=== PATIENT | male | born 1975 | race Caucasian/White ===

== ENCOUNTER 2016-09-03 19:33 | Emergency (ER) | payer OTHER ==
[~2016-09-03 19:33] MED LIST: ALBUTEROL HFA60 DOSE IN; BACTRIM DS1 TAB PO; COMBIVENT RESPIMAT IN; METHADONE HCL10 MG PO; PREDNISONE20 MG PO
--- NOTE | 2016-09-03 21:04 | DIAGNOSTIC IMAGING REPORT ---
PROCEDURE: XR CHEST 2 VIEW INDICATION: FEVER TECHNIQUE: PA and lateral view. COMPARISON: Chest x-ray 06/07/2016 FINDINGS: Hyperinflation. Lungs are clear. Cardiovascular structures are normal. Gastric lap band device in the upper abdomen. Bony thorax is unremarkable. IMPRESSION: 1. Negative chest.
--- NOTE | 2016-09-03 21:19 | ED ORDER SUMMARY ---
..... Patient: PAWEL XAVIER OrderSheet [facility] VisitID: [id number] [address] [place] [address] 41y, M Registration Date/Time: 09/03/2016 ORDER SHEET Weight: 85.2 kg (stated) Allergies: Amoxicillin GENERAL ORDERS: EKG - ER Stat (19:51 09/03/2016 DBeyer R.N. per protocol) (Cancelled: Other19:53 46elks ER Sas Bi Developer) Chest 2V Urgent (19:52 09/03/2016 HBivens A.R.N.P.) (Ack 19:57 Khari) (21:11 Arvin) MEDICATION ORDERS: Albuterol Neb Tx 1 unit dose (NOW) (19:44 09/03/2016 DBeyer R.N. per protocol) (19:53 46elks ER Sas Bi Developer) Albuterol Neb w Atrovent 1 unit dose (NOW) (19:53 09/03/2016 HBivens A.R.N.P.) (Ack 19:59 CHategekimana) Albuterol Neb Tx 2 unit doses (NOW) (19:53 09/03/2016 HBivens A.R.N.P.) (Ack 19:59 CHategekimana) Solu-MEDROL IM 125 mg (NOW) (19:53 09/03/2016 HBivens A.R.N.P.) (Ack 19:59 CHategekimana) (20:08 DBeyer R.N.) IV FLUIDS: ORDER SHEET NOTES: [Electronically signed by Brianna Beard A.R.N.P. (22:04 09/03/2016)] [Electronically signed by Marlo Meyers R.N. (00:43 09/04/2016)] [Electronically locked/signed by Marlo Meyers R.N. (00:43 09/04/2016)]
--- NOTE | 2016-09-03 21:19 | ED NURSING NOTES ---
Clinical Report - Nurses [facility] [address] [place] [address] 09/03/2016 19:34 Patient: PAWEL XAVIER TRIAGE Triage time 19:41 Sep 03 2016. Acuity: LEVEL 2. Chief Complaint: SHORTNESS OF BREATH, DIFFICULTY BREATHING and "ASTHMA ATTACK". --19:43 Marlo Meyers R.N. 19:41 09/03/16. BP: 151/105. HR: 130. RR: 22. O2 saturation: 90%. Temp: 100.2 F. Pain level now 0/10. --19:43 Marlo Meyers R.N. 19:44 09/03/16. O2 saturation: 85%. --19:44 Marlo Meyers R.N. Weight: 85.2 kg stated. Height/Length: 75 inches Per Patient. BMI: 23.5. --19:43 Marlo Meyers R.N. Medications Albuterol Sulfate Inhalation (currently out). --20:10 Marlo Meyers R.N. Allergies Amoxicillin. --20:10 Marlo Meyers R.N. History Arrived by private vehicle. ( Pt reports SOB for multiple days worse today). 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 SOCIAL HX: Never smoker. No alcohol use or drug use. --19:43 Marlo Meyers R.N. SOCIAL HX: History of drug use: methamphetamines. (hx of abuse 20:11 Sep 03 2016). --20:11 Marlo Meyers R.N. PROBLEMS: Lifestyle / Substance Problems. Abscess. Lung Disease. Substance Abuse. Cellulitis. Infections. Hives. Allergic Reaction. --20:10 Marlo Meyers R.N. ADDITIONAL SURGERIES: Adenoidectomy. Appendectomy. Bariatric Surgery. Fracture Repair. Lithotripsy. Pyloric Stenosis Surgery. Tonsillectomy. --20:10 Marlo Meyers R.N. Interventions ID band on patient. To treatment room. --19:43 Marlo Meyers R.N. PHYSICAL ASSESSMENT GENERAL / NEURO / PSYCH: Alert. Oriented X 4. Appears anxious. RESPIRATORY: Moderate respiratory distress. The patient can speak in full sentences. Expiratory and inspiratory bilateral wheezes diffusely. --19:46 Marlo Meyers R.N. GI / : Abdomen soft. Bowel sounds within normal limits. SKIN: Skin is warm and dry. --19:46 Marlo Meyers R.N. NURSING PROGRESS NOTES director of ancillary services and pulse oximeter placed on patient. Reassurance given. Call light placed in reach. Side rails up x 1. Bed placed in lowest position. ( Pt gowned on broiler manager , neb treatment in progress DESIGNER WRITER is at bedside). --19:52 Marlo Meyers R.N. 19:53 09/03/2016 Albuterol Neb TX Nebulizer 1 unit dose given. Given by the respiratory therapist. Allergies verified and confirmed 5 rights. --19:53 Serge Stanton, ER Patient Support Assistant 20:07 09/03/2016 Site #1 started via IV in the right forearm with an 20g angiocath, with aseptic technique; one attempt. Blood drawn: rainbow set. Labeled in the presence of the patient. Saline lock flushed with saline. --20:07 Marlo Meyers R.N. 20:08 09/03/2016 SOLU-MEDROL (MethylPREDNISolone Sodium Succ) IVP 125 mg given over 2 minute(s) via site #1. Allergies verified and confirmed 5 rights. IV patency established. IV site checked: no pain, redness, or swelling. IV flushed thoroughly pre- and post-medication administration. IVP given by RN (DOSE given IV per provider verb al order). --20:08 Marlo Meyers R.N. ( Pt 85% RA 02 placed on 2L NC increased to 95 02 sat). --20:46 Marlo Meyers R.N. 20:45 09/03/16. BP: 134/85. HR: 123. O2 saturation: 85%. --20:46 Marlo Meyers R.N. DISPOSITION / DISCHARGE 21:31 09/03/2016 Site #1 removed upon discharge. Bandage applied. --21:31 Marlo Meyers R.N. No learning barriers present. Discharge instructions provided and reviewed with the patient. Reviewed warnings. Reviewed medication(s). Treatments reviewed. Reviewed referrals. Patient verbalized understanding. Written instructions provided in Indonesian. The patient was discharged by the nurse practitioner. He was discharged home and accompanied by books binder. He left the Emergency Department ambulatory and via private vehicle. Plant Tour Guide driving. ( Pt ambulated on discharge verbalized feeling safe to go home and understanding of discharge instructions follow up care and medication admin. Pt no longer had distress while breathing). --21:32 Marlo Meyers R.N. 21:30 09/03/16. BP: 133/80. HR: 118. RR: 20. O2 saturation: 95%. Temp: 99.5 F. Pain level now 0/10. --21:32 Marlo Meyers R.N. Departure time: 2130. --21:32 Marlo Meyers R.N. Locked/Released at 09/04/2016 0:43 by Marlo Meyers R.N.
--- NOTE | 2016-09-03 21:19 | ED NURSING NOTES ---
Clinical Report - Nurses [place] [address] [place] [address] 09/03/2016 19:34 Patient: PAWEL XAVIER TRIAGE Triage time 19:41 Sep 03 2016. Acuity: LEVEL 2. Chief Complaint: SHORTNESS OF BREATH, DIFFICULTY BREATHING and "ASTHMA ATTACK". --19:43 Marlo Meyers R.N. 19:41 09/03/16. BP: 151/105. HR: 130. RR: 22. O2 saturation: 90%. Temp: 100.2 F. Pain level now 0/10. --19:43 Marlo Meyers R.N. 19:44 09/03/16. O2 saturation: 85%. --19:44 Marlo Meyers R.N. Weight: 85.2 kg stated. Height/Length: 75 inches Per Patient. BMI: 23.5. --19:43 Marlo Meyers R.N. Medications Albuterol Sulfate Inhalation (currently out). --20:10 Marlo Meyers R.N. Allergies Amoxicillin. --20:10 Marlo Meyers R.N. History Arrived by private vehicle. ( Pt reports SOB for multiple days worse today). 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 SOCIAL HX: Never smoker. No alcohol use or drug use. --19:43 Marlo Meyers R.N. SOCIAL HX: History of drug use: methamphetamines. (hx of abuse 20:11 Sep 03 2016). --20:11 Marlo Meyers R.N. PROBLEMS: Lifestyle / Substance Problems. Abscess. Lung Disease. Substance Abuse. Cellulitis. Infections. Hives. Allergic Reaction. --20:10 Marlo Meyers R.N. ADDITIONAL SURGERIES: Adenoidectomy. Appendectomy. Bariatric Surgery. Fracture Repair. Lithotripsy. Pyloric Stenosis Surgery. Tonsillectomy. --20:10 Marlo Meyers R.N. Interventions ID band on patient. To treatment room. --19:43 Marlo Meyers R.N. PHYSICAL ASSESSMENT GENERAL / NEURO / PSYCH: Alert. Oriented X 4. Appears anxious. RESPIRATORY: Moderate respiratory distress. The patient can speak in full sentences. Expiratory and inspiratory bilateral wheezes diffusely. --19:46 Marlo Meyers R.N. GI / : Abdomen soft. Bowel sounds within normal limits. SKIN: Skin is warm and dry. --19:46 Marlo Meyers R.N. NURSING PROGRESS NOTES personnel monitor and pulse oximeter placed on patient. Reassurance given. Call light placed in reach. Side rails up x 1. Bed placed in lowest position. ( Pt gowned on personnel monitor , neb treatment in progress PARAPROFESSIONAL EDUCATION ASSISTANT is at bedside). --19:52 Marlo Meyers R.N. 19:53 09/03/2016 Albuterol Neb [place] Nebulizer 1 unit dose given. Given by the respiratory therapist. Allergies verified and confirmed 5 rights. --19:53 Serge Stanton, ER Manager Recruiting 20:07 09/03/2016 Site #1 started via IV in the right forearm with an 20g angiocath, with aseptic technique; one attempt. Blood drawn: rainbow set. Labeled in the presence of the patient. Saline lock flushed with saline. --20:07 Marlo Meyers R.N. 20:08 09/03/2016 SOLU-MEDROL (MethylPREDNISolone Sodium Succ) IVP 125 mg given over 2 minute(s) via site #1. Allergies verified and confirmed 5 rights. IV patency established. IV site checked: no pain, redness, or swelling. IV flushed thoroughly pre- and post-medication administration. IVP given by RN (DOSE given IV per provider verb al order). --20:08 Marlo Meyers R.N. ( Pt 85% RA 02 placed on 2L NC increased to 95 02 sat). --20:46 Marlo Meyers R.N. 20:45 09/03/16. BP: 134/85. HR: 123. O2 saturation: 85%. --20:46 Marlo Meyers R.N. DISPOSITION / DISCHARGE 21:31 09/03/2016 Site #1 removed upon discharge. Bandage applied. --21:31 Marlo Meyers R.N. No learning barriers present. Discharge instructions provided and reviewed with the patient. Reviewed warnings. Reviewed medication(s). Treatments reviewed. Reviewed referrals. Patient verbalized understanding. Written instructions provided in Swedish. The patient was discharged by the nurse practitioner. He was discharged home and accompanied by apprenticeship training representative. He left the Emergency Department ambulatory and via private vehicle. Stencil Machine Operator driving. ( Pt ambulated on discharge verbalized feeling safe to go home and understanding of discharge instructions follow up care and medication admin. Pt no longer had distress while breathing). --21:32 Marlo Meyers R.N. 21:30 09/03/16. BP: 133/80. HR: 118. RR: 20. O2 saturation: 95%. Temp: 99.5 F. Pain level now 0/10. --21:32 Marlo Meyers R.N. Departure time: 2130. --21:32 Marlo Meyers R.N. Locked/Released at 09/04/2016 0:43 by Marlo Meyers R.N.
--- NOTE | 2016-09-03 21:19 | ED ORDER SUMMARY ---
..... Patient: PAWEL XAVIER OrderSheet [facility] VisitID: [id number] [address] [place] [address] 41y, M Registration Date/Time: 09/03/2016 ORDER SHEET Weight: 85.2 kg (stated) Allergies: Amoxicillin GENERAL ORDERS: EKG - ER Stat (19:51 09/03/2016 DBeyer R.N. per protocol) (Cancelled: Other19:53 Accumetrics ER Heel Dipper) Chest 2V Urgent (19:52 09/03/2016 HBivens A.R.N.P.) (Ack 19:57 Khari) (21:11 Arvin) MEDICATION ORDERS: Albuterol Neb Tx 1 unit dose (NOW) (19:44 09/03/2016 DBeyer R.N. per protocol) (19:53 Accumetrics ER Heel Dipper) Albuterol Neb w Atrovent 1 unit dose (NOW) (19:53 09/03/2016 HBivens A.R.N.P.) (Ack 19:59 CHategekimana) Albuterol Neb Tx 2 unit doses (NOW) (19:53 09/03/2016 HBivens A.R.N.P.) (Ack 19:59 CHategekimana) Solu-MEDROL IM 125 mg (NOW) (19:53 09/03/2016 HBivens A.R.N.P.) (Ack 19:59 CHategekimana) (20:08 DBeyer R.N.) IV FLUIDS: ORDER SHEET NOTES: [Electronically signed by Brianna Beard A.R.N.P. (22:04 09/03/2016)] [Electronically signed by Marlo Meyers R.N. (00:43 09/04/2016)] [Electronically locked/signed by Marlo Meyers R.N. (00:43 09/04/2016)]
--- NOTE | 2016-09-03 21:19 | ED CLINICAL REPORT ---
Clinical Report - Physicians/Mid Levels [facility] [address] [place] [address] 09/03/2016 19:34 Patient: PAWEL XAVIER Time Seen: 19:51; initial patient contact, initial documentation, patient care assumed. Arrived- By private vehicle. Historian- patient. HISTORY OF PRESENT ILLNESS Chief Complaint: DYSPNEA, WHEEZING and HISTORY OF ASTHMA. This started about 1 weeks ago and is still present. The dyspnea is described as moderate. He has had dyspnea at rest. The patient has had a cough and orthopnea. No chest pain or discomfort. See nurses notes for current asthma threapy. Asthma triggers: unknown. Takes asthma medications (inhaled albuterol, albuterol by nebulizer), missing tubing to do neb tx at home. Similar symptoms previously: Chronically, milder. Recent medical care: Not recently seen/assessed. REVIEW OF SYSTEMS The patient has had a nasal discharge. No sinus drainage or fever. All systems otherwise negative, except as recorded above. SOCIAL HISTORY Never smoker. No alcohol use or drug use. No recent travel. Is a local resident. FAMILY HISTORY Negative. ADDITIONAL NOTES The nursing notes have been reviewed with agreement regarding the chief complaint, HPI, ROS, PMH and patient medications and allergies. PHYSICAL EXAM Vital Signs: 09/03/2016 19:41 BP: 151/105. HR: 130. RR: 22. O2 saturation: 90%. Temp: 100.2 F. Have been reviewed as abnormal and appear to be correct. Blood pressure normal. Tachycardic. Respiratory rate normal. Febrile. Oxygen saturation normal. Appearance: Alert. No acute distress. Eyes: Pupils equal, round and reactive to light. Eyes normal inspection. Neck: Normal inspection. Neck supple. CVS: Heart rate / rhythm abnormal. Tachycardia (ventricular rate = 136). Heart sounds normal. Pulses normal. Respiratory: No respiratory distress. Breath sounds abnormal. Expiratory and inspiratory moderate bilateral wheezes diffusely. Back: Normal inspection. Skin: Skin warm and dry. Normal skin color. No rash. Normal skin turgor. Extremities: Extremities exhibit normal ROM. No lower extremity edema. Neuro: Oriented X 3. No motor deficit. No sensory deficit. LABS, X-RAYS, AND EKG Chest X-ray: Normal Chest X-Ray. (IMPRESSION: 1. Negative chest. Electronically Final signed by:Russell Archer MD 09/03/2016 9:04:30 PM). The X-rays were interpreted by the radiologist and contemporaneously by me. PROGRESS AND PROCEDURES Course of Care: 2109. Resp even and unlabored, B breath sounds with very mild wheezing heard thru-out, pt stating he felt much better and and ready to go home, po97%, pt asking for abx. Patient counseled in person regarding the patient's stable condition, test results and diagnosis. 21:18. Differential Diagnosis: Other possible considerations: asthma, uri, flu, pneumonia, bronchitis. Above considerations are based on history and physical exam. Differential diagnosis was discussed with patient. Disposition: Discharged home in good and improved condition (21:18). Condition: good and stable. CLINICAL IMPRESSION Acute bronchitis associated with asthma and bronchospasm. No chronic obstructive pulmonary disease. Acute fever INSTRUCTIONS Alternate Tylenol (Acetaminophen) and Motrin (Ibuprofen) for fever, temperature greater than 101 degrees orally. Take according to label instructions. Avoid tobacco smoke. Warnings: GENERAL WARNINGS: Return or contact your physician immediately if your condition worsens or changes unexpectedly, if not improving as expected, or if other problems arise. Specifically return if problem worsens. Prescription Medications: Albuterol HFA oral inhaler: inhale 1 to 2 puffs every four to six hours as needed for difficulty breathing. Dispense one (1) unit. No refills. Prednisone 20 mg: take 3 orally every day for 5 days. Dispense fifteen (15). No refills. Zithromax 250 mg tablets: take 2 orally today, followed by 1 daily for the next 4 days. No refills. Substitution is permissible. Follow-up: Follow up with your doctor in about three days even if well. Call for an appointment. Summary of care provided to patient. Understanding of the discharge instructions verbalized by patient. (Electronically signed by Brianna Beard A.R.N.P. 09/03/2016 22:04)
--- NOTE | 2016-09-04 00:44 | ED DISCHARGE INSTRUCTIONS ---
Patient: PAWLE XAVIER General Instructions [facility] VisitID: [id number] [place] [address] 41y, M Registration Date/Time: 09/03/2016 Acute bronchitis associated with asthma and bronchospasm. No chronic obstructive pulmonary disease. Acute fever INSTRUCTIONS Alternate Tylenol (Acetaminophen) and Motrin (Ibuprofen) for fever, temperature greater than 101 degrees orally. Take according to label instructions. Avoid tobacco smoke. Warnings: GENERAL WARNINGS: Return or contact your physician immediately if your condition worsens or changes unexpectedly, if not improving as expected, or if other problems arise. Specifically return if problem worsens. Prescription Medications: Albuterol HFA oral inhaler: inhale 1 to 2 puffs every four to six hours as needed for difficulty breathing. Dispense one (1) unit. No refills. Prednisone 20 mg: take 3 orally every day for 5 days. Dispense fifteen (15). No refills. Zithromax 250 mg tablets: take 2 orally today, followed by 1 daily for the next 4 days. No refills. Substitution is permissible. Follow-up: Follow up with your doctor in about three days even if well. Call for an appointment. Summary of care provided to patient. Understanding of the discharge instructions verbalized by patient. ADDITIONAL INFORMATION Bronchitis (Adult: Abx Tx) BRONCHITIS is an infection of the air passages (bronchial tubes). It often occurs during the common cold. Symptoms include cough with mucus (phlegm) and low-grade fever. Bronchitis usually lasts 7-14 days. Mild cases can be treated with simple home remedies. More severe infection is treated with an antibiotic. Home Care: If symptoms are severe, rest at home for the first 2-3 days. When you resume activity, don't let yourself get too tired. Do not smoke. Avoid being exposed to the smoke of others. You may use acetaminophen (Tylenol) or ibuprofen (Motrin, Advil) to control fever or pain, unless another medicine was prescribed for this. [NOTE: If you have chronic liver or kidney disease or ever had a stomach ulcer or GI bleeding, talk with your doctor before using these medicines.] Your appetite may be poor, so a light diet is fine. Avoid dehydration by drinking 6-8 glasses of fluids per day (water, soft, drinks, juices, tea, soup, etc.). Extra fluids will help loosen secretions in the lungs. [id number]-yshgswa cough medicines that containdextromethorphan(such as Robitussin DM) and decongestants (Actifed or Sudafed) may help relieve cough and congestion. [NOTE: Do not use decongestants if you have high blood pressure.] Finish all antibiotic medicine, even if you are feeling better after only a few days. Follow Up with your doctor or as directed if you dont start to feel better after three days. [NOTE: If you are age 65 or older, or if you have chronic asthma or COPD, we recommend a PNEUMOCOCCAL VACCINATION every five years and a yearly INFLUENZAVACCINATION (FLU-SHOT) every . Ask your doctor about this. If you had an X-ray, a radiologist will review it. You will be notified of any new findings that may affect your care.] Get Prompt Medical Attention if any of the following occur: Fever over 100.4F (38.0C) for more than three days Trouble breathing, wheezing or pain with breathing Coughing up blood or increased amounts of colored sputum Weakness, drowsiness, headache, facial pain, ear pain or a stiff neck Bronchitis With Wheezing (Viral Or Bacterial: Adult) Bronchitis is an infection of the air passages. It often occurs during the common cold and is usually caused by a virus. Symptoms include cough with mucus (phlegm) and low-grade fever. If there is a lot of inflammation, air flow is restricted. The air passages may also go into spasm, especially if you are an asthmatic. This causes wheezing and difficulty breathing even in persons who do not have asthma. Bronchitis usually lasts 7-14 days. The wheezing should improve with treatment during the first week. An inhaler is often prescribed to relax the air passages and stop wheezing. Antibiotics will be prescribed if your doctor thinks there is also a secondary bacterial infection. Home Care: If symptoms are severe, rest at home for the first 2-3 days. When resuming activity, don't let yourself become overly tired. Do not smoke and avoid exposure to the smoke of others. You may use acetaminophen (Tylenol) or ibuprofen (Motrin, Advil) to control fever, unless another medicine was prescribed. [NOTE: If you have chronic liver or kidney disease or ever had a stomach ulcer or GI bleeding, talk with your doctor before using these medicines.] (Aspirin should never be used in anyone under 18 years of age who is ill with a fever. It may cause severe liver damage.) Your appetite may be poor so a light diet is fine. Avoid dehydration by drinking 6-8 glasses of fluids per day (water, soft, drinks, juices, tea, soup, etc.). Extra fluids will help loosen secretions in the lungs. Ydse-icx-jmdhklt cough medicines that containdextromethorphan(such as Robitussin DM) and decongestants (Actifed or Sudafed) may help relieve cough and congestion. [NOTE: Do not use decongestants if you have high blood pressure.] If you were given an inhaler, use it exactly as directed. If you need to use it more often than prescribed, your condition may be worsening. Contact your doctor or this facility. If prescribed, finish all antibiotic medicine, even if you are feeling better after only a few days. Follow Up With Your Doctor Or As Directed If You Are Not Starting To Feel Better After Three Days. [NOTE: If you are age 65 or older, or if you have chronic asthma or COPD, we recommend a pneumococcal vaccination every five years and a yearly influenza vaccination (flu shot) every . Ask your doctor about this. If you had an x-ray or EKG (electrocardiogram), it will be reviewed by a specialist. You will be notified of any new findings that may affect your care.] Get Prompt Medical Attention If Any Of The Following Occur: Increased wheezing, shortness of breath or pain with breathing Fever of 100.4F (38C) oral or higher, not better with fever medication Coughing up blood or increasing amounts of colored sputum Weakness, drowsiness, headache, facial pain, ear pain or a stiff neck Lower leg swelling, tenderness, redness or pain Febrile Illness, Uncertain Cause (Adult) You have a fever, but the cause is not certain. A fever is a natural reaction of the body to an illness such as infections due to a virus or bacteria. In most cases, the temperature itself is not harmful. It actually helps the body fight infections. A fever does not need to be treated unless you feel very uncomfortable. Sometimes a fever can be an early sign of a more serious infection. Therefore, you should watch for the signs listed below. Home Care: If signs and symptoms are severe, rest at home for the first 2-3 days. When you resume activity, don't let yourself get too tired. Stay away from cigarette smoke (yours and other peoples). You may use acetaminophen (Tylenol) or ibuprofen (Motrin, Advil) to control fever or pain, unless another medicine was prescribed. NOTE: If you have chronic liver or kidney disease or ever had a stomach ulcer or GI bleeding, talk with your doctor before using these medicines. (Aspirin should never be used in anyone under 18 years of age who is ill with a fever. It may cause severe liver damage.) Your appetite may be poor, so a light diet is fine. Avoid dehydration by drinking 6-8 glasses of fluid per day (water, sport drinks such as Gatorade, sodas without caffeine, juices, tea, soup). Extra fluid will help loosen secretions in the nose and lungs. Awig-txi-gouoymz products will not shorten the duration of the illness but may be helpful for the following symptoms: cough (Robitussin DM); sore throat (Chloraseptic lozenges or spray); nasal and sinus congestion (Actifed or Sudafed). NOTE: Do not use decongestants if you have high blood pressure. Follow Up with your doctor or as advised if you do not start to improve over the next week. Get Prompt Medical Attention if any of the following occur: Cough with lots of colored sputum (mucus) or blood in your sputum Chest pain, shortness of breath, wheezing or difficulty breathing Severe headache, face, neck, throat or ear pain Feeling drowsy or confused Abdominal pain, repeated vomiting or diarrhea Joint pain or a new rash Burning when urinating Fever of 100.4F (38C) oral or higher, not better with fever medication Feeling weak or dizzy Convulsion Taking Your Child's Temperature If your child feels hot, then check the temperature. Under 3 months : Start with a AXILLARY temperature. If it is above 99.0 F (37.2 C), take a RECTAL temperature. 3 months to 4 years : Measure a RECTAL temperature, or an EAR temperature. Over 4 years : Measure an ORAL temperature. Rectal Temperature is the most accurate. Ear temperature is not as accurate as a rectal or oral temperature, but is more convenient and can be used in the 3 month to 4 year old. Other methods such as plastic strips , forehead devices , and pacifier thermometers are even less accurate and they are not recommended. If you do not know how to use a thermometer, ask your nurse or pharmacist. Oral Method: Normal: 98.6 F (37.0 C). Range of normal: Up to 99.0 F (37.2 C). Recommended Age: Use this method for children older than 4 or 5 years of age, only if cooperative. 1) Wait at least 20 minutes after drinking or eating before taking an oral temperature. 2) Place the tip of a the thermometer under the child's tongue. 3) Have child close lips gently, without biting on the thermometer. 4) Keep under the tongue until the thermometer beeps. 5) Remove thermometer and read the temperature in the display. 6) Clean the thermometer with alcohol, or soap and water after each use. Axillary Method (UNDER THE ARM): Normal: 97.6 F (36.6 C) Range of Normal: Up to 98.6 F (37.0 C) Recommended Age: Use this method for children under 4 years of age or any uncooperative child. 1) Make sure armpit is dry and the child does not have clothing between arm and chest. 2) Place the tip of the thermometer high up in the armpit. 4) Hold the child's arm snug against their body with the thermometer in place until it beeps. 5) Remove thermometer and read the temperature in the display. 6) Clean the thermometer with alcohol, or soap and water after each use. Rectal Method: Normal: 99.6 F (37.6 C). Range of Normal: Up to 100.4 F (38.0 C). Recommended age: Use this method for children under 4 years of age or any uncooperative child. 1) Lubricate the tip of a rectal thermometer with a lubricant such as Vaseline jelly or K-Y jelly. 2) Lay your child face down across your lap, or on his/her side with knees bent toward the chest. Spread buttocks so that the anus can be easily seen. 3) Hold the thermometer between your thumb and index finger with the edge of your hand resting on the buttocks. Slowly and gently insert thermometer into the anus about one inch. The tip should slide in easily. Do not force it since they may cause injury. 4) Do not let go of the thermometer! Hold it carefully in place until it beeps. 5) Remove thermometer and read the temperature in the display. 6) Clean the thermometer with alcohol, or soap and water after each use. When To Seek Help Call your doctor or return here if you have an younger than 3 months with a temperature of 100.4 F (38.0 C) or an older child with a fever higher than 104.0 F (40.0 C). Fever Control (Child) A fever is a natural reaction of the body to an illness. Your kyler temperature itself usually isnt harmful. A fever actually helps the body fight infections. A fever usually doesnt need to be treated unless your child is uncomfortable and looks and acts sick. Or if your child has a chronic health condition or has had febrile seizures in the past. Home care If your child feels hot, check his or her temperature: [place] to 5 months of age, check rectal or forehead (temporal) temperature 6 months to 3 years, check rectal, forehead, or ear temperature 4 years and older, check rectal, forehead, ear, or oral temperature Note: Rectal temperature is the most reliable temperature for infants up to 2 months old. You shouldnt use other items like plastic strips or pacifier thermometers. These are less accurate. If you dont know how to use a thermometer, ask your kyler nurse or pharmacist. Keep your child dressed in lightweight clothing. This is to help your child lose the excess body heat. The fever will go up if you dress your child in extra layers or wrap your child in blankets. Fever causes the body to lose water. For infants under 1 year old, keep giving regular formula or breast feedings. Between feedings, give oral rehydration solution. You can get this at the grocery or drugstore without a prescription. For children1 year or older, give plenty of fluids. Good fluids include water, juice, gelatin water, non-caffeinated soft drinks, daniel nayana, lemonade, fruit drinks, and frozen fruit pops. Fever medications Watch how your child is acting and feeling. You dont need to give fever medication if your child is active and alert, and is eating and drinking. You may need to give fever medicine if your child has a chronic health condition or has had febrile seizures in the past. Talk with your kyler health care provider about when to treat your kyler fever. You may give acetaminophen or ibuprofen if your child: Becomes less and less active Looks and acts sick Isnt sleeping, drinking, or eating as usual Has a temperature of 100.4F (38C) or higher Use the dose recommended by your kyler health care provider or the dose listed on the medicine bottle label for your kyler age and weight. If your child cant take or keep down oral medicine, ask your pharmacist for acetaminophen suppositories. You can get these without a prescription. Based on your kyler medical condition, ask your kyler health care provider if you should wake your child to give fever medicine. Sleep is important to help your child get better. Follow these tips when giving fever medicine: Dont give ibuprofen to children younger than 6 months old. Read the label before giving fever medicine. This is to make sure that you are giving the right dose. The dose should be right for your kyler age and weight. If your child is taking other medicine, check the list of ingredients. Look for acetaminophen or ibuprofen. If so, tell your kyler health care provider before giving your child the medicine. This is to prevent a possible overdose. If your child isyounger than 2 years,talk with your kyler health care provider to find out the right medicine to use and how much to give. Dont give aspirin in a child under 18 years old who is ill with a fever. Aspirin may cause severe liver damage. Dont give ibuprofen if your child is vomiting constantly and is dehydrated. Once the fever is under control, keep giving either the acetaminophen or ibuprofen. Give whichever medicine works best. If either medicine alone doesnt keep the fever down, contact your kyler health care provider. Follow-up care Follow up with your kyler health care provider if your child isnt getting better. When to seek medical care Get prompt medical attention if any of these occur: Your child is 3 months old or younger and has a fever of 100.4F (38C) or higher. Get medical care right away because fever in young infants can be a sign of a dangerous infection. Your child has repeated fevers above 104F (40C) at any age. Pain that gets worse. A may show pain with crying that cant be soothed. Stiff or painful neck, headache, or repeated diarrhea or vomiting. Your child is unusually fussy, drowsy, or confused, or has a seizure. Rash or purple spots on the skin. Signs of dehydration, including no wet diapers for 8 hours, no tears when crying, sunken eyes, or dry mouth. Call your kyler health care provider if: Your child is 3 to 6 months old and has a fever of 102F (38.8C). Your child is 6 months to 2 years old and his or her fever doesnt get better in 24 hours. Your child is 2 years old or older and his or her fever doesnt get better after 3 days. Albuterol Sulfate Pressurized inhalation, suspension What is this medicine? ALBUTEROL (al BYOO ter ole) is a bronchodilator. It helps open up the airways in your lungs to make it easier to breathe. This medicine is used to treat and to prevent bronchospasm. How should I use this medicine? This medicine is for inhalation through the mouth. Follow the directions on your prescription label. Take your medicine at regular intervals. Do not use more often than directed. Make sure that you are using your inhaler correctly. Ask you doctor or health care provider if you have any questions. Talk to your jack strip assembler regarding the use of this medicine in children. Special care may be needed. What side effects may I notice from receiving this medicine? Side effects that you should report to your doctor or health children's zoo caretaker as soon as possible: allergic reactions like skin rash, itching or hives, swelling of the face, lips, or tongue breathing problems chest pain feeling faint or lightheaded, falls high blood pressure irregular heartbeat fever muscle cramps or weakness pain, tingling, numbness in the hands or feet vomiting Side effects that usually do not require medical attention (report to your doctor or health children's zoo caretaker if they continue or are bothersome): cough difficulty sleeping headache nervousness or trembling stomach upset stuffy or runny nose throat irritation unusual taste What may interact with this medicine? anti-infectives like chloroquine and pentamidine caffeine cisapride diuretics medicines for colds medicines for depression or for emotional or psychotic conditions medicines for weight loss including some herbal products methadone some antibiotics like clarithromycin, erythromycin, levofloxacin, and linezolid some heart medicines steroid hormones like dexamethasone, cortisone, hydrocortisone theophylline thyroid hormones What if I miss a dose? If you miss a dose, use it as soon as you can. If it is almost time for your next dose, use only that dose. Do not use double or extra doses. Where should I keep my medicine? Keep out of the reach of children. Store at room temperature between 15 and 30 degrees C (59 and 86 degrees F). The contents are under pressure and may burst when exposed to heat or flame. Do not freeze. This medicine does not work as well if it is too cold. Throw away any unused medicine after the expiration date. Inhalers need to be thrown away after the labeled number of puffs have been used or by the expiration date; whichever comes first. Ventolin HFA should be thrown away 12 months after removing from foil pouch. Check the instructions that come with your medicine. What should I tell my health care provider before I take this medicine? They need to know if you have any of the following conditions: diabetes heart disease or irregular heartbeat high blood pressure pheochromocytoma seizures thyroid disease an unusual or allergic reaction to albuterol, levalbuterol, sulfites, other medicines, foods, dyes, or preservatives or trying to get breast-feeding What should I watch for while using this medicine? Tell your doctor or health children's zoo caretaker if your symptoms do not improve. Do not use extra albuterol. If your asthma or bronchitis gets worse while you are using this medicine, call your doctor right away. If your mouth gets dry try chewing sugarless gum or sucking hard candy. Drink water as directed. Prednisone Oral tablet What is this medicine? PREDNISONE (PRED ni sone) is a corticosteroid. It is commonly used to treat inflammation of the skin, joints, lungs, and other organs. Common conditions treated include asthma, allergies, and arthritis. It is also used for other conditions, such as blood disorders and diseases of the adrenal glands. How should I use this medicine? Take this medicine by mouth with a glass of water. Follow the directions on the prescription label. Take this medicine with food. If you are taking this medicine once a day, take it in the morning. Do not take more medicine than you are told to take. Do not suddenly stop taking your medicine because you may develop a severe reaction. Your doctor will tell you how much medicine to take. If your doctor wants you to stop the medicine, the dose may be slowly lowered over time to avoid any side effects. Talk to your jack strip assembler regarding the use of this medicine in children. Special care may be needed. What side effects may I notice from receiving this medicine? Side effects that you should report to your doctor or health children's zoo caretaker as soon as possible: allergic reactions like skin rash, itching or hives, swelling of the face, lips, or tongue changes in emotions or moods changes in vision depressed mood eye pain fever or chills, cough, sore throat, pain or difficulty passing urine increased thirst swelling of ankles, feet Side effects that usually do not require medical attention (report to your doctor or health children's zoo caretaker if they continue or are bothersome): confusion, excitement, restlessness headache nausea, vomiting skin problems, acne, thin and shiny skin trouble sleeping weight gain What may interact with this medicine? Do not take this medicine with any of the following medications: metyrapone mifepristone This medicine may also interact with the following medications: aminoglutethimide amphotericin B aspirin and aspirin-like medicines barbiturates certain medicines for diabetes, like glipizide or glyburide cholestyramine cholinesterase inhibitors cyclosporine digoxin diuretics ephedrine female hormones, like estrogens and control pills isoniazid ketoconazole NSAIDS, medicines for pain and inflammation, like ibuprofen or naproxen phenytoin rifampin toxoids vaccines warfarin What if I miss a dose? If you miss a dose, take it as soon as you can. If it is almost time for your next dose, talk to your doctor or health children's zoo caretaker. You may need to miss a dose or take an extra dose. Do not take double or extra doses without advice. Where should I keep my medicine? Keep out of the reach of children. Store at room temperature between 15 and 30 degrees C (59 and 86 degrees F). Protect from light. Keep container tightly closed. Throw away any unused medicine after the expiration date. What should I tell my health care provider before I take this medicine? They need to know if you have any of these conditions: [place]'s syndrome diabetes glaucoma heart disease high blood pressure infection (especially a virus infection such as chickenpox, cold sores, or herpes) kidney disease liver disease mental illness myasthenia gravis osteoporosis seizures stomach or intestine problems thyroid disease an unusual or allergic reaction to lactose, prednisone, other medicines, foods, dyes, or preservatives or trying to get breast-feeding What should I watch for while using this medicine? Visit your doctor or health children's zoo caretaker for regular checks on your progress. If you are taking this medicine over a prolonged period, carry an identification card with your name and address, the type and dose of your medicine, and your doctor's name and address. This medicine may increase your risk of getting an infection. Tell your doctor or health children's zoo caretaker if you are around anyone with measles or chickenpox, or if you develop sores or blisters that do not heal properly. If you are going to have surgery, tell your doctor or health children's zoo caretaker that you have taken this medicine within the last twelve months. Ask your doctor or health children's zoo caretaker about your diet. You may need to lower the amount of salt you eat. This medicine may affect blood sugar levels. If you have diabetes, check with your doctor or health children's zoo caretaker before you change your diet or the dose of your diabetic medicine. Azithromycin Oral tablet What is this medicine? AZITHROMYCIN (az ith alan THAD sin) is a macrolide antibiotic. It is used to treat or prevent certain kinds of bacterial infections. It will not work for colds, flu, or other viral infections. How should I use this medicine? Take this medicine by mouth with a full glass of water. Follow the directions on the prescription label. The tablets can be taken with food or on an empty stomach. If the medicine upsets your stomach, take it with food. Take your medicine at regular intervals. Do not take your medicine more often than directed. Take all of your medicine as directed even if you think your are better. Do not skip doses or stop your medicine early. Talk to your jack strip assembler regarding the use of this medicine in children. Special care may be needed. What side effects may I notice from receiving this medicine? Side effects that you should report to your doctor or health children's zoo caretaker as soon as possible: allergic reactions like skin rash, itching or hives, swelling of the face, lips, or tongue confusion, nightmares or hallucinations dark urine difficulty breathing hearing loss irregular heartbeat or chest pain pain or difficulty passing urine redness, blistering, peeling or loosening of the skin, including inside the mouth white patches or sores in the mouth yellowing of the eyes or skin Side effects that usually do not require medical attention (report to your doctor or health children's zoo caretaker if they continue or are bothersome): diarrhea dizziness, drowsiness headache stomach upset or vomiting tooth discoloration vaginal irritation What may interact with this medicine? Do not take this medicine with any of the following medications: lincomycin This medicine may also interact with the following medications: amiodarone antacids cyclosporine digoxin magnesium nelfinavir phenytoin warfarin What if I miss a dose? If you miss a dose, take it as soon as you can. If it is almost time for your next dose, take only that dose. Do not take double or extra doses. Where should I keep my medicine? Keep out of the reach of children. Store at room temperature between 15 and 30 degrees C (59 and 86 degrees F). Throw away any unused medicine after the expiration date. What should I tell my health care provider before I take this medicine? They need to know if you have any of these conditions: kidney disease liver disease irregular heartbeat or heart disease an unusual or allergic reaction to azithromycin, erythromycin, other macrolide antibiotics, foods, dyes, or preservatives or trying to get breast-feeding What should I watch for while using this medicine? Tell your doctor or health children's zoo caretaker if your symptoms do not improve. Do not treat diarrhea with over the counter products. Contact your doctor if you have diarrhea that lasts more than 2 days or if it is severe and watery. This medicine can make you more sensitive to the sun. Keep out of the sun. If you cannot avoid being in the sun, wear protective clothing and use sunscreen. Do not use sun lamps or tanning beds/booths. You have been given the following additional information: Bronchitis, Antiobiotic Treatment (Adult) Bronchitis With Wheezing (Adult) Febrile Illness, Uncertain Cause (Adult) Thermometer Use Fever Control (Child) Albuterol Sulfate Pressurized inhalation, suspension Prednisone Oral tablet Azithromycin Oral tablet (Electronically signed by Brianna Beard A.R.N.P. 09/03/2016 22:04)
--- NOTE | 2016-09-04 00:44 | ED MED RECONCILIATION SUMMARY ---
Patient: PAWEL XAVIER Medication Reconciliation Report [facility] VisitID: [id number] [address] [place] [address] 41y, M Registration Date/Time: 09/03/2016 Weight: 85.2 kg Height/Length: 75 in. BMI: 23.5 ALLERGIES: Amoxicillin The patient's Home Medications are listed below: THE FOLLOWING MEDICATIONS NEED TO BE RECONCILED: Albuterol Sulfate Inhalation, currently out The source(s) of the original Home Medication information: Not obtained. The following Medications were given to the patient in the Emergency Department: Albuterol [Neb Tx] Neb TX 1 unit dose, administered: 09/03/2016 7:53:00 PM SOLU-MEDROL [IVP] IVP 125 mg, administered: 09/03/2016 8:08:00 PM The following Medications were prescribed to the patient: Albuterol HFA oral inhaler: inhale 1 to 2 puffs every four to six hours as needed for difficulty breathing. Dispense one (1) unit. No refills. -- Brianna Beard, Adam.R.N.P. Prednisone 20 mg: take 3 orally every day for 5 days. Dispense fifteen (15). No refills. -- Brianna Beard A.R.N.P. Zithromax 250 mg tablets: take 2 orally today, followed by 1 daily for the next 4 days. No refills. Substitution is permissible. -- Brianna Beard A.R.N.P.
--- NOTE | 2016-09-04 00:44 | ED MED RECONCILIATION SUMMARY ---
Patient: PAWEL XAVIER Medication Reconciliation Report [facility] VisitID: [id number] [address] [place] [address] 41y, M Registration Date/Time: 09/03/2016 Weight: 85.2 kg Height/Length: 75 in. BMI: 23.5 ALLERGIES: Amoxicillin The patient's Home Medications are listed below: THE FOLLOWING MEDICATIONS NEED TO BE RECONCILED: Albuterol Sulfate Inhalation, currently out The source(s) of the original Home Medication information: Not obtained. The following Medications were given to the patient in the Emergency Department: Albuterol [Neb Tx] Neb TX 1 unit dose, administered: 09/03/2016 7:53:00 PM SOLU-MEDROL [IVP] IVP 125 mg, administered: 09/03/2016 8:08:00 PM The following Medications were prescribed to the patient: Albuterol HFA oral inhaler: inhale 1 to 2 puffs every four to six hours as needed for difficulty breathing. Dispense one (1) unit. No refills. -- Brianna Beard, Adam.R.N.P. Prednisone 20 mg: take 3 orally every day for 5 days. Dispense fifteen (15). No refills. -- Brianna Beard A.R.N.P. Zithromax 250 mg tablets: take 2 orally today, followed by 1 daily for the next 4 days. No refills. Substitution is permissible. -- Brianna Beard A.R.N.P.
--- NOTE | 2016-09-04 00:44 | ED MAR SUMMARY ---
..... Medication Administration Record [facility] [address] [place] [address] Patient: PAWEL XAVIER Visit ID: [id number] 41y, M Weight: 85.2 kg Height/Length: 75 in BMI: 23.5 ALLERGIES: Amoxicillin Given 19:53 09/03/2016 Serge Stanton, ER Dumping Machine Operator Medication Administered: ALBUTEROL [NEB TX], Dose: 1 unit dose Nebulizer Neb TX. Medication Ordered: Albuterol Neb Tx 1 unit dose (NOW). Given 20:08 09/03/2016 Marlo Meyers, RElisabethNElisabeth Medication Administered: SOLU-MEDROL [IVP] (METHYLPREDNISOLONE SODIUM SUCC), Dose: 125 mg IVP over 2 minute(s), Site: #1 right forearm. Medication Ordered: Solu-MEDROL IM 125 mg (NOW).
--- NOTE | 2016-09-04 00:44 | ED MAR SUMMARY ---
..... Medication Administration Record [facility] [address] [place] [address] Patient: PAWEL XAVIER Visit ID: [id number] 41y, M Weight: 85.2 kg Height/Length: 75 in BMI: 23.5 ALLERGIES: Amoxicillin Given 19:53 09/03/2016 Serge Stanton, ER Client Services Assistant Medication Administered: ALBUTEROL [NEB TX], Dose: 1 unit dose Nebulizer Neb TX. Medication Ordered: Albuterol Neb Tx 1 unit dose (NOW). Given 20:08 09/03/2016 Marlo Meyers, RElisabethNElisabeth Medication Administered: SOLU-MEDROL [IVP] (METHYLPREDNISOLONE SODIUM SUCC), Dose: 125 mg IVP over 2 minute(s), Site: #1 right forearm. Medication Ordered: Solu-MEDROL IM 125 mg (NOW).
== END 2016-09-03 21:31 | disposition home or self-care (01) ==
LOC: ED SRH 19:33
DX: J45.909 Unspecified asthma, uncomplicated (principal); R50.9 Fever, unspecified; Z79.51 Long term (current) use of inhaled steroids

== ENCOUNTER 2016-09-25 22:45 | Emergency (ER) | payer OTHER ==
--- NOTE | 2016-09-26 00:08 | ED CLINICAL REPORT ---
Clinical Report - Physicians/Mid Levels [facility] [address] [place] [address] 09/25/2016 22:45 Patient: PAWEL XAVIER Time Seen: 23:32. Arrived- By private vehicle. Historian- patient. HISTORY OF PRESENT ILLNESS Chief Complaint: DYSPNEA. (Pt has had several weeks of bronchospasm with treatment with albuterol and prednisone. Worse x 7 d. Now out of albuterol and prednisone.). Is still present. It has been waxing/waning. The dyspnea is described as moderate and is worsened by exertion. The patient has had a cough, wheezing and dyspnea on exertion. No sputum production, fever, sweating episodes or chills. No chest pain or discomfort, calf pain or foot swelling. Recent medical care: The patient was seen recently by a health care provider. ( 3 wks ago for similar.). REVIEW OF SYSTEMS No eye irritation, sore throat, nausea, vomiting or abdominal pain. No diarrhea or excessive urination. PAST HISTORY PCP: [facility] Illness: Asthma PROBLEMS: . Ureterolithiasis. Crush Injury, Lower Extremity. Hypertension. Tetanus Status. Narcotic Withdrawal. Nephrolithiasis. Bronchitis ADDITIONAL SURGERIES: Adenoidectomy. Appendectomy. Bariatric Surgery. Fracture Repair. Lithotripsy. Pyloric Stenosis Surgery. Tonsillectomy. SOCIAL HISTORY Never smoker. ADDITIONAL NOTES The nursing notes have been reviewed. PHYSICAL EXAM Vital Signs: 09/26/2016 00:14 BP: 156/114. HR: 114. RR: 20. O2 saturation: 98%. Temp: 99 F. Pain level now: 0/10. 09/25/2016 23:31 BP: 151/109. HR: 128. RR: 20. O2 saturation: 97%. 09/25/2016 22:52 BP: 161/108. HR: 125. RR: 20. O2 saturation: 96%. Temp: 99.5 F. Pain level now: 0/10. Appearance: Alert. Patient in mild distress. Eyes: Pupils equal, round and reactive to light. ENT: Pharynx normal. Neck: No jugular venous distention. CVS: Tachycardia. Heart sounds normal. Respiratory: No respiratory distress. Mildly decreased air movement diffusely over both lungs. Moderate bilateral wheezes present. No accessory muscle use. Abdomen: Soft and nontender. Skin: Skin warm. Normal skin color. No rash. Extremities: Extremities exhibit normal ROM. No lower extremity edema. LABS, X-RAYS, AND EKG EKG: Tachycardia. Normal EKG. Not ordered by me. PROGRESS AND PROCEDURES Course of Care: Pt feels much better after a single duoneb and prednisone 60 mg. Disposition: Discharged. Condition: stable. CLINICAL IMPRESSION Asthma with an acute exacerbation. INSTRUCTIONS (SEE YOUR PCP YOU MAY NEED INHALED STEROID). Prescription Medications: Albuterol HFA oral inhaler: inhale 4 puffs via spacer every 4 hours as needed for wheezing. Dispense one (1) unit. One refill. Albuterol 0.083% Inhalation Solution: inhale 1 unit dose (3 mL) via nebulizer every 4 hours as needed for wheezing. Dispense fifty (50) units. No refill. QVAR HFA oral inhaler 40 mcg: inhale 1 puff twice daily. Dispense one (1) unit. No refills. Substitution is permissible Prednisone 10 mg tablets: take 4 orally every day for 5 days, then 2 every day for 3 days, then 1 every day for 2 days. Dispense twenty-eight (28). No refills. PHARM MAY SUBSTITUE FOR QVAR ANOTHER DRUG IN SAME CLASS. Understanding of the discharge instructions verbalized by patient. Follow-up with: [facility], , , [address], , [place], [address] Follow up in five days even if well. Call for an appointment. (Electronically signed by Eric Gunderson MD 09/27/2016 10:54)
--- NOTE | 2016-09-26 00:08 | ED ORDER SUMMARY ---
..... Patient: PAWEL XAVIER OrderSheet [facility] VisitID: [id number] [place] [address] 41y, M Registration Date/Time: 09/25/2016 ORDER SHEET Weight: 81.6 kg (stated) Allergies: Amoxicillin GENERAL ORDERS: EKG - ER Stat (23:04 09/25/2016 HSoule verbal order read back to Ange LOPEZ) (Ack 23:05 SRedmond) (23:11 SRedmond) MEDICATION ORDERS: DuoNeb Neb Tx 1 unit dose (NOW) (23:04 09/25/2016 HSoule verbal order read back to Ange LOPEZ) (23:08 HSoule) Prednisone PO 60 mg (NOW) (00:03 09/26/2016 Ange LOPEZ) (Ack 0:05 HSoule) (0:12 HSoule) IV FLUIDS: ORDER SHEET NOTES: [Electronically signed by Anu Galloway (00:44 09/26/2016)] [Electronically signed by Eric Gunderson MD (10:54 09/27/2016)] [Electronically locked/signed by Anu Galloway (00:44 09/26/2016)]
--- NOTE | 2016-09-26 00:08 | ED CLINICAL REPORT ---
Clinical Report - Physicians/Mid Levels [facility] [address] [place] [address] 09/25/2016 22:45 Patient: PAWEL XAVIER Time Seen: 23:32. Arrived- By private vehicle. Historian- patient. HISTORY OF PRESENT ILLNESS Chief Complaint: DYSPNEA. (Pt has had several weeks of bronchospasm with treatment with albuterol and prednisone. Worse x 7 d. Now out of albuterol and prednisone.). Is still present. It has been waxing/waning. The dyspnea is described as moderate and is worsened by exertion. The patient has had a cough, wheezing and dyspnea on exertion. No sputum production, fever, sweating episodes or chills. No chest pain or discomfort, calf pain or foot swelling. Recent medical care: The patient was seen recently by a health care provider. ( 3 wks ago for similar.). REVIEW OF SYSTEMS No eye irritation, sore throat, nausea, vomiting or abdominal pain. No diarrhea or excessive urination. PAST HISTORY PCP: [facility] Illness: Asthma PROBLEMS: . Ureterolithiasis. Crush Injury, Lower Extremity. Hypertension. Tetanus Status. Narcotic Withdrawal. Nephrolithiasis. Bronchitis ADDITIONAL SURGERIES: Adenoidectomy. Appendectomy. Bariatric Surgery. Fracture Repair. Lithotripsy. Pyloric Stenosis Surgery. Tonsillectomy. SOCIAL HISTORY Never smoker. ADDITIONAL NOTES The nursing notes have been reviewed. PHYSICAL EXAM Vital Signs: 09/26/2016 00:14 BP: 156/114. HR: 114. RR: 20. O2 saturation: 98%. Temp: 99 F. Pain level now: 0/10. 09/25/2016 23:31 BP: 151/109. HR: 128. RR: 20. O2 saturation: 97%. 09/25/2016 22:52 BP: 161/108. HR: 125. RR: 20. O2 saturation: 96%. Temp: 99.5 F. Pain level now: 0/10. Appearance: Alert. Patient in mild distress. Eyes: Pupils equal, round and reactive to light. ENT: Pharynx normal. Neck: No jugular venous distention. CVS: Tachycardia. Heart sounds normal. Respiratory: No respiratory distress. Mildly decreased air movement diffusely over both lungs. Moderate bilateral wheezes present. No accessory muscle use. Abdomen: Soft and nontender. Skin: Skin warm. Normal skin color. No rash. Extremities: Extremities exhibit normal ROM. No lower extremity edema. LABS, X-RAYS, AND EKG EKG: Tachycardia. Normal EKG. Not ordered by me. PROGRESS AND PROCEDURES Course of Care: Pt feels much better after a single duoneb and prednisone 60 mg. Disposition: Discharged. Condition: stable. CLINICAL IMPRESSION Asthma with an acute exacerbation. INSTRUCTIONS (SEE YOUR PCP YOU MAY NEED INHALED STEROID). Prescription Medications: Albuterol HFA oral inhaler: inhale 4 puffs via spacer every 4 hours as needed for wheezing. Dispense one (1) unit. One refill. Albuterol 0.083% Inhalation Solution: inhale 1 unit dose (3 mL) via nebulizer every 4 hours as needed for wheezing. Dispense fifty (50) units. No refill. QVAR HFA oral inhaler 40 mcg: inhale 1 puff twice daily. Dispense one (1) unit. No refills. Substitution is permissible Prednisone 10 mg tablets: take 4 orally every day for 5 days, then 2 every day for 3 days, then 1 every day for 2 days. Dispense twenty-eight (28). No refills. PHARM MAY SUBSTITUE FOR QVAR ANOTHER DRUG IN SAME CLASS. Understanding of the discharge instructions verbalized by patient. Follow-up with: [facility], , , [address], , [place], [address] Follow up in five days even if well. Call for an appointment. (Electronically signed by Eric Gunderson MD 09/27/2016 10:54)
--- NOTE | 2016-09-26 00:08 | ED ORDER SUMMARY ---
..... Patient: PAWEL XAVIER OrderSheet [facility] VisitID: [id number] [place] [address] 41y, M Registration Date/Time: 09/25/2016 ORDER SHEET Weight: 81.6 kg (stated) Allergies: Amoxicillin GENERAL ORDERS: EKG - ER Stat (23:04 09/25/2016 HSoule verbal order read back to Ange LOPEZ) (Ack 23:05 SRedmond) (23:11 SRedmond) MEDICATION ORDERS: DuoNeb Neb Tx 1 unit dose (NOW) (23:04 09/25/2016 HSoule verbal order read back to Ange LOPEZ) (23:08 HSoule) Prednisone PO 60 mg (NOW) (00:03 09/26/2016 Ange LOPEZ) (Ack 0:05 HSoule) (0:12 HSoule) IV FLUIDS: ORDER SHEET NOTES: [Electronically signed by Anu Galloway (00:44 09/26/2016)] [Electronically signed by Eric Gunderson MD (10:54 09/27/2016)] [Electronically locked/signed by Anu Galloway (00:44 09/26/2016)]
--- NOTE | 2016-09-26 00:08 | ED NURSING NOTES ---
Clinical Report - [facility] [address] [place] [address] 09/25/2016 22:45 Patient: PAWEL XAVIER TRIAGE Triage time 22:52 Sep 25 2016. Acuity: LEVEL 3. Chief Complaint: "ASTHMA ATTACK". SEPSIS SCREEN: Sepsis Screen: negative. Negative (no infection suspected/documented). Heart rate greater than 90. LAUREN COMA SCORE: Lauren Coma Scale: 15- eyes open spontaneously (4); best verbal response- oriented x 4 (5); best motor response- obeys commands (6). --22:56 Anu Galloway 22:52 09/25/16. BP: 161/108. HR: 125. RR: 20. O2 saturation: 96% on room air. Temp: 99.5 F (oral). Pain level now: 0/10. --22:56 Anu Galloway. Weight: 81.6 kg stated. Height/Length: 74 inches Per Patient. BMI: 23.1. --22:54 Anu Galloway. Medications Albuterol Sulfate Inhalation. --22:55 Anu Galloway. Allergies Amoxicillin. --22:55 Anu Galloway. Medication/allergy information source: the patient. --22:56 Anu Galloway. History Arrived by private vehicle. Historian: patient. Accompanied by friend. Primary physician (none). Onset. (2 weeks, worse tonight). ( Patient reports that he has a history of asthma. He states he was here recently and was given steroids. He lost his steroids. He has been using the albuterol inhaler without much improvement.). PAST MEDICAL HX: Immunizations: up-to-date. SOCIAL HX: Never smoker. No alcohol use or drug use. No infectious disease exposure. ABUSE ASSESSMENT: No report of abuse. SELF HARM ASSESSMENT: A self harm assessment was performed. The patient answered "no" to the question "Have you recently felt down, depressed, or hopeless?", "Have you noticed less interest or pleasure in doing things?", "Do you have thoughts of harming or killing yourself?", "Are you here because you tried to hurt yourself?", "Have you ever tried to hurt yourself before today?", "Have you recently had thoughts about harming or killing others?" and "Do you have any dangerous items in your possession?". FALL RISK ASSESSMENT: Fall risk assessment completed. No fall risk identified. NUTRITIONAL RISK ASSESSMENT: The nutritional risk assessment revealed no deficiencies. FUNCTIONAL ASSESSMENT: Functional assessment: no impairments noted. LEARNING NEEDS ASSESSMENT: The learning needs assessment revealed no barriers. SKIN INTEGRITY ASSESSMENT: Skin integrity risk assessment completed. No skin integrity risk identified. --22:56 Anu Galloway. PROBLEMS: Fever. Lifestyle / Substance Problems. Abscess. Lung Disease. Ureterolithiasis. Substance Abuse. Cellulitis. Infections. Last Tetanus. Paronychia. Hives. Allergic Reaction. Asthma. Contusion. Crush Injury, Lower Extremity. Hypertension. Immunizations. Bronchitis. Laceration. Tetanus Status. Narcotic Withdrawal. Nephrolithiasis. --22:55 Anu Galloway Bronchitis [RuleOut]. --22:55 Anu Galloway. ADDITIONAL SURGERIES: Adenoidectomy. Appendectomy. Bariatric Surgery. Fracture Repair. Lithotripsy. Pyloric Stenosis Surgery. Tonsillectomy. --22:55 Anu Galloway. Interventions ID band on patient. To treatment room. --22:56 Anu Galloway. PHYSICAL ASSESSMENT Ambulatory to room. Patient gowned. GENERAL / NEURO / PSYCH: Alert. Oriented X 4. Appears in no acute distress. HEENT: Mucous membranes are pink. RESPIRATORY: No respiratory distress. Mild respiratory distress. The patient can speak in full sentences. No accessory muscle use or wheezes. CVS: Cardiac rhythm: sinus tachycardia; (119). SKIN: Skin is warm and dry. --22:56 Anu Galloway. NURSING PROGRESS NOTES Oxygen administered by nasal cannula at 2 liters. cafeteria monitor, pulse oximeter and NIBP monitor placed on patient; monitor alarms on. Patient gowned. Head of bed elevated. Reassurance given to the patient. Two patient identifiers checked. Call light placed in reach. Side rails up x 1. Bed placed in lowest position. Brakes of bed on. Patient ready for evaluation- chart flagged. --22:57 Anu Galloway 23:08 09/25/2016 Duoneb (Ipratropium-Albuterol) Neb TX Nebulizer 1 unit dose given. Given by the respiratory therapist. Allergies verified and confirmed 5 rights. --23:08 Anu Galloway EKG time: (23:16). EKG was performed by a tech and shown to the ED physician. --23:19 Pau Nash 23:31 09/25/16. BP: 151/109. HR: 128. RR: 20. O2 saturation: 97% on room air. --23:31 Anu Galloway Telemetry strip posted to chart. --23:44 McQuoid, Dana, ER Tech1 Reassessment after medication administered. Overall patient status is improved. --23:51 Anu Galloway 00:07 09/26/2016 Prednisone PO Tablets 60 mg given. Allergies verified and confirmed 5 rights. --00:12 Aun Galloway. DISPOSITION / DISCHARGE 00:16 09/26/16. Condition at departure: stable. The goals identified in the patient's plan of care were met. No learning barriers present. Discharge instructions provided and reviewed with the patient. Reviewed medication(s) side effects, precautions, dosing and course information. Prescription(s) given to the patient. Reviewed nebulizer use instructions. Patient verbalized understanding. Written instructions provided in Greenlandic. The patient was discharged by the physician. He was discharged home and accompanied by student counsellor. He left the Emergency Department ambulatory and via private vehicle. Accounting Software Specialist driving. ( Provider aware of vitals, patient clear for discharge). FALL RISK ASSESSMENT: Fall risk assessment completed. No fall risk identified. --00:16 Anu Galloway 00:14 09/26/16. BP: 156/114. HR: 114. RR: 20. O2 saturation: 98% on room air. Temp: 99 F (oral). Pain level now: 0/10. --00:16 Anu Galloway. Locked/Released at 09/26/2016 0:44 by Anu Galloway,
--- NOTE | 2016-09-27 10:54 | ED MAR SUMMARY ---
..... Medication Administration Record [facility] [address] [place] [address] Patient: PAWEL XAVIER Visit ID: [id number] 41y, M Weight: 81.6 kg Height/Length: 74 in BMI: 23.1 ALLERGIES: Amoxicillin Given 23:08 09/25/2016 Anu Galloway, Medication Administered: DUONEB [NEB TX] (IPRATROPIUM-ALBUTEROL), Dose: 1 unit dose Nebulizer Neb TX. Medication Ordered: DuoNeb Neb Tx 1 unit dose (NOW). Given 00:07 09/26/2016 Anu Galloway, Medication Administered: PREDNISONE [PO], Dose: 60 mg Tablets PO. Medication Ordered: Prednisone PO 60 mg (NOW).
--- NOTE | 2016-09-27 10:54 | ED MED RECONCILIATION SUMMARY ---
Patient: PAWEL XAVIER Medication Reconciliation Report [facility] VisitID: [id number] [place] [address] 41y, M Registration Date/Time: 09/25/2016 Weight: 81.6 kg Height/Length: 74 in. BMI: 23.1 ALLERGIES: Amoxicillin The patient's Home Medications are listed below: THE FOLLOWING MEDICATIONS NEED TO BE RECONCILED: Albuterol Sulfate Inhalation The source(s) of the original Home Medication information: patient The following Medications were given to the patient in the Emergency Department: Duoneb [Neb Tx] Neb TX 1 unit dose, administered: 09/25/2016 11:08:00 PM Prednisone [PO] PO 60 mg, administered: 09/26/2016 12:07:00 AM The following Medications were prescribed to the patient: PHARM MAY SUBSTITUE FOR QVAR ANOTHER DRUG IN SAME CLASS. -- Eric Gunderson MD Albuterol HFA oral inhaler: inhale 4 puffs via spacer every 4 hours as needed for wheezing. Dispense one (1) unit. One refill. -- Eric Gunderson MD Albuterol 0.083% Inhalation Solution: inhale 1 unit dose (3 mL) via nebulizer every 4 hours as needed for wheezing. Dispense fifty (50) units. No refill. -- Eric Gunderson MD QVAR HFA oral inhaler 40 mcg: inhale 1 puff twice daily. Dispense one (1) unit. No refills. Substitution is permissible -- Eric Gunderson MD Prednisone 10 mg tablets: take 4 orally every day for 5 days, then 2 every day for 3 days, then 1 every day for 2 days. Dispense twenty-eight (28). No refills. -- Eric Gunderson MD
--- NOTE | 2016-09-27 10:54 | ED MAR SUMMARY ---
..... Medication Administration Record [facility] [address] [place] [address] Patient: PAWEL XAVIER Visit ID: [id number] 41y, M Weight: 81.6 kg Height/Length: 74 in BMI: 23.1 ALLERGIES: Amoxicillin Given 23:08 09/25/2016 Anu Galloway, Medication Administered: DUONEB [NEB TX] (IPRATROPIUM-ALBUTEROL), Dose: 1 unit dose Nebulizer Neb TX. Medication Ordered: DuoNeb Neb Tx 1 unit dose (NOW). Given 00:07 09/26/2016 Anu Galloway, Medication Administered: PREDNISONE [PO], Dose: 60 mg Tablets PO. Medication Ordered: Prednisone PO 60 mg (NOW).
--- NOTE | 2016-09-27 10:54 | ED DISCHARGE INSTRUCTIONS ---
Patient: PAWEL XAVIER General Instructions [facility] VisitID: [id number] [address] [place] [address] 41y, M Registration Date/Time: 09/25/2016 Asthma with an acute exacerbation. INSTRUCTIONS (SEE YOUR PCP YOU MAY NEED INHALED STEROID). Prescription Medications: Albuterol HFA oral inhaler: inhale 4 puffs via spacer every 4 hours as needed for wheezing. Dispense one (1) unit. One refill. Albuterol 0.083% Inhalation Solution: inhale 1 unit dose (3 mL) via nebulizer every 4 hours as needed for wheezing. Dispense fifty (50) units. No refill. QVAR HFA oral inhaler 40 mcg: inhale 1 puff twice daily. Dispense one (1) unit. No refills. Substitution is permissible Prednisone 10 mg tablets: take 4 orally every day for 5 days, then 2 every day for 3 days, then 1 every day for 2 days. Dispense twenty-eight (28). No refills. PHARM MAY SUBSTITUE FOR QVAR ANOTHER DRUG IN SAME CLASS. Understanding of the discharge instructions verbalized by patient. Follow-up with: [facility], , , [address], [place], [id number] Follow up in five days even if well. Call for an appointment. ADDITIONAL INFORMATION Asthma [Adult] Asthma is a disease where the small air passages within the lung go into spasm and restrict the flow of air. Inflammation and swelling of the airways cause further restriction. During an acute asthma attack, these factors cause difficulty breathing, wheezing, cough and chest tightness. An asthma attack can be triggered by many things. Common triggers include the common cold, bronchitis, pneumonia, irritants such as smoke or pullutants in the air, emotional upset and heavy exercise. Inmany adults with asthma, allergies todust, mold, pollen and animal dander can cause an asthma attack. Skipping doses of daily asthma medicine can also bring on an asthma attack. Asthma can be controlled with proper medicines and decreased exposure to known allergens. Home Care: Take prescribed medicine exactly at the times advised. If you have a hand-held inhaler or aerosol breathing medicine, do not use it more than once every four hours, unless told to do so. (If you need this medicine more than every four hours, you may need to return to the Emergency Room.) If prescribed an antibiotic or prednisone, take all of the medicine even if you are feeling better after a few days. Do not smoke. Avoid being exposed to the smoke of others. Some persons with asthma have worsening of their symptoms when they take aspirin and non-steroidal medicines like ibuprofen (Motrin, Advil) and naproxen (Aleve, Naprosyn). Talk to your doctor if you think this may apply to you. Acetaminophen (Tylenol)should be safe to use. Follow Up with your doctor, or as advised by our staff. Always bring all of your current medicines with you for your doctor to see. If you do not already have one, talk to your doctor about developing a personalized "Asthma Action Plan." [NOTE: A pneumococcal vaccine and yearly flu shot (every fall) are recommended. Ask your doctor about this.] Get Prompt Medical Attention if any of the following occur: Increased wheezing or shortness of breath Need to use your inhalers more often than usual without relief Fever of 100.4F (38C) or higher, or as directed by your healthcare provider Coughing up lots of dark-colored or bloody sputum (mucus) Chest pain with each breath You do not start to improve within 24 hours Call 911 If Any Of The Following Occur : Trouble walking or talking because of shortness of breath If you use a peak flow meter andyou are still in the red zone (less than 50 percent) 15 minutes after using inhaler medication Lips or fingernails turning aguiar or blue Albuterol Sulfate Pressurized inhalation, suspension What is this medicine? ALBUTEROL (al BYOO ter ole) is a bronchodilator. It helps open up the airways in your lungs to make it easier to breathe. This medicine is used to treat and to prevent bronchospasm. How should I use this medicine? This medicine is for inhalation through the mouth. Follow the directions on your prescription label. Take your medicine at regular intervals. Do not use more often than directed. Make sure that you are using your inhaler correctly. Ask you doctor or health care provider if you have any questions. Talk to your outside sales advertising executive regarding the use of this medicine in children. Special care may be needed. What side effects may I notice from receiving this medicine? Side effects that you should report to your doctor or health care worker as soon as possible: allergic reactions like skin rash, itching or hives, swelling of the face, lips, or tongue breathing problems chest pain feeling faint or lightheaded, falls high blood pressure irregular heartbeat fever muscle cramps or weakness pain, tingling, numbness in the hands or feet vomiting Side effects that usually do not require medical attention (report to your doctor or health care worker if they continue or are bothersome): cough difficulty sleeping headache nervousness or trembling stomach upset stuffy or runny nose throat irritation unusual taste What may interact with this medicine? anti-infectives like chloroquine and pentamidine caffeine cisapride diuretics medicines for colds medicines for depression or for emotional or psychotic conditions medicines for weight loss including some herbal products methadone some antibiotics like clarithromycin, erythromycin, levofloxacin, and linezolid some heart medicines steroid hormones like dexamethasone, cortisone, hydrocortisone theophylline thyroid hormones What if I miss a dose? If you miss a dose, use it as soon as you can. If it is almost time for your next dose, use only that dose. Do not use double or extra doses. Where should I keep my medicine? Keep out of the reach of children. Store at room temperature between 15 and 30 degrees C (59 and 86 degrees F). The contents are under pressure and may burst when exposed to heat or flame. Do not freeze. This medicine does not work as well if it is too cold. Throw away any unused medicine after the expiration date. Inhalers need to be thrown away after the labeled number of puffs have been used or by the expiration date; whichever comes first. Ventolin HFA should be thrown away 12 months after removing from foil pouch. Check the instructions that come with your medicine. What should I tell my health care provider before I take this medicine? They need to know if you have any of the following conditions: diabetes heart disease or irregular heartbeat high blood pressure pheochromocytoma seizures thyroid disease an unusual or allergic reaction to albuterol, levalbuterol, sulfites, other medicines, foods, dyes, or preservatives or trying to get breast-feeding What should I watch for while using this medicine? Tell your doctor or health care worker if your symptoms do not improve. Do not use extra albuterol. If your asthma or bronchitis gets worse while you are using this medicine, call your doctor right away. If your mouth gets dry try chewing sugarless gum or sucking hard candy. Drink water as directed. Albuterol Sulfate Nebulizer solution What is this medicine? ALBUTEROL (al BYOO ter ole) is a bronchodilator. It helps to open up the airways in your lungs to make it easier to breathe. This medicine is used to treat and to prevent bronchospasm. How should I use this medicine? This medicine is used in a nebulizer. Nebulizers make a liquid into an aerosol that you breathe in through your mouth or your mouth and nose into your lungs. You will be taught how to use your nebulizer. Follow the directions on your prescription label. Take your medicine at regular intervals. Do not use more often than directed. Talk to your outside sales advertising executive regarding the use of this medicine in children. Special care may be needed. What side effects may I notice from receiving this medicine? Side effects that you should report to your doctor or health care worker as soon as possible: allergic reactions like skin rash, itching or hives, swelling of the face, lips, or tongue breathing problems chest pain feeling faint or lightheaded, falls high blood pressure irregular heartbeat fever muscle cramps or weakness pain, tingling, numbness in the hands or feet vomiting Side effects that usually do not require medical attention (report to your doctor or health care worker if they continue or are bothersome): cough difficulty sleeping headache nervousness, trembling stomach upset stuffy or runny nose throat irritation unusual taste What may interact with this medicine? anti-infectives like chloroquine and pentamidine caffeine cisapride diuretics medicines for colds medicines for depression or emotional or psychotic conditions medicines for weight loss including some herbal products methadone some antibiotics like clarithromycin, erythromycin, levofloxacin, and linezolid some heart medicines steroid hormones like dexamethasone, cortisone, hydrocortisone theophylline thyroid hormones What if I miss a dose? If you miss a dose, use it as soon as you can. If it is almost time for your next dose, use only that dose. Do not use double or extra doses. Where should I keep my medicine? Keep out of the reach of children. Store between 2 and 25 degrees C (36 and 77 degrees F). Do not freeze. Protect from light. Throw away any unused medicine after the expiration date. Most products are kept in the foil package until time of use. Some products can be used up to 1 week after they are removed from the foil pouch. Check the instructions that come with your medicine. What should I tell my health care provider before I take this medicine? They need to know if you have any of the following conditions: diabetes heart disease or irregular heartbeat high blood pressure pheochromocytoma seizures thyroid disease an unusual or allergic reaction to albuterol, levalbuterol, sulfites, other medicines, foods, dyes, or preservatives or trying to get breast-feeding What should I watch for while using this medicine? Tell your doctor or health care worker if your symptoms do not improve. Do not use extra albuterol. Call your doctor right away if your asthma or bronchitis gets worse while you are using this medicine. If your mouth gets dry try chewing sugarless gum or sucking hard candy. Drink water as directed. You have been given the following additional information: Asthma, Acute (Adult) Albuterol Sulfate Pressurized inhalation, suspension Albuterol Sulfate Nebulizer solution (Electronically signed by Eric Gunderson MD 09/27/2016 10:54)
--- NOTE | 2016-09-27 10:54 | ED MED RECONCILIATION SUMMARY ---
Patient: PAWEL XAVIER Medication Reconciliation Report [facility] VisitID: [id number] [place] [address] 41y, M Registration Date/Time: 09/25/2016 Weight: 81.6 kg Height/Length: 74 in. BMI: 23.1 ALLERGIES: Amoxicillin The patient's Home Medications are listed below: THE FOLLOWING MEDICATIONS NEED TO BE RECONCILED: Albuterol Sulfate Inhalation The source(s) of the original Home Medication information: patient The following Medications were given to the patient in the Emergency Department: Duoneb [Neb Tx] Neb TX 1 unit dose, administered: 09/25/2016 11:08:00 PM Prednisone [PO] PO 60 mg, administered: 09/26/2016 12:07:00 AM The following Medications were prescribed to the patient: PHARM MAY SUBSTITUE FOR QVAR ANOTHER DRUG IN SAME CLASS. -- Eric Gunderson MD Albuterol HFA oral inhaler: inhale 4 puffs via spacer every 4 hours as needed for wheezing. Dispense one (1) unit. One refill. -- Eric Gunderson MD Albuterol 0.083% Inhalation Solution: inhale 1 unit dose (3 mL) via nebulizer every 4 hours as needed for wheezing. Dispense fifty (50) units. No refill. -- Eric Gunderson MD QVAR HFA oral inhaler 40 mcg: inhale 1 puff twice daily. Dispense one (1) unit. No refills. Substitution is permissible -- Eric Gunderson MD Prednisone 10 mg tablets: take 4 orally every day for 5 days, then 2 every day for 3 days, then 1 every day for 2 days. Dispense twenty-eight (28). No refills. -- Eric Gunderson MD
--- NOTE | 2016-09-27 10:54 | ED DISCHARGE INSTRUCTIONS ---
Patient: PAWEL XAVIER General Instructions [facility] VisitID: [id number] [address] [place] [address] 41y, M Registration Date/Time: 09/25/2016 Asthma with an acute exacerbation. INSTRUCTIONS (SEE YOUR PCP YOU MAY NEED INHALED STEROID). Prescription Medications: Albuterol HFA oral inhaler: inhale 4 puffs via spacer every 4 hours as needed for wheezing. Dispense one (1) unit. One refill. Albuterol 0.083% Inhalation Solution: inhale 1 unit dose (3 mL) via nebulizer every 4 hours as needed for wheezing. Dispense fifty (50) units. No refill. QVAR HFA oral inhaler 40 mcg: inhale 1 puff twice daily. Dispense one (1) unit. No refills. Substitution is permissible Prednisone 10 mg tablets: take 4 orally every day for 5 days, then 2 every day for 3 days, then 1 every day for 2 days. Dispense twenty-eight (28). No refills. PHARM MAY SUBSTITUE FOR QVAR ANOTHER DRUG IN SAME CLASS. Understanding of the discharge instructions verbalized by patient. Follow-up with: [facility], , , [address], [place], [id number] Follow up in five days even if well. Call for an appointment. ADDITIONAL INFORMATION Asthma [Adult] Asthma is a disease where the small air passages within the lung go into spasm and restrict the flow of air. Inflammation and swelling of the airways cause further restriction. During an acute asthma attack, these factors cause difficulty breathing, wheezing, cough and chest tightness. An asthma attack can be triggered by many things. Common triggers include the common cold, bronchitis, pneumonia, irritants such as smoke or pullutants in the air, emotional upset and heavy exercise. Inmany adults with asthma, allergies todust, mold, pollen and animal dander can cause an asthma attack. Skipping doses of daily asthma medicine can also bring on an asthma attack. Asthma can be controlled with proper medicines and decreased exposure to known allergens. Home Care: Take prescribed medicine exactly at the times advised. If you have a hand-held inhaler or aerosol breathing medicine, do not use it more than once every four hours, unless told to do so. (If you need this medicine more than every four hours, you may need to return to the Emergency Room.) If prescribed an antibiotic or prednisone, take all of the medicine even if you are feeling better after a few days. Do not smoke. Avoid being exposed to the smoke of others. Some persons with asthma have worsening of their symptoms when they take aspirin and non-steroidal medicines like ibuprofen (Motrin, Advil) and naproxen (Aleve, Naprosyn). Talk to your doctor if you think this may apply to you. Acetaminophen (Tylenol)should be safe to use. Follow Up with your doctor, or as advised by our staff. Always bring all of your current medicines with you for your doctor to see. If you do not already have one, talk to your doctor about developing a personalized "Asthma Action Plan." [NOTE: A pneumococcal vaccine and yearly flu shot (every fall) are recommended. Ask your doctor about this.] Get Prompt Medical Attention if any of the following occur: Increased wheezing or shortness of breath Need to use your inhalers more often than usual without relief Fever of 100.4F (38C) or higher, or as directed by your healthcare provider Coughing up lots of dark-colored or bloody sputum (mucus) Chest pain with each breath You do not start to improve within 24 hours Call 911 If Any Of The Following Occur : Trouble walking or talking because of shortness of breath If you use a peak flow meter andyou are still in the red zone (less than 50 percent) 15 minutes after using inhaler medication Lips or fingernails turning aguiar or blue Albuterol Sulfate Pressurized inhalation, suspension What is this medicine? ALBUTEROL (al BYOO ter ole) is a bronchodilator. It helps open up the airways in your lungs to make it easier to breathe. This medicine is used to treat and to prevent bronchospasm. How should I use this medicine? This medicine is for inhalation through the mouth. Follow the directions on your prescription label. Take your medicine at regular intervals. Do not use more often than directed. Make sure that you are using your inhaler correctly. Ask you doctor or health care provider if you have any questions. Talk to your shareholder regarding the use of this medicine in children. Special care may be needed. What side effects may I notice from receiving this medicine? Side effects that you should report to your doctor or health caregiver assisted living as soon as possible: allergic reactions like skin rash, itching or hives, swelling of the face, lips, or tongue breathing problems chest pain feeling faint or lightheaded, falls high blood pressure irregular heartbeat fever muscle cramps or weakness pain, tingling, numbness in the hands or feet vomiting Side effects that usually do not require medical attention (report to your doctor or health caregiver assisted living if they continue or are bothersome): cough difficulty sleeping headache nervousness or trembling stomach upset stuffy or runny nose throat irritation unusual taste What may interact with this medicine? anti-infectives like chloroquine and pentamidine caffeine cisapride diuretics medicines for colds medicines for depression or for emotional or psychotic conditions medicines for weight loss including some herbal products methadone some antibiotics like clarithromycin, erythromycin, levofloxacin, and linezolid some heart medicines steroid hormones like dexamethasone, cortisone, hydrocortisone theophylline thyroid hormones What if I miss a dose? If you miss a dose, use it as soon as you can. If it is almost time for your next dose, use only that dose. Do not use double or extra doses. Where should I keep my medicine? Keep out of the reach of children. Store at room temperature between 15 and 30 degrees C (59 and 86 degrees F). The contents are under pressure and may burst when exposed to heat or flame. Do not freeze. This medicine does not work as well if it is too cold. Throw away any unused medicine after the expiration date. Inhalers need to be thrown away after the labeled number of puffs have been used or by the expiration date; whichever comes first. Ventolin HFA should be thrown away 12 months after removing from foil pouch. Check the instructions that come with your medicine. What should I tell my health care provider before I take this medicine? They need to know if you have any of the following conditions: diabetes heart disease or irregular heartbeat high blood pressure pheochromocytoma seizures thyroid disease an unusual or allergic reaction to albuterol, levalbuterol, sulfites, other medicines, foods, dyes, or preservatives or trying to get breast-feeding What should I watch for while using this medicine? Tell your doctor or health caregiver assisted living if your symptoms do not improve. Do not use extra albuterol. If your asthma or bronchitis gets worse while you are using this medicine, call your doctor right away. If your mouth gets dry try chewing sugarless gum or sucking hard candy. Drink water as directed. Albuterol Sulfate Nebulizer solution What is this medicine? ALBUTEROL (al BYOO ter ole) is a bronchodilator. It helps to open up the airways in your lungs to make it easier to breathe. This medicine is used to treat and to prevent bronchospasm. How should I use this medicine? This medicine is used in a nebulizer. Nebulizers make a liquid into an aerosol that you breathe in through your mouth or your mouth and nose into your lungs. You will be taught how to use your nebulizer. Follow the directions on your prescription label. Take your medicine at regular intervals. Do not use more often than directed. Talk to your shareholder regarding the use of this medicine in children. Special care may be needed. What side effects may I notice from receiving this medicine? Side effects that you should report to your doctor or health caregiver assisted living as soon as possible: allergic reactions like skin rash, itching or hives, swelling of the face, lips, or tongue breathing problems chest pain feeling faint or lightheaded, falls high blood pressure irregular heartbeat fever muscle cramps or weakness pain, tingling, numbness in the hands or feet vomiting Side effects that usually do not require medical attention (report to your doctor or health caregiver assisted living if they continue or are bothersome): cough difficulty sleeping headache nervousness, trembling stomach upset stuffy or runny nose throat irritation unusual taste What may interact with this medicine? anti-infectives like chloroquine and pentamidine caffeine cisapride diuretics medicines for colds medicines for depression or emotional or psychotic conditions medicines for weight loss including some herbal products methadone some antibiotics like clarithromycin, erythromycin, levofloxacin, and linezolid some heart medicines steroid hormones like dexamethasone, cortisone, hydrocortisone theophylline thyroid hormones What if I miss a dose? If you miss a dose, use it as soon as you can. If it is almost time for your next dose, use only that dose. Do not use double or extra doses. Where should I keep my medicine? Keep out of the reach of children. Store between 2 and 25 degrees C (36 and 77 degrees F). Do not freeze. Protect from light. Throw away any unused medicine after the expiration date. Most products are kept in the foil package until time of use. Some products can be used up to 1 week after they are removed from the foil pouch. Check the instructions that come with your medicine. What should I tell my health care provider before I take this medicine? They need to know if you have any of the following conditions: diabetes heart disease or irregular heartbeat high blood pressure pheochromocytoma seizures thyroid disease an unusual or allergic reaction to albuterol, levalbuterol, sulfites, other medicines, foods, dyes, or preservatives or trying to get breast-feeding What should I watch for while using this medicine? Tell your doctor or health caregiver assisted living if your symptoms do not improve. Do not use extra albuterol. Call your doctor right away if your asthma or bronchitis gets worse while you are using this medicine. If your mouth gets dry try chewing sugarless gum or sucking hard candy. Drink water as directed. You have been given the following additional information: Asthma, Acute (Adult) Albuterol Sulfate Pressurized inhalation, suspension Albuterol Sulfate Nebulizer solution (Electronically signed by Eric Gunderson MD 09/27/2016 10:54)
== END 2016-09-26 00:10 | disposition home or self-care (01) ==
LOC: ED SRH 22:45
DX: J45.901 Unspecified asthma with (acute) exacerbation (principal); I10 Essential (primary) hypertension

== ENCOUNTER 2016-10-29 07:08 | Inpatient (IN) | payer OTHER ==
[2016-10-29] VITALS (16 sets, daily range): BP systolic 100–130; BP diastolic 60–87
[~2016-10-29] VITALS: Ht 188 cm; Wt 81.9 kg
--- NOTE | 2016-10-29 08:12 | DIAGNOSTIC IMAGING REPORT ---
PROCEDURE: XR CHEST 1 VIEW INDICATION: SHORTNESS OF BREATH TECHNIQUE: Portable AP view 07:26 a.m. COMPARISON: Chest x-ray 09/03/2016 FINDINGS: Lungs are clear. Artifacts overlie the chest. Heart and mediastinum are normal. Gastric lap band device in the upper abdomen. Thorax is normal. No significant interval change. IMPRESSION: 1. Negative chest.
--- NOTE | 2016-10-29 08:45 | DIAGNOSTIC IMAGING REPORT ---
PROCEDURE: XR CHEST 1 VIEW INDICATION: ASTHMA TECHNIQUE: Portable AP view 08:35 a.m. COMPARISON: Chest x-ray 10/29/2016 at 07:26 a.m. FINDINGS: ET tube positioned above the clavicles, needs to be advanced 2-3 cm. Questionable right apical infiltrate. Heart and mediastinum are normal. Thorax is normal. IMPRESSION: 1. ET tube cephalad to the clavicles, needs to be advanced 2-3 cm. 2. Questionable right apical infiltrate 3. Results discussed with Dr. Goodwin
--- NOTE | 2016-10-29 10:03 | ED CLINICAL REPORT ---
Clinical Report - Physicians/Mid Levels [facility] [address] [place] [address] 10/29/2016 7:09 Patient: PAWEL XAVIER Time Seen: 07:25; initial patient contact. Arrived- By private vehicle. Historian- family. History limited by patient's respiratory distress. Physical Exam limited by patient's respiratory distress. HISTORY OF PRESENT ILLNESS Chief Complaint: COLLAPSED. This occurred 60 minutes [employer]. CPR not in progress on arrival. Did not regain a pulse or begin breathing spontaneously. The patient had preceding symptoms of difficulty breathing. The patient collapsed (Walking in to the ED). Recent medical care: Not recently seen/assessed. REVIEW OF SYSTEMS Unobtainable due to patient's unresponsiveness and respiratory distress. All systems otherwise negative, except as recorded above. PAST HISTORY ( Fever. Lifestyle / Substance Problems. Abscess. Lung Disease. Ureterolithiasis. Substance Abuse. Cellulitis. Infections. Paronychia. Hives. Allergic Reaction. Asthma. Contusion. Crush Injury, Lower Extremity. Hypertension. Bronchitis. Laceration. Narcotic Withdrawal. Nephrolithiasis. Bronchitis [RuleOut]. SURGERIES: Adenoidectomy. Appendectomy. Bariatric Surgery. Fracture Repair. Lithotripsy. Pyloric Stenosis Surgery. Tonsillectomy.). SOCIAL HISTORY Never smoker. History of drug use: heroin, methamphetamines. Recently used drugs yesterday. No alcohol use. ADDITIONAL NOTES The nursing notes have been reviewed with agreement regarding the chief complaint, PMH and patient medications and allergies. PHYSICAL EXAM Vital Signs: 10/29/2016 07:07 HR: 0. RR: 0. FLACC pain scale: 0/10. Have been reviewed as abnormal. Appearance: Unresponsive. Patient in severe distress. No visible trauma. ENT: Airway patent. Neck: Trachea is not deviated. Normal inspection. CVS: No spontaneous pulse. No heart sounds. Respiratory: Ventilated with Ambu bag. Moderately decreased breath sounds diffusely over both lungs. Expiratory severe bilateral wheezes diffusely. Abdomen: Soft. No organomegaly. No mass. Skin: No rash. Moderate pallor. Extremities: No lower extremity edema. Neuro: Unresponsive. LABS, X-RAYS, AND EKG EKG: EKG time: (0851). Tachycardia (ventricular rate 113). Normal P waves. Normal JED. Normal ST and T waves, QT and QTc. Prior EKG unavailable. The study has been interpreted contemporaneously by me. The study has been independently viewed by me. The EKG appears to be a good tracing. Interpretation time: 08. Chest X-ray: No acute disease. Moderate hyperinflation present on the right and left with flattening of the diaphragm. Consistent with COPD. No infiltrate. Views: AP. Technique: good. The X-rays were independently viewed by me and interpreted contemporaneously by me. A comparison with prior films reveals that the findings are unchanged. Chest X-ray #2: ET tube position incorrect: tube-tip location 4 cm above estephanie. Views: AP. Technique: good. The X-rays were independently viewed by me and interpreted contemporaneously by me. Laboratory Tests: UA-Culture if indicated: (ONEYDA: 10/29/2016 07:25) ( [facility] 07[facility]55[facility] Final results Test Result Flag Units (Reference) URINE COLOR YELLOW URINE APPEARANCE CLEAR URINE GLUCOSE NEGATIVE (NEGATIVE) URINE BILIRUBIN NEGATIVE (NEGATIVE) URINE KETONE NEGATIVE (NEGATIVE) URINE SPECIFIC GRAVITY 1.025 (1.010-1.030) URINE PH 6.0 (5.0-8.0) URINE PROTEIN NEGATIVE (NEGATIVE) URINE UROBILINOGEN 0.2 EU/dL (0.2-1.0) URINE NITRITE NEGATIVE (NEGATIVE) URINE BLOOD NEGATIVE (NEGATIVE) URINE LEUK ESTERASE NEGATIVE (NEGATIVE) URINE RBC 1-3 rbc/hpf (0-1) URINE WBC NONE SEEN wbc/hpf (0-1) URINE EPITHELIAL CELLS 0-1 EPI/hpf (0-5) URINE BACTERIA TRACE (<1+) (NONE SEEN) URINE COMMENT CULT NOT INDICATED TRACE AMORPHOUSURINE CULTURES ARE SET-UP BASED ON THE FOLLOWING CRITERIA:POSITIVE NITRITEPOSITIVE LEUKOCYTE ESTERASEGREATER THAN 10 WHITE BLOOD CELLSMODERATE (2+) OR GREATER BACTERIA CBC w Diff: (ONEYDA: 10/29/2016 07:24) ( [facility] [place] 10/29/2016 07:36) Final results Test Result Flag Units (Reference) WHITE BLOOD COUNT 14.1 H K/uL (4.5-11.5) RED BLOOD COUNT 4.81 M/uL (4.50-5.90) HEMOGLOBIN 14.0 gm/dL (13.5-17.5) HEMATOCRIT 43.4 % (41.0-53.0) MEAN CELL VOLUME 90 fL (80-100) MEAN CORPUSCULAR HGB 29 pg (26-34) MEAN CORPUSCULAR HGB CONC 32 g/dL (31-37) RED CELL DISTRIBUTION WIDTH 13.7 % (11.6-14.8) PLATELET COUNT 216 K/uL (150-400) NEUTROPHIL % 41.2 L % (50-75) LYMPH % 42.3 H % (25-40) MONO % 7.4 % (3-14) EOSINOPHIL % 8.3 H % (0-4) BASOPHIL % 0.8 % (0-2) [id number]: (ONEYDA: 10/29/2016 07:24) ( MsgRcvd 10/29/2016 07:42) Final results Test Result Flag Units (Reference) D-DIMER QUANTITATIVE 1.20 H ug/mLFEU (0.27-0.52) The primary value of this quantitative assay relates toits negative predictive value (i.e. exclusion) of pulmonaryembolism/deep vein thrombosis/DIC.Elevated levels of d-dimer may also occur with:, age, cancer, inflammation, liver disease,post-op, infection, hematoma, coronary disease, peripheralarteriopathy, bleeding disorders and thrombolytic treatment.Results should be correlated with other clinical andradiological data.Testing Methodology: Latex Immunoassay Urine Drug Screen: (ONEYDA: 10/29/2016 07:25) ( [facility] [place] 10/29/2016 08:04) Final results Test Result Flag Units (Reference) AMPHETAMINE/METHAMPHETAMINE POSITIVE H (NEGATIVE) BARBITURATE NEGATIVE (NEGATIVE) BENZODIAZEPINE NEGATIVE (NEGATIVE) CANNABINOID NEGATIVE (NEGATIVE) COCAINE NEGATIVE (NEGATIVE) ECSTASY NEGATIVE (NEGATIVE) METHADONE NEGATIVE (NEGATIVE) OPIATE POSITIVE H (NEGATIVE) The urine drug screen is a qualitative screening test fordrug overdose and abuse. All screen results should beconsidered as presumptive.Drugs screened for are as follows:BenzodiazepinesCocaineAmphetamines/MetamphetaminesTHC (Tetrahydrocannabinol)OpiatesBarbituratesEcstasyMethadonePositive results are unconfirmed. For confirmation, notifythe lab for the specimen to be sent to the reference lab.All confirmations must be performed by a differentmethodology.The ingestion of natural herbal and plant productscontaining Ephedra/Ephedra metabolites can produce in urineone or more substances capable of cross reacting withamphetamine/methamphetamine immunoassays. These testsprovide a preliminary result only. A more specificalternative chemical method must be used to obtain aconfirmed analytical result. CHEM 13 PANEL: (ONEYDA: 10/29/2016 07:24) ( MsgRcvd 10/29/2016 07:50) Final results Test Result Flag Units (Reference) GLUCOSE 146 H mg/dL (70-110) BUN 15 mg/dL (7-18) CREATININE 1.1 mg/dL (0.6-1.3) Estimated GFR >60 mL/min Estimated GFR- >60 mL/min Note: Persistent reduction over 3 months in eGFR<60 mL/min/1.73 m2 defines CKD. Patients with eGFR values>=60 mL/min/1.73 m2 may also have CKD if evidence ofpersistent proteinuria. Additional information may be foundat www.kidney.org. SODIUM 149 H mmol/L (136-145) POTASSIUM 3.0 L mmol/L (3.5-5.1) CHLORIDE 112 H mmol/L (98-107) CARBON DIOXIDE 20 L mmol/L (21-32) CALCIUM 7.1 L mg/dL (8.5-10.1) TOTAL PROTEIN 6.0 L g/dL (6.4-8.2) ALBUMIN 2.9 L g/dL (3.3-5.0) BILIRUBIN, TOTAL 0.4 mg/dL (0.0-1.0) ALKALINE PHOSPHATASE 70 U/L (46-116) AST (SGOT) 17 U/L (15-37) ALT (SGPT) 28 U/L (12-78) MAGNESIUM 1.9 mg/dL (1.8-2.4) CPK 102 U/L (24-260) TROPONIN I <0.05 ng/mL (0.00-1.5) TROPONIN REFERENCE RANGE:<0.1 NEGATIVE0.1-1.5 INDETERMINANT>1.5 POSITIVE . PROGRESS AND PROCEDURES Intubation: Per protocol, time-out completed immediately before the procedure. ED physician at bedside. Intubated with 7.5 cuffed endotracheal tube. Head placed in sniffing position. Preoxygenated. Hyperventilated. Suction was available. Size 3 Tiffani blade used. Intubated via orotracheal route. Administered induction agent- etomidate and neuromuscular blocking agent- succinylcholine. No complications. Placement confirmed by direct visualization, equal breath sounds and rise and fall of chest wall, rising O2 saturations and ET tube CO2 detection device. Tube secured and connected to ventilator. Given propofol post-intubation. A chest x-ray was obtained: showing poor tube position. Technique: direct visualization. Estimated blood loss: 0. Procedure successful; one attempt. ( Pre-medicated with Rocuronium). Course of Care: 0700. Called to room due to patient collapsing and becoming apneic and w/out a pulse. An attempt at intubation was made, 1st attempt unsuccessful and 2nd attempt was initially successful, but tub was dislodged. At this point pt had a pulse and spontaneous respirations and decided to use BiPap w/ Albuterol. 0800. Pt restless and not able to tolerate BiPap and still having significant dyspnea after Vistaril. Pt rapidly decompensating. At this point we decided it was in his best interest to electively intubate. 20:40. Lungs now clear w/out wheezing. Evaluation after intubation. 0700. Physical exam findings are improved. Pulseless electrical activity. No pulse and spontaneous respirations. Airway was managed with positioning and oropharyngeal airway. The patient was ventilated with bag-valve mask. Compressions performed with good massage pulse. Albuterol given. Atrovent given. Methylprednisolone given (125 IV). One dose of atropine given (0.5). One dose of epinephrine given (1 mg). Critical care performed (105 minutes). Time includes: direct patient care, patient reassessment, coordination of patient care, interpretation of data (laboratory data, pulse oximetry, arterial blood gases and chest xrays), review of patient's medical records, medical consultation and documentation of patient care. Procedures excluded from critical care time: intubation- see progress notes. The patient required critical care due to the acute impairment of vital organ systems (cardiovascular and respiratory) and a high probability of life threatening deterioration. Numerous emergent interventions were required to prevent life threatening deterioration. Discussed case with hospitalist, (call returned 11:01 Dr. Guadarrama, will take pt and place in ICU.). Reviewed test results and need for additional work-up. Agreed upon treatment plan and decision to admit. Health care provider will see patient in ED. Disposition: Admitted to the Critical Care Unit. Condition: stable. Admit decision based on need for telemetry, IV medications, intensive care and stabilization of condition. CLINICAL IMPRESSION Respiratory arrest. Cardiac arrest secondary to hypoxia and respiratory arrest. Status asthmaticus with hypoxemia and acute respiratory failure. Underlying asthma is persistent, moderate. (Electronically signed by Leandro Goodwin Dr. 10/30/2016 20:40)
--- NOTE | 2016-10-29 10:04 | ED NURSING NOTES ---
Clinical Report - Nurses [facility] [address] [place] [address] 10/29/2016 7:09 Patient: PAWEL XAVIER TRIAGE Triage time 0706. Chief Complaint: DRUG OVERDOSE (Pt got out of PV, went to his knees in a tripod position, opened doors for pt, then he got up, walked into the ambulance door, after being dropped off in a PV, stated "I am having an asthma attack",). --07:30 Shirley Braxton R.N. Acuity: LEVEL 1. Alert. --07:43 Shirley Braxton R.N. 07:07. ( Within 2 minutes of arrival, patient had a GCS of 3 (no motor or verbal response, no eye opening.)). LAUREN COMA SCORE: Lauren Coma Scale: 14- eyes open spontaneously (4); best verbal response- disoriented (4); best motor response- obeys commands (6). --12:48 Lydia Bob R.N. 07:07 10/29/16. BP: deferred. HR: 0. RR: 0. O2 saturation: deferred. Temp: deferred. FLACC pain scale: 0/10. Face: 0 - no particular expression or smile; legs: 0 - normal position or relaxed; activity: 0 - lying quietly, normal position, moves easily; cry: 0 - no cry (awake or asleep); consolability: 0 - content, relaxed. Additional comments: CPR in progress. . --12:48 Lydia Bob R.N. <<STRICKEN ENTRY-- 12:41 10/29/16. BP: deferred. HR: 0. RR: 0. O2 saturation: deferred. Temp: deferred. FLACC pain scale: 0/10. Face: 0 - no particular expression or smile; legs: 0 - normal position or relaxed; activity: 0 - lying quietly, normal position, moves easily; cry: 0 - no cry (awake or asleep); consolability: 0 - content, relaxed. Additional comments: CPR in progress. . --12:48 Lydia Bob R.N. --END STRIKE>> Correction. --16:53 Lydia Bob R.N. Weight: 77.5 kg measured. --07:27 Shirley Braxton R.N.. Height/Length: 72 inches. BMI: 23.2. --07:27 Lydia Bob R.N. Medications Albuterol Sulfate Inhalation. --07:40 Shirley Braxton R.N. Allergies Amoxicillin. --07:40 Shirley Braxton R.N. History Arrived by private vehicle. Historian: family. Accompanied by friend. This occurred just prior to arrival and today. Treatment WIG STYLIST: (Apparently pt, according to girlfriend, had been smoking meth and or heroin WIG STYLIST). --07:30 Shirley Braxton R.N. ( CODE BLUE CALLED WITHIN 1 MINUTE OF PT ARRIVAL TO ED, PT INITIALLY CONSCIOUS, THEN WASN'T MOVING AIR WHEN TRYING TO TALK AT 0705). PAST MEDICAL HX: Immunizations: up-to-date. SOCIAL HX: Never smoker. History of drug use: heroin, methamphetamines. No alcohol use. FALL RISK ASSESSMENT: Fall risk assessment completed. No fall risk identified. --07:43 Shirley Braxton R.N. PROBLEMS: Fever. Lifestyle / Substance Problems. Abscess. Lung Disease. Ureterolithiasis. Substance Abuse. Cellulitis. Infections. Paronychia. Hives. Allergic Reaction. Asthma. Contusion. Crush Injury, Lower Extremity. Hypertension. Bronchitis. Laceration. Narcotic Withdrawal. Nephrolithiasis. --08:01 Shirley Braxton R.N. Bronchitis [RuleOut]. --08:01 Shirley Braxton R.N. ADDITIONAL SURGERIES: Adenoidectomy. Appendectomy. Bariatric Surgery. Fracture Repair. Lithotripsy. Pyloric Stenosis Surgery. Tonsillectomy. --08:01 Shirley Braxton R.N. Interventions ID band on patient. To room. --07:43 Shirley Braxton R.N. PHYSICAL ASSESSMENT 07:07. GENERAL / NEURO / PSYCH: Unresponsive (AND APNEIC, CPR INITIATED). --07:47 Shirley Braxton R.N. NURSING PROGRESS NOTES EKG time: (08). EKG was ordered, performed by a tech and shown to the ED physician. --09:03 Chian aDy 07:08 10/29/2016 Site #1 started via IV in the left antecubital space with an 18g angiocath; one attempt. Blood drawn: rainbow set. Labeled in the presence of the patient and sent to the lab. Saline lock flushed with 3 mL saline. --09:25 Lydia Bob R.N. 07:09 10/29/2016 Site #2 started via IV in the right forearm with an 18g angiocath; one attempt. Saline lock flushed with 5 mL saline. --11:34 Lydia Bob R.N. 07:11 10/29/2016 Epinephrine (EPINEPHrine HCl) IVP 1 mg given over 5 second(s) via site #2. Confirmed 5 rights. IV patency established. IV site checked: no pain, redness, or swelling. IV flushed thoroughly pre- and post-medication administration. IVP given by RN. --11:44 Lydia Bob R.N. 07:14 10/29/2016 Atropine IVP 1 mg given over 5 second(s) via site #2. Confirmed 5 rights. IV patency established. IV site checked: no pain, redness, or swelling. IV flushed thoroughly pre- and post-medication administration. IVP given by RN. --11:45 Lydia Bob R.N. 07:24 10/29/2016 Albuterol Neb TX Nebulizer 5 unit dose given. Given by the respiratory therapist. Confirmed 5 rights. --12:53 Lydia Bob R.N. 07:36 10/29/2016 Magnesium Sulfate (Magnesium Sulfate in D5W) IVP 2 gm given over 30 minute(s) via site #1. Allergies verified and confirmed 5 rights. IV patency established. IV site checked: no pain, redness, or swelling. IV flushed thoroughly pre- and post-medication administration. IVP given by RN. --09:26 Lydia Bob R.N. 07:50 10/29/2016 Vistaril (HydrOXYzine HCl) IM 50 mg given. Given in the left deltoid. Confirmed 5 rights and sedative warning given to the patient. --09:29 Lydia Bob R.N. 08:23 10/29/2016 Started 1000 mg of Propofol Drip IV in bag #1 100 mL; at 20 mcg/kg/min over 4 hour(s) via site #1 via IV pump. Allergies verified and confirmed 5 rights. IV patency established. IV site checked: no pain, redness, or swelling. IV flushed thoroughly pre- and post-medication administration. --10:52 Lydia Bob R.N. 08:30 10/29/2016 Started 1000 mg of Propofol Drip IV in bag #1 100 mL; at 0.1 mg/kg/min over 1 hour(s) via site #1 via IV pump. Confirmed 5 rights. IV patency established. IV site checked: no pain, redness, or swelling. IV flushed thoroughly pre- and post-medication administration. --11:52 Lydia Bob R.N. 09:16 10/29/2016 Started 4 mg of Versed (Midazolam HCl) IVPB in bag #1 50 mL; at 8 mL/hr over 6 hour(s) via site #2 via IV pump. Allergies verified and confirmed 5 rights. IV patency established. IV site checked: no pain, redness, or swelling. IV flushed thoroughly pre- and post-medication administration. --11:42 Lydia Bob R.N. 09:20 10/29/2016 Propofol Drip IV Discontinued: bag #1 STOPPED. Total amount infused: 25 mL. IV patency established. IV site checked: no pain, redness, or swelling. IV flushed thoroughly. --12:50 Lydia Bob R.N. 09:49 10/29/2016 Started 20 meq of Potassium Chloride (Potassium Chloride) IVPB in bag #1 100 mL; at 50 mL/hr over 2 hour(s) via site #1 via IV pump. Confirmed 5 rights. IV patency established. IV site checked: no pain, redness, or swelling. IV flushed thoroughly pre- and post-medication administration. --09:52 Lydia Bob R.N. 12:30 10/29/2016 Versed IVPB Discontinued: bag #1 infused upon admission. Total amount infused: 50 mL. IV patency established. IV site checked: no pain, redness, or swelling. IV flushed thoroughly. --12:48 Lydia Bob R.N. 12:30 10/29/2016 Potassium Chloride IVPB Discontinued: bag #1 infused. Total amount infused: 100 mL. IV patency established. IV site checked: no pain, redness, or swelling. IV flushed thoroughly. --12:51 Lydia Bob R.N. 07:14 10/29/16. HR: 144. --13:15 Lydia Bob R.N. 07:17 10/29/16. BP: 130/81. HR: 140. O2 saturation: 78%. --13:20 Ldyia Bob R.N. ( ED physician attempted intubation at 07:16. Intubation unsuccessful due to patient's agitation.). --13:20 Lydia Bob R.N. 07:20 10/29/16. BP: 167/90. HR: 135. RR: 16 (labored). ED physician notified. O2 saturation: 95% on non-rebreather. --13:24 Lydia Bob R.N. 07:23 10/29/16. BP: 176/100. HR: 136. RR: 20. O2 saturation: 100% on non-rebreather. --13:25 Lydia Bob R.N. <<STRICKEN ENTRY-- 07:25 10/29/16. HR: 134. RR: 22. O2 saturation: 99% on face mask. --13:29 Lydia Bob R.N. --END STRIKE>> Correction. --13:34 Lydia Bob R.N. 07:25 10/29/16. HR: 134. RR: 22. O2 saturation: 99% on face mask. O2 started via face mask. --13:29 Lydia Bob R.N. 07:13. 14 fr noel catheter placed. Reason for indwelling catheter: critical need to monitor intake and output and requires prolonged immobilization. During procedure hand hygiene observed and sterile equipment and aseptic technique used. Return of 900 mL yellow-colored clear urine; odor is normal; attached to bedside drainage bag positioned below the bladder and secured with tape. He tolerated procedure well. --13:32 Lydia Bob R.N. 07:21. Oxygen administered by nonrebreather mask at 100%. --13:24 [facility].N. [facility]. Oxygen administered by face mask at 9 liters (Patient not tolerating non rebreather mask. Patient repeatedly pulls NRB mask off of face. Face mask placed. Respirations remain irregular and labored.). --13:29 Lydia Bob R.N. --END STRIKE>> Correction --13:34 Lydia Bob R.N. 07:24. ( Face mask placed at 9L due to improved patient condition with NRB mask.). --13:36 Lydia Bob R.N. 07:25. Care transferred and report given (TO VIGNESH FREEMAN). --07:51 Shirley Braxton R.N. 07:35 10/29/16. BP: 180/100. HR: 128. RR: 28. O2 saturation: 99%. --13:51 Lydia Bob R.N. ( Radiology at bedside at 07:30. BiPap on at 07:38.). --13:51 Lydia Bob R.N. [facility]-- 13:51 10/29/16. BP: 174/97. HR: 124. RR: 24. O2 saturation: 100%. --13:52 Lydia Bob R.N. --END STRIKE>> Correction. --13:53 Lydia Bob R.N. 07:35 10/29/16. BP: 180/100. HR: 124. RR: 24. O2 saturation: 100%. --13:54 Lydia Bob R.N. 07:40 10/29/16. BP: 174/97. HR: 124. RR: 24. O2 saturation: 100%. --13:59 Lydia Bob R.N. 07:58. ( 07:58 - Patient is sitting up in tripod position with labored breathing. GCS 15. Patient is not tolerating Bipap. Patient states, "I can't breathe" and repeatedly pulls off the Bipap mask. Face mask placed at 9L. Patient reassured.). --14:11 Lydia Bob R.N. <<STRICKEN ENTRY-- 08:20. INTUBATION: Intubation performed by ED physician. Assisted by two nurses and respiratory therapist. Preparation: pulse oximeter and squad boss applied, oxygen administration, IV established, intubation tray at bedside and pre-oxygenated. Procedure: 7.5 fr cuffed ETT via oral route. Proper airway placement confirmed by equal rise and fall of chest, epigastric auscultation, rising O2 sats, CO2 detector. Post-procedure: he was stable, tube secured, suctioning performed, connected to ventilator and bagged w/ BVM. CXR interpreted per physician. (tube secured at 26cm). Estimated blood loss: 0. Total time of assist / procedure: 15 minutes. --14:14 Lydia Bob R.N. --END STRIKE>> Correction --14:16 Lydia Bob R.N. 08:23 10/29/16. BP: 141/92. HR: 116. RR: 23. O2 saturation: 100%. --14:15 Lydia Bob R.N. 08:24. INTUBATION: Intubation performed by ED physician. Assisted by two nurses and respiratory therapist. Preparation: pulse oximeter, squad boss and NIBP monitor applied, oxygen administration, BVM, suction and intubation tray at bedside, IV established and pre-oxygenated. Procedure: 7.5 fr ETT via oral route. Post-procedure. CXR interpreted per physician. (tube secured at 26cm). Estimated blood loss: 0. Total time of assist / procedure: 15 minutes. Sling applied. --14:17 Lydia Bob R.N. 08:28. ( Patient appears restless and agitated. Dr. Goodwin notified.). --14:19 Lydia Bob R.N. 08:39 10/29/16. HR: 111. RR: 30. O2 saturation: 90%. End tidal CO2: 44 mmHg. --14:20 Lydia Bob R.N. 08:44 10/29/16. BP: 125/77. HR: 115. RR: 19. O2 saturation: 91%. End tidal CO2: 39 mmHg. --14:21 Lydia oBb R.N. 08:56 10/29/16. BP: 75/55. HR: 118. RR: 30. O2 saturation: 98%. End tidal CO2: 26 mmHg. --14:22 Lydia Bob R.N. 09:10 10/29/16. BP: 88/64. HR: 113. RR: 27. O2 saturation: 100%. End tidal CO2: 39 mmHg. FLACC pain scale: 0/10. Face: 0 - no particular expression or smile; legs: 0 - normal position or relaxed; activity: 0 - lying quietly, normal position, moves easily; cry: 0 - no cry (awake or asleep); consolability: 0 - content, relaxed. --15:56 Lydia Bob R.N. 09:20 10/29/16. BP: 74/53. HR: 114. RR: 30. O2 saturation: 100%. FLACC pain scale: 0/10. --15:58 Lydia Bob R.N. 09:37 10/29/16. BP: 92/67. HR: 111. RR: 30. O2 saturation: 100%. FLACC pain scale: 0/10. --16:09 Lydia Bob R.N. 09:49 10/29/16. BP: 105/70. HR: 104. RR: 30. O2 saturation: 100%. End tidal CO2: 29 mmHg. Pain level now: 0/10. --16:11 Lydia Bob R.N. 09:54. Patient transported to CT by stretcher with O2, monitor, nurse and tech. --16:12 Lydia Bob R.N. <<STRICKEN ENTRY-- 09:54. Patient returned from CT by stretcher with O2, monitor, nurse and tech. --16:13 Lydia Bob R.N. --END STRIKE>> Correction --16:13 Lydia Bob R.N. 10:18. Patient returned from CT by stretcher with O2, monitor, nurse and tech. --16:14 Lydia Bob R.NElisabeth 10:24 10/29/16. BP: 103/53. HR: 104. RR: 29. O2 saturation: 96%. Temp: 97.6 F. Pain level now: 0/10. --16:15 Lydia Bob R.NElisabeth 07:55 10/29/16. BP: 141/92. HR: 118. RR: 26. O2 saturation: 94%. --16:47 Lydia Bob R.NElisabeth 08:10 10/29/16. BP: 142/100. HR: 117. RR: 23. O2 saturation: 100%. --16:48 Lydia Bob R.NElisabeth 09:25 10/29/16. BP: 96/68. HR: 111. RR: 30. O2 saturation: 100%. --16:49 Lydia Bob R.N. <<[facility] ENTRY-- 16:49 10/29/16. BP: 96/68. HR: 111. RR: 30. O2 saturation: 100%. --16:49 Lydia Bob R.N. --END STRIKE>> Correction. --16:52 Lydia Bob R.N. <<[facility] ENTRY-- 18:17 10/29/16. BP: 97/51. HR: 106. RR: 29. O2 saturation: 100%. Pain level now: 0/10. --18:22 Lydia Bob R.N. --END STRIKE>> Correction. --18:22 Lydia Bob R.NElisabeth 10:40 10/29/16. BP: 97/51. HR: 106. RR: 29. O2 saturation: 100%. Pain level now: 0/10. --18:23 Lydia Bob R.NElisabeth 10:55 10/29/16. BP: 91/50. HR: 107. RR: 34. O2 saturation: 98%. --18:24 Lydia Bob RElisabethNElisabeth 11:10 10/29/16. BP: 89/60. HR: 106. RR: 25. O2 saturation: 96%. --18:25 Lydia Bob R.N. 11:25 10/29/16. BP: 95/56. HR: 105. RR: 28. O2 saturation: 95%. --18:25 Lydia Bob R.N. 11:40 10/29/16. BP: 107/66. HR: 103. RR: 24. O2 saturation: 96%. Pain level now: 0/10. --18:26 Lydia Bob R.N. 11:45 10/29/16. BP: 108/62. HR: 103. RR: 26. O2 saturation: 97%. Pain level now: 0/10. --18:27 Lydia Bob R.N. 10:22. ( Patient's girlfriend at bedside.). --18:36 Lydia Bob R.N. Suctioning performed (Patient's ET tube was suctioned twice for 5 seconds at 09:50). 16 fr NG tube inserted in left nostril with no difficulty. Placement confirmed by auscultation and return of gastric contents. Return: brown fluid. Attached to low and intermittent suction. Patient tolerated procedure well. (NG tube placed at 11:47.). --18:40 Lydia Bob R.N. 07:10 10/29/2016 Started bag #1 1000 mL IV Fluids IV NS (Saline); bolus of 1000 mL wide open via site #1. Allergies verified and confirmed 5 rights. IV patency established site checked: no pain, redness, or swelling flushed thoroughly pre- and post-medication administration. Completed per protocol. --18:49 Lydia Bob R.N. 07:10 10/29/2016 Started bag #1 1000 mL IV Fluids IV NS (Saline); bolus of 1000 mL wide open via site #2. Confirmed 5 rights. IV patency established. IV site checked: no pain, redness, or swelling. IV flushed thoroughly pre- and post-medication administration. Completed per protocol. --08:00 Lydia Bob R.N. <<STRICKEN ENTRY-- 08:10 10/29/2016 IV Fluids IV NS Discontinued: bag #1 infused. Total amount infused: 1000 mL. IV patency established. IV site checked: no pain, redness, or swelling. IV flushed thoroughly. --19:06 Lydia Bob R.N. --END STRIKE>> Correction. --11:08 Lydia Bob R.N. 08:10 10/29/2016 IV Fluids IV NS Bag Change: bag #1 completed. Total amount infused: 1000. STARTED bag #2 (1000 mL) at 1000 mL/hr via IV pump. Confirmed 5 rights. IV patency established. IV site checked: no pain, redness, or swelling. IV flushed thoroughly. --11:09 Lydia Bob R.N. 08:10 10/29/2016 IV Fluids IV NS Bag Change: bag #1 completed. Total amount infused: 1000. STARTED bag #2 (1000 mL) at 250 mL/hr via IV pump. Confirmed 5 rights. IV patency established. IV site checked: no pain, redness, or swelling. IV flushed thoroughly. --11:13 Lydia Bob R.N. 08:36 10/29/2016 Fentanyl IVP 100 mcg given over 1 minute(s) via site #2. Confirmed 5 rights and sedative warning given to the patient. IV patency established. IV site checked: no pain, redness, or swelling. IV flushed thoroughly pre- and post-medication administration. IVP given by RN. --07:54 Lydia Bob R.N. 08:40 10/29/2016 ALBUTEROL NEB W ATROVENT Neb TX Nebulizer 1 unit dose given. Given by the respiratory therapist. Confirmed 5 rights. --18:41 Lydia Bob R.N. <<[facility]-- 09:10 10/29/2016 IV Fluids IV NS Discontinued: bag #1 infused. Total amount infused: 1000 mL. IV patency established. IV site checked: no pain, redness, or swelling. IV flushed thoroughly. --11:08 Lydia Bob R.N. --END STRIKE>> Correction. --11:09 Lydia Bob R.N. 09:10 10/29/2016 IV Fluids IV NS Discontinued: bag #2 completed. Total amount infused: 1000 mL. IV patency established. IV site checked: no pain, redness, or swelling. IV flushed thoroughly. --11:09 Lydia Bob R.N. late entry - 11:45 10/29/16. 14 fr NG tube inserted with no difficulty. Placement confirmed by auscultation. Return: brown fluid. Attached to low and intermittent suction. Patient tolerated procedure well. --11:02 Lydia Bob R.N. 11:50 10/29/2016 IV Fluids IV NS Bag Change: bag #2. Total amount infused: 1000. STARTED bag #3 (1000 mL) at 250 mL/hr via IV pump. Confirmed 5 rights. IV patency established. IV site checked: no pain, redness, or swelling. IV flushed thoroughly. --11:13 Lydia Bob R.N. 12:00 10/29/2016 IV Fluids IV NS Continued: upon admission at the rate of 1000 mL/hr bag #3. IV patency established. IV site checked: no pain, redness, or swelling. IV flushed thoroughly. --11:16 Lydia Bob R.N. <<STRICKEN ENTRY-- 08:10 10/30/2016 IV Fluids IV NS Bag Change: bag #1 completed. Total amount infused: 1000. STARTED bag #2 (1000 mL) at 250 mL/hr via IV pump. Confirmed 5 rights. IV patency established. IV site checked: no pain, redness, or swelling. IV flushed thoroughly. --11:11 Lydia Bob R.N. --END STRIKE>> Correction. --11:13 Lydia Bob R.N. ( Correction for med administration - Propofol was administered at 20mcg/kg/min from 08:23-09:20. Titrated between 20mcg/kg/min and 50mcg/kg/min for effect. No other propofol was given.). --13:50 Lydia Bob R.N. CPR Flowsheet late entry - 07:14. CPR started (07:07). Code team, ED physician, primary nurse, secondary nurse, nurse medical office assistant, astro technician, respiratory therapist, slab lifting supervisor and pharmacist notified about CPR. ED physician arrived in room (Dr Goodwin). Code lean leader arrived in room (MIGUEL Watson). Primary nurse arrived in room (MIGUEL Freeman, Jose, RN). Secondary nurse arrived in room (Cachorro RN). Recorder arrived in room (Antwon RN, Shirley RN). ED microbiology quality control technician arrived in room ([place]). Respiratory therapist arrived in room. refrigerating technician arrived in room. Nursing marina sales and service supervisor arrived in room (Stanley RN). Pharmacist arrived in room. Arrest event history: witnessed arrest in ED and out of the hospital- no treatment had been provided. Presenting rhythm is pulseless electrical activity. Oral intubation performed by the ED physician with a 7.5 cuffed endotracheal tube. Tube secured with an ETT kaur. Placement verified by equal bilateral chest rise and fall and rising oxygen saturation. Endotracheal tube placement checked. Endotracheal tube secured. No spontaneous respirations. Compressions performed with good pulse. Rhythm is PEA. EPINEPHRINE 1 mg IVP. ATROPINE 1 mg IVP. MAG SULFATE 2 gm IVP and IV drip CPR stopped at 07:14. --13:14 Lydia Bob R.N. pulse check at 07:12. No pulse noted. CPR resumed. Pulse noted at 07:14 when CPR was stopped. --13:16 Lydia Bob R.N. --16:38 Lydia Bob R.N. DISPOSITION / DISCHARGE 12:03 10/29/16. Report was given to a nurse via a phone call. Report included patient's care and treatment and medications given to the patient in the ED. All questions were answered. Report was acknowledged and care was transferred. --12:03 Lydia Bob R.N. 12:05. Admitted to the Critical Care Unit (12:05). Transported via stretcher by nurse, respiratory therapist and transport team with monitor, defibrillator, IV, O2 and emergency medications. --18:29 Lydia Bob R.N. 11:45 10/29/16. BP: 108/62. HR: 103. RR: 26. O2 saturation: 97%. Pain level now: 0/10. --18:29 Lydia Bob R.N. Locked/Released at 10/30/2016 13:52 by Lydia Bob R.N.
--- NOTE | 2016-10-29 10:04 | ED ORDER SUMMARY ---
..... Patient: PAWEL XAVIER OrderSheet [facility] VisitID: [id number] [place] [address] 41y, M Registration Date/Time: 10/29/2016 ORDER SHEET Weight: 77.5 kg (measured) Allergies: Amoxicillin GENERAL ORDERS: Chest 1V Urgent (07:21 10/29/2016 TBergley verbal order read back to Charli Chaney) (Ack 7:28 TBergley) (8:24 TBergley) ABG (G) Urgent (07:10/29/2016 Charli Chaney) (Ack 7:28 TBergley) (8:26 TBergley) UA-Culture if indicated Urgent (07:10/29/2016 Charli Chaney) (Ack 7:28 TBergley) (8:26 TBergley) Cardiac Panel Stat (07:10/29/2016 Charli Chaney) (Ack 7:28 TBergley) (8:26 TBergley) D-Dimer Urgent (07:10/29/2016 Charli Chaney) (Ack 7:28 TBergley) (8:26 TBergley) Urine Drug Screen Urgent (07:10/29/2016 Charli Chaney) (Ack 7:28 TBergley) (8:26 TBergley) Chest 1V Urgent (08:24 10/29/2016 TBergley verbal order read back to Charli Chaney) (8:33 TBergley) ABG (G) Urgent (08:42 10/29/2016 Charli Chaney) (Ack 8:43 TBergley) (8:51 TBergley) EKG - ER Stat (08:42 10/29/2016 Charli Chaney) (Ack 8:43 TBergley) (8:50 TBergley) CTA Thorax w Cont (No) (31/07.1) Urgent (09:21 10/29/2016 Charli Chaney) (Ack 9:31 TBergley) (10:40 RMarsden R.N.) Blood Culture (No) (N/A) Urgent (09:23 10/29/2016 Charli Chaney) (Ack 9:31 TBergley) (10:40 RMarsden R.N.) Lactic Acid for Sepsis Protocol Urgent (09:23 10/29/2016 Charli Chaney) (Ack 9:31 TBergley) (10:40 RMarsden R.N.) PCT (Procalcitonin) Urgent (09:10/29/2016 Charli Chaney) (Ack 9:31 TBergley) (10:40 RMarsden R.N.) ABG (G) Urgent (11:09 10/29/2016 Charli Chaney) (Ack 11:11 TBergley) (11:45 RMarsden R.N.) MEDICATION ORDERS: Vistaril IM 50 mg (NOW, Do not administer intravenously) (07:48 10/29/2016 Charli Chaney) (Ack 9:22 RMarsden R.N.) (9:29 RMarsden R.N.) Albuterol Neb Tx 5 unit doses (NOW) (08:50 10/29/2016 Charli Chaney) (Ack 9:22 RMarsden R.N.) (12:53 RMarsden R.N.) Albuterol Neb w Atrovent 1 unit dose (NOW) (08:50 10/29/2016 Charli Chaney) (Ack 9:22 RMarsden R.N.) (18:41 RMarsden R.N.) IV FLUIDS: Magnesium Sulfate IV 2 gm/50mL (HIGH ALERT MEDICATION, NOW) (07:28 10/29/2016 Charli Chaney) (Ack 9:22 RMarsden R.N.) (9:26 RMarsden R.N.) Potassium Chloride IV 20 meq/100mL (HIGH ALERT MEDICATION, NOW, Run no faster than 10 mEq/hr) (07:53 10/29/2016 Charli Chaney) (Ack 9:22 RMarsden R.N.) (9:52 RMarsden R.N.) Propofol Drip IV : initial bolus 20 mg (TITRATE); Urgent (09:31 10/29/2016 RMarsden R.N. verbal order read back to Charli Chaney) (Ack 9:38 RMarsden R.N.) (10:52 RMarsden R.N.) (Cancelled: Wrong Order11:02 RMarsden R.N.) Versed IV 4 mg IV drip/hour. Titrate to effect. (HIGH ALERT MEDICATION, NOW) (09:35 10/29/2016 Charli Chaney) (Ack 10:40 RMarsden R.N.) (11:42 RMarsden R.N.) Epinephrine IV 1 mg (HIGH ALERT MEDICATION, NOW) (10:39 10/29/2016 Charli Chaney) (Ack 10:40 RMarsden R.N.) (11:44 RMarsden R.N.) Atropine IV 1 mg (HIGH ALERT MEDICATION, NOW) (10:40 10/29/2016 Charli Chaney) (Ack 10:40 RMarsden R.N.) (11:45 RMarsden R.N.) Propofol Drip IV : initial bolus 0mg, then 0.1 mg/kg/min (TITRATE); Urgent (11:03 10/29/2016 RMarsden R.N. verbal order read back to Charli Chaney) (Ack 11:07 RMarsden R.N.) (11:52 RMarsden R.N.) Verbal order read back and verified IV NS : initial bolus 1000 mL (1000 mL/hr), then 1000 mL/hr for X1 (NOW); Urgent (18:44 10/29/2016 RMarsden R.N. per protocol) (18:49 RMarsden R.N.) Fentanyl IV 100 mcg (HIGH ALERT MEDICATION, NOW) (07:50 10/30/2016 RMarsden R.N. verbal order read back to Charli Chaney) (7:54 RMarsden R.N.) Verbal order read back and verified IV NS : initial bolus 1000 mL (1000 mL/hr), then 1000 mL/hr for X1 (NOW) (07:57 10/30/2016 RMarsden R.N. per protocol) (8:00 RMarsden R.N.) ORDER SHEET NOTES: [Electronically signed by Lydia Bob R.N. (13:52 10/30/2016)] [Electronically signed by Leandro Goodwin Dr. (20:40 10/30/2016)] [Electronically locked/signed by Lydia Bob R.N. (13:52 10/30/2016)]
--- NOTE | 2016-10-29 10:04 | ED NURSING NOTES ---
Clinical Report - Nurses [facility] [address] [place] [address] 10/29/2016 7:09 Patient: PAWEL XAVIER TRIAGE Triage time 0706. Chief Complaint: DRUG OVERDOSE (Pt got out of PV, went to his knees in a tripod position, opened doors for pt, then he got up, walked into the ambulance door, after being dropped off in a PV, stated "I am having an asthma attack",). --07:30 Shirley Braxton R.N. Acuity: LEVEL 1. Alert. --07:43 Shirley Braxton R.N. 07:07. ( Within 2 minutes of arrival, patient had a GCS of 3 (no motor or verbal response, no eye opening.)). LAUREN COMA SCORE: Lauren Coma Scale: 14- eyes open spontaneously (4); best verbal response- disoriented (4); best motor response- obeys commands (6). --12:48 Lydia Bob R.N. 07:07 10/29/16. BP: deferred. HR: 0. RR: 0. O2 saturation: deferred. Temp: deferred. FLACC pain scale: 0/10. Face: 0 - no particular expression or smile; legs: 0 - normal position or relaxed; activity: 0 - lying quietly, normal position, moves easily; cry: 0 - no cry (awake or asleep); consolability: 0 - content, relaxed. Additional comments: CPR in progress. . --12:48 Lydia Bob R.N. <<STRICKEN ENTRY-- 12:41 10/29/16. BP: deferred. HR: 0. RR: 0. O2 saturation: deferred. Temp: deferred. FLACC pain scale: 0/10. Face: 0 - no particular expression or smile; legs: 0 - normal position or relaxed; activity: 0 - lying quietly, normal position, moves easily; cry: 0 - no cry (awake or asleep); consolability: 0 - content, relaxed. Additional comments: CPR in progress. . --12:48 Lydia Bob R.N. --END STRIKE>> Correction. --16:53 Lydia Bob R.N. Weight: 77.5 kg measured. --07:27 Shirley Braxton R.N.. Height/Length: 72 inches. BMI: 23.2. --07:27 Lydia Bob R.N. Medications Albuterol Sulfate Inhalation. --07:40 Shirley Braxton R.N. Allergies Amoxicillin. --07:40 Shirley Braxton R.N. History Arrived by private vehicle. Historian: family. Accompanied by friend. This occurred just prior to arrival and today. 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 --07:30 Shirley Braxton R.N. ( CODE BLUE CALLED WITHIN 1 MINUTE OF PT ARRIVAL TO ED, PT INITIALLY CONSCIOUS, THEN WASN'T MOVING AIR WHEN TRYING TO TALK AT 0705). PAST MEDICAL HX: Immunizations: up-to-date. SOCIAL HX: Never smoker. History of drug use: heroin, methamphetamines. No alcohol use. FALL RISK ASSESSMENT: Fall risk assessment completed. No fall risk identified. --07:43 Shirley Braxton R.N. PROBLEMS: Fever. Lifestyle / Substance Problems. Abscess. Lung Disease. Ureterolithiasis. Substance Abuse. Cellulitis. Infections. Paronychia. Hives. Allergic Reaction. Asthma. Contusion. Crush Injury, Lower Extremity. Hypertension. Bronchitis. Laceration. Narcotic Withdrawal. Nephrolithiasis. --08:01 Shirley Braxton R.N. Bronchitis [RuleOut]. --08:01 Shirley Braxton R.N. ADDITIONAL SURGERIES: Adenoidectomy. Appendectomy. Bariatric Surgery. Fracture Repair. Lithotripsy. Pyloric Stenosis Surgery. Tonsillectomy. --08:01 Shirley Braxton R.N. Interventions ID band on patient. To room. --07:43 Shirley Braxton R.N. PHYSICAL ASSESSMENT 07:07. GENERAL / NEURO / PSYCH: Unresponsive (AND APNEIC, CPR INITIATED). --07:47 Shirley Braxton R.N. NURSING PROGRESS NOTES EKG time: (08). EKG was ordered, performed by a tech and shown to the ED physician. --09:03 [place] Day 07:08 10/29/2016 Site #1 started via IV in the left antecubital space with an 18g angiocath; one attempt. Blood drawn: rainbow set. Labeled in the presence of the patient and sent to the lab. Saline lock flushed with 3 mL saline. --09:25 Lydia Bob R.N. 07:09 10/29/2016 Site #2 started via IV in the right forearm with an 18g angiocath; one attempt. Saline lock flushed with 5 mL saline. --11:34 Lydia Bob R.N. 07:11 10/29/2016 Epinephrine (EPINEPHrine HCl) IVP 1 mg given over 5 second(s) via site #2. Confirmed 5 rights. IV patency established. IV site checked: no pain, redness, or swelling. IV flushed thoroughly pre- and post-medication administration. IVP given by RN. --11:44 Lydia Bob R.N. 07:14 10/29/2016 Atropine IVP 1 mg given over 5 second(s) via site #2. Confirmed 5 rights. IV patency established. IV site checked: no pain, redness, or swelling. IV flushed thoroughly pre- and post-medication administration. IVP given by RN. --11:45 Lydia Bob R.N. 07:24 10/29/2016 Albuterol Neb TX Nebulizer 5 unit dose given. Given by the respiratory therapist. Confirmed 5 rights. --12:53 Lydia Bob R.N. 07:36 10/29/2016 Magnesium Sulfate (Magnesium Sulfate in D5W) IVP 2 gm given over 30 minute(s) via site #1. Allergies verified and confirmed 5 rights. IV patency established. IV site checked: no pain, redness, or swelling. IV flushed thoroughly pre- and post-medication administration. IVP given by RN. --09:26 Lydia Bob R.N. 07:50 10/29/2016 Vistaril (HydrOXYzine HCl) IM 50 mg given. Given in the left deltoid. Confirmed 5 rights and sedative warning given to the patient. --09:29 Lydia Bob R.N. 08:23 10/29/2016 Started 1000 mg of Propofol Drip IV in bag #1 100 mL; at 20 mcg/kg/min over 4 hour(s) via site #1 via IV pump. Allergies verified and confirmed 5 rights. IV patency established. IV site checked: no pain, redness, or swelling. IV flushed thoroughly pre- and post-medication administration. --10:52 Lydia Bob R.N. 08:30 10/29/2016 Started 1000 mg of Propofol Drip IV in bag #1 100 mL; at 0.1 mg/kg/min over 1 hour(s) via site #1 via IV pump. Confirmed 5 rights. IV patency established. IV site checked: no pain, redness, or swelling. IV flushed thoroughly pre- and post-medication administration. --11:52 Lydia Bob R.N. 09:16 10/29/2016 Started 4 mg of Versed (Midazolam HCl) IVPB in bag #1 50 mL; at 8 mL/hr over 6 hour(s) via site #2 via IV pump. Allergies verified and confirmed 5 rights. IV patency established. IV site checked: no pain, redness, or swelling. IV flushed thoroughly pre- and post-medication administration. --11:42 Lydia Bob R.N. 09:20 10/29/2016 Propofol Drip IV Discontinued: bag #1 STOPPED. Total amount infused: 25 mL. IV patency established. IV site checked: no pain, redness, or swelling. IV flushed thoroughly. --12:50 Lydia Bob R.N. 09:49 10/29/2016 Started 20 meq of Potassium Chloride (Potassium Chloride) IVPB in bag #1 100 mL; at 50 mL/hr over 2 hour(s) via site #1 via IV pump. Confirmed 5 rights. IV patency established. IV site checked: no pain, redness, or swelling. IV flushed thoroughly pre- and post-medication administration. --09:52 Lydia Bob R.N. 12:30 10/29/2016 Versed IVPB Discontinued: bag #1 infused upon admission. Total amount infused: 50 mL. IV patency established. IV site checked: no pain, redness, or swelling. IV flushed thoroughly. --12:48 Lydia Bob R.N. 12:30 10/29/2016 Potassium Chloride IVPB Discontinued: bag #1 infused. Total amount infused: 100 mL. IV patency established. IV site checked: no pain, redness, or swelling. IV flushed thoroughly. --12:51 Lydia Bob R.N. 07:14 10/29/16. HR: 144. --13:15 Lydia Bob R.N. 07:17 10/29/16. BP: 130/81. HR: 140. O2 saturation: 78%. --13:20 Lydia Bob R.N. ( ED physician attempted intubation at 07:16. Intubation unsuccessful due to patient's agitation.). --13:20 Lydia Bob R.N. 07:20 10/29/16. BP: 167/90. HR: 135. RR: 16 (labored). ED physician notified. O2 saturation: 95% on non-rebreather. --13:24 Lydia Bob R.N. 07:23 10/29/16. BP: 176/100. HR: 136. RR: 20. O2 saturation: 100% on non-rebreather. --13:25 Lydia Bob R.N. <<STRICKEN ENTRY-- 07:25 10/29/16. HR: 134. RR: 22. O2 saturation: 99% on face mask. --13:29 Lydia oBb R.N. --END STRIKE>> Correction. --13:34 Lydia Bob R.N. 07:25 10/29/16. HR: 134. RR: 22. O2 saturation: 99% on face mask. O2 started via face mask. --13:29 Lydia Bob R.N. 07:13. 14 fr noel catheter placed. Reason for indwelling catheter: critical need to monitor intake and output and requires prolonged immobilization. During procedure hand hygiene observed and sterile equipment and aseptic technique used. Return of 900 mL yellow-colored clear urine; odor is normal; attached to bedside drainage bag positioned below the bladder and secured with tape. He tolerated procedure well. --13:32 Lydia Bob R.N. 07:21. Oxygen administered by nonrebreather mask at 100%. --13:24 [facility].N. [facility]. Oxygen administered by face mask at 9 liters (Patient not tolerating non rebreather mask. Patient repeatedly pulls NRB mask off of face. Face mask placed. Respirations remain irregular and labored.). --13:29 Lydia Bob R.N. --END STRIKE>> Correction --13:34 Lydia Bob R.N. 07:24. ( Face mask placed at 9L due to improved patient condition with NRB mask.). --13:36 Lydia Bob R.N. 07:25. Care transferred and report given (TO VIGNESH FREEMAN). --07:51 Shirley Braxton R.N. 07:35 10/29/16. BP: 180/100. HR: 128. RR: 28. O2 saturation: 99%. --13:51 Lydia Bob R.N. ( Radiology at bedside at 07:30. BiPap on at 07:38.). --13:51 Lydia Bob R.N. [facility]-- 13:51 10/29/16. BP: 174/97. HR: 124. RR: 24. O2 saturation: 100%. --13:52 Lydia Bob R.N. --END STRIKE>> Correction. --13:53 Lydia Bob R.N. 07:35 10/29/16. BP: 180/100. HR: 124. RR: 24. O2 saturation: 100%. --13:54 Lydia Bob R.N. 07:40 10/29/16. BP: 174/97. HR: 124. RR: 24. O2 saturation: 100%. --13:59 Lydia Bob R.N. 07:58. ( 07:58 - Patient is sitting up in tripod position with labored breathing. GCS 15. Patient is not tolerating Bipap. Patient states, "I can't breathe" and repeatedly pulls off the Bipap mask. Face mask placed at 9L. Patient reassured.). --14:11 Lydia Bob R.N. <<STRICKEN ENTRY-- 08:20. INTUBATION: Intubation performed by ED physician. Assisted by two nurses and respiratory therapist. Preparation: pulse oximeter and hvac technician applied, oxygen administration, IV established, intubation tray at bedside and pre-oxygenated. Procedure: 7.5 fr cuffed ETT via oral route. Proper airway placement confirmed by equal rise and fall of chest, epigastric auscultation, rising O2 sats, CO2 detector. Post-procedure: he was stable, tube secured, suctioning performed, connected to ventilator and bagged w/ BVM. CXR interpreted per physician. (tube secured at 26cm). Estimated blood loss: 0. Total time of assist / procedure: 15 minutes. --14:14 Lydia Bob R.N. --END STRIKE>> Correction --14:16 Lydia Bob R.N. 08:23 10/29/16. BP: 141/92. HR: 116. RR: 23. O2 saturation: 100%. --14:15 Lydia Bob R.N. 08:24. INTUBATION: Intubation performed by ED physician. Assisted by two nurses and respiratory therapist. Preparation: pulse oximeter, hvac technician and NIBP monitor applied, oxygen administration, BVM, suction and intubation tray at bedside, IV established and pre-oxygenated. Procedure: 7.5 fr ETT via oral route. Post-procedure. CXR interpreted per physician. (tube secured at 26cm). Estimated blood loss: 0. Total time of assist / procedure: 15 minutes. Sling applied. --14:17 Lydia Bob R.N. 08:28. ( Patient appears restless and agitated. Dr. Goodwin notified.). --14:19 Lydia Bob R.N. 08:39 10/29/16. HR: 111. RR: 30. O2 saturation: 90%. End tidal CO2: 44 mmHg. --14:20 Lydia Bob R.N. 08:44 10/29/16. BP: 125/77. HR: 115. RR: 19. O2 saturation: 91%. End tidal CO2: 39 mmHg. --14:21 Lydia Bob R.N. 08:56 10/29/16. BP: 75/55. HR: 118. RR: 30. O2 saturation: 98%. End tidal CO2: 26 mmHg. --14:22 Lydia Bob R.N. 09:10 10/29/16. BP: 88/64. HR: 113. RR: 27. O2 saturation: 100%. End tidal CO2: 39 mmHg. FLACC pain scale: 0/10. Face: 0 - no particular expression or smile; legs: 0 - normal position or relaxed; activity: 0 - lying quietly, normal position, moves easily; cry: 0 - no cry (awake or asleep); consolability: 0 - content, relaxed. --15:56 Lydia Bob R.N. 09:20 10/29/16. BP: 74/53. HR: 114. RR: 30. O2 saturation: 100%. FLACC pain scale: 0/10. --15:58 Lydia Bob R.N. 09:37 10/29/16. BP: 92/67. HR: 111. RR: 30. O2 saturation: 100%. FLACC pain scale: 0/10. --16:09 Lydia Bob R.N. 09:49 10/29/16. BP: 105/70. HR: 104. RR: 30. O2 saturation: 100%. End tidal CO2: 29 mmHg. Pain level now: 0/10. --16:11 Lydia Bob R.N. 09:54. Patient transported to CT by stretcher with O2, monitor, nurse and tech. --16:12 Lydia Bob R.N. <<STRICKEN ENTRY-- 09:54. Patient returned from CT by stretcher with O2, monitor, nurse and tech. --16:13 Lydia Bob R.N. --END STRIKE>> Correction --16:13 Lydia Bob R.N. 10:18. Patient returned from CT by stretcher with O2, monitor, nurse and tech. --16:14 Lydia Bob R.NElisabeth 10:24 10/29/16. BP: 103/53. HR: 104. RR: 29. O2 saturation: 96%. Temp: 97.6 F. Pain level now: 0/10. --16:15 Lydia Bob R.NElisabeth 07:55 10/29/16. BP: 141/92. HR: 118. RR: 26. O2 saturation: 94%. --16:47 Lydia Bob R.NElisabeth 08:10 10/29/16. BP: 142/100. HR: 117. RR: 23. O2 saturation: 100%. --16:48 Lydia Bob R.NElisabeth 09:25 10/29/16. BP: 96/68. HR: 111. RR: 30. O2 saturation: 100%. --16:49 Lydia oBb R.N. <<[facility] ENTRY-- 16:49 10/29/16. BP: 96/68. HR: 111. RR: 30. O2 saturation: 100%. --16:49 Lydia Bob R.N. --END STRIKE>> Correction. --16:52 Lydia Bob R.N. <<[facility] ENTRY-- 18:17 10/29/16. BP: 97/51. HR: 106. RR: 29. O2 saturation: 100%. Pain level now: 0/10. --18:22 Lydia Bob R.N. --END STRIKE>> Correction. --18:22 Lydia Bob R.NElisabeth 10:40 10/29/16. BP: 97/51. HR: 106. RR: 29. O2 saturation: 100%. Pain level now: 0/10. --18:23 Lydia Bob R.NElisabeth 10:55 10/29/16. BP: 91/50. HR: 107. RR: 34. O2 saturation: 98%. --18:24 Lydia Bob RElisabethNElisabeth 11:10 10/29/16. BP: 89/60. HR: 106. RR: 25. O2 saturation: 96%. --18:25 Lydia Bob R.N. 11:25 10/29/16. BP: 95/56. HR: 105. RR: 28. O2 saturation: 95%. --18:25 Lydia Bob R.N. 11:40 10/29/16. BP: 107/66. HR: 103. RR: 24. O2 saturation: 96%. Pain level now: 0/10. --18:26 Lydia Bob R.N. 11:45 10/29/16. BP: 108/62. HR: 103. RR: 26. O2 saturation: 97%. Pain level now: 0/10. --18:27 Lydia Bob R.N. 10:22. ( Patient's girlfriend at bedside.). --18:36 Lydia Bob R.N. Suctioning performed (Patient's ET tube was suctioned twice for 5 seconds at 09:50). 16 fr NG tube inserted in left nostril with no difficulty. Placement confirmed by auscultation and return of gastric contents. Return: brown fluid. Attached to low and intermittent suction. Patient tolerated procedure well. (NG tube placed at 11:47.). --18:40 Lydia Bob R.N. 07:10 10/29/2016 Started bag #1 1000 mL IV Fluids IV NS (Saline); bolus of 1000 mL wide open via site #1. Allergies verified and confirmed 5 rights. IV patency established site checked: no pain, redness, or swelling flushed thoroughly pre- and post-medication administration. Completed per protocol. --18:49 Lydia Bob R.N. 07:10 10/29/2016 Started bag #1 1000 mL IV Fluids IV NS (Saline); bolus of 1000 mL wide open via site #2. Confirmed 5 rights. IV patency established. IV site checked: no pain, redness, or swelling. IV flushed thoroughly pre- and post-medication administration. Completed per protocol. --08:00 Lydia Bob R.N. <<STRICKEN ENTRY-- 08:10 10/29/2016 IV Fluids IV NS Discontinued: bag #1 infused. Total amount infused: 1000 mL. IV patency established. IV site checked: no pain, redness, or swelling. IV flushed thoroughly. --19:06 Lydia Bob R.N. --END STRIKE>> Correction. --11:08 Lydia Bob R.N. 08:10 10/29/2016 IV Fluids IV NS Bag Change: bag #1 completed. Total amount infused: 1000. STARTED bag #2 (1000 mL) at 1000 mL/hr via IV pump. Confirmed 5 rights. IV patency established. IV site checked: no pain, redness, or swelling. IV flushed thoroughly. --11:09 Lydia Bob R.N. 08:10 10/29/2016 IV Fluids IV NS Bag Change: bag #1 completed. Total amount infused: 1000. STARTED bag #2 (1000 mL) at 250 mL/hr via IV pump. Confirmed 5 rights. IV patency established. IV site checked: no pain, redness, or swelling. IV flushed thoroughly. --11:13 Lydia Bob R.N. 08:36 10/29/2016 Fentanyl IVP 100 mcg given over 1 minute(s) via site #2. Confirmed 5 rights and sedative warning given to the patient. IV patency established. IV site checked: no pain, redness, or swelling. IV flushed thoroughly pre- and post-medication administration. IVP given by RN. --07:54 Lydia Bob R.N. 08:40 10/29/2016 ALBUTEROL NEB W ATROVENT Neb TX Nebulizer 1 unit dose given. Given by the respiratory therapist. Confirmed 5 rights. --18:41 Lydia Bob R.N. <<[facility]TRY-- 09:10 10/29/2016 IV Fluids IV NS Discontinued: bag #1 infused. Total amount infused: 1000 mL. IV patency established. IV site checked: no pain, redness, or swelling. IV flushed thoroughly. --11:08 Lydia Bob R.N. --END STRIKE>> Correction. --11:09 Lydia Bob R.N. 09:10 10/29/2016 IV Fluids IV NS Discontinued: bag #2 completed. Total amount infused: 1000 mL. IV patency established. IV site checked: no pain, redness, or swelling. IV flushed thoroughly. --11:09 Lydia Bob R.N. late entry - 11:45 10/29/16. 14 fr NG tube inserted with no difficulty. Placement confirmed by auscultation. Return: brown fluid. Attached to low and intermittent suction. Patient tolerated procedure well. --11:02 Lydia Bob R.N. 11:50 10/29/2016 IV Fluids IV NS Bag Change: bag #2. Total amount infused: 1000. STARTED bag #3 (1000 mL) at 250 mL/hr via IV pump. Confirmed 5 rights. IV patency established. IV site checked: no pain, redness, or swelling. IV flushed thoroughly. --11:13 Lydia Bob R.N. 12:00 10/29/2016 IV Fluids IV NS Continued: upon admission at the rate of 1000 mL/hr bag #3. IV patency established. IV site checked: no pain, redness, or swelling. IV flushed thoroughly. --11:16 Lydia Bob R.N. <<STRICKEN ENTRY-- 08:10 10/30/2016 IV Fluids IV NS Bag Change: bag #1 completed. Total amount infused: 1000. STARTED bag #2 (1000 mL) at 250 mL/hr via IV pump. Confirmed 5 rights. IV patency established. IV site checked: no pain, redness, or swelling. IV flushed thoroughly. --11:11 Lydia Bob R.N. --END STRIKE>> Correction. --11:13 Lydia Bob R.N. ( Correction for med administration - Propofol was administered at 20mcg/kg/min from 08:23-09:20. Titrated between 20mcg/kg/min and 50mcg/kg/min for effect. No other propofol was given.). --13:50 Lydia Bob R.N. CPR Flowsheet late entry - 07:14. CPR started (07:07). Code team, ED physician, primary nurse, secondary nurse, nurse advertising assistant manager, ruling technician, respiratory therapist, laboratory director and pharmacist notified about CPR. ED physician arrived in room (Dr Goodwin). Code restaurant shift leader arrived in room (MIGUEL Watson). Primary nurse arrived in room (MIGUEL Freeman, Jose, RN). Secondary nurse arrived in room (Cachorro RN). Recorder arrived in room (Antwon RN, Shirley RN). ED corrosion technician arrived in room ([place]). Respiratory therapist arrived in room. cable television line technician arrived in room. Nursing paper testing supervisor arrived in room (Stanley RN). Pharmacist arrived in room. Arrest event history: witnessed arrest in ED and out of the hospital- no treatment had been provided. Presenting rhythm is pulseless electrical activity. Oral intubation performed by the ED physician with a 7.5 cuffed endotracheal tube. Tube secured with an ETT kaur. Placement verified by equal bilateral chest rise and fall and rising oxygen saturation. Endotracheal tube placement checked. Endotracheal tube secured. No spontaneous respirations. Compressions performed with good pulse. Rhythm is PEA. EPINEPHRINE 1 mg IVP. ATROPINE 1 mg IVP. MAG SULFATE 2 gm IVP and IV drip CPR stopped at 07:14. --13:14 Lydia Bob R.N. pulse check at 07:12. No pulse noted. CPR resumed. Pulse noted at 07:14 when CPR was stopped. --13:16 Lydia Bob R.N. --16:38 Lydia Bob R.N. DISPOSITION / DISCHARGE 12:03 10/29/16. Report was given to a nurse via a phone call. Report included patient's care and treatment and medications given to the patient in the ED. All questions were answered. Report was acknowledged and care was transferred. --12:03 Lydia Bob R.N. 12:05. Admitted to the Critical Care Unit (12:05). Transported via stretcher by nurse, respiratory therapist and transport team with monitor, defibrillator, IV, O2 and emergency medications. --18:29 Lydia Bob R.N. 11:45 10/29/16. BP: 108/62. HR: 103. RR: 26. O2 saturation: 97%. Pain level now: 0/10. --18:29 Lydia Bob R.N. Locked/Released at 10/30/2016 13:52 by Lydia Bob R.N.
--- NOTE | 2016-10-29 10:56 | DIAGNOSTIC IMAGING REPORT ---
PROCEDURE: CTA THORAX WITH CONTRAST INDICATION: SHORTNESS OF BREATH TECHNIQUE: 108 ml of Isovue 370 was injected intravenously and axial images were obtained of the entire thorax with 3D sagittal and coronal MIP reconstructions. COMPARISON: Chest x-ray 10/29/2016. FINDINGS: There are prominent respiratory artifacts. No central pulmonary emboli but cannot exclude tiny peripheral emboli. Lungs are clear without evidence of aspiration. Mild bilateral hilar adenopathy. No effusions. ET tube in satisfactory position. Normal thoracic aorta. Normal heart size. Gastric lap band device in place. Mid sternal fracture versus misregistration artifact. IMPRESSION: 1. Prominent respiratory artifacts. 2. No central pulmonary emboli but cannot exclude tiny peripheral emboli 3. Midsternal fracture versus misregistration artifact 4. ET tube in satisfactory position 5. Results discussed with Dr. Goodwin
--- NOTE | 2016-10-29 16:41 | History & Physical Report ---
Information Source Information Source: Spouse/Partner, Parent Reliability: Fair History Chief Complaint respiratory failure and cardiac arrest History of Present Illness Patient is a 41 year old gentleman with a pmh of opioid/methamphetamine abuse that is presenting with a one day history of shortness of breath. History was obtained by the current girlfriend and mother. As per patients girlfriend he had been using his inhaler more frequently over the course of the past month. Patients girlfriend claims that he actively smokes heroin and methapmhetamine, and that he has been having shortness of breath associated with this. Patient had been using his albuterol inhaler approximately 20 times a day in some cases. Patient during this instance smoked methamphetamine with heroin(?) and developed shortness of breath. Patient was able to fall asleep however was persistenly short of breath during this time. Patients girlfriend woke up in the night to him having severe shortness of breath and as a result was brought to the hospital. Paitent upon arriving to the hosptial was severely short of breath and had poor air exchange. Patient was seen to be in respiratory failure, he developed bradycardia and went into cardiac arrest. Patient was intuated and acls was started. Patient had return of heart function and was transferred to the floor. Patient is currently hemodynamically stable. Patient History 1. Status asthmaticus 2. Substance abuse Social History Patient is an active methamphetamin and heroin user. Patient occasionally smokes cigarettes, occasionally drinks. Patient currently does not have any occupation. Patient has an ex- and 14 year old child Medications and Allergies Medications Home Medications None Current Medications Sig/Freda Start time Last Medication Dose Route Stop Time Status Admin Pantoprazole Sodium 40 MG DAILY@0600 10/30 0600 AC IV Methylprednisolone 80 MG Q8HR 10/29 2200 AC Sodium Succinate IV Albuterol/Ipratropium 3 ML RTQ6H 10/29 2000 AC IN Midazolam HCl 50 MG TITRATE 10/29 1800 AC Sodium Chloride 100 ML IV Midazolam HCl See Dose Q1H PRN 10/29 1430 AC 10/29 Insts (1) IV 1620 Sodium Chloride 1,000 ML ASDIRECTED 10/29 1430 AC IV Midazolam HCl 25 MG TITRATE 10/29 1230 AC Sodium Chloride 50 ML IV 10/29 1759 Dose Instructions: (1)Midazolam HCl: 2 - 5 MG Allergies Coded Allergies: Amoxicillin (From AUGMENTIN) (Severe, RED RASH "ALL OVER" 01/08/16) Clavulanic Acid (From AUGMENTIN) (Severe, RED RASH "ALL OVER" 01/08/16) Trazodone (Severe, 01/07/16) Review of Systems Constitutional Other (unable to assess given status ). Physical Exam Vital Signs / I&Os Vital Signs Date Time Temp Pulse Resp B/P Pulse O2 O2 Flow FiO2 Ox Delivery Rate 10/29 1600 103 25 111/65 97 Ventilator 10/29 1512 106/83 10/29 1509 98 22 95 Ventilator 10/29 1400 97.2 92 20 108/72 99 Ventilator 10/29 1300 95 20 109/66 99 Ventilator 10/29 1230 98 25 100/64 99 Ventilator 10/29 1228 96.6 99 25 103/63 99 Ventilator 10/29 1212 96.6 102 25 103/68 99 30 10/29 0708 89 General Appearance Alert, Oriented X3, No acute distress HEENT Atraumatic, Moist mucous membranes Lungs Clear to auscultation, - poor air exchange on exam - diffuse wheezes - ronchi in right lung predominant Neck Supple, No masses, No thyromegaly Cardiovascular Regular rate and rhythm, Normal S1 and S2, No murmurs, gallops, rubs Abdomen Soft, No masses, No hepatosplenomegaly Extremities No edema, Normal pulses, No tenderness, Strength = upper ext's, Strength = lower ext's, Liseth's sign negative Skin No Breakdown, No Significant Lesions Neurological - withdraws from pain and moves all 4 extremities while agitated Psych/Mental Status - sedated and agitated LAB Results Laboratory Tests 10/29 10/29 10/29 0724 0724 0725 Chemistry Plasma Sodium (136 - 145 mmol/L) 149 Plasma Potassium (3.5 - 5.1 mmol/L) 3.0 Plasma Chloride (98 - 107 mmol/L) 112 CO2 (Enzymatic) (21 - 32 mmol/L) 20 BUN (7 - 18 mg/dL) 15 Creatinine (0.6 - 1.3 mg/dL) 1.1 Est GFR ( Amer) (mL/min) >60 Est GFR (Non-Af Amer) (mL/min) >60 Glucose (70 - 110 mg/dL) 146 Plasma Calcium (8.5 - 10.1 mg/dL) 7.1 Plasma Magnesium (1.8 - 2.4 mg/dL) 1.9 Total Bilirubin (0.0 - 1.0 mg/dL) 0.4 AST (15 - 37 U/L) 17 ALT (12 - 78 U/L) 28 Alkaline Phosphatase (46 - 116 U/L) 70 Creatine Kinase (24 - 260 U/L) 102 Troponin (0.00 - 1.5 ng/mL) <0.05 Total Protein (6.4 - 8.2 g/dL) 6.0 Albumin (3.3 - 5.0 g/dL) 2.9 Procalcitonin (0 - 0.5 ng/mL) <0.5 Coagulation D-Dimer, Quantitative (0.27 - 0.52 ug/mLFEU) 1.20 Hematology WBC (4.5 - 11.5 K/uL) 14.1 RBC (4.50 - 5.90 M/uL) 4.81 Hgb (13.5 - 17.5 gm/dL) 14.0 Hct (41.0 - 53.0 %) 43.4 MCV (80 - 100 fL) 90 MCH (26 - 34 pg) 29 RDW (11.6 - 14.8 %) 13.7 Neut % (Auto) (50 - 75 %) 41.2 Lymph % (Auto) (25 - 40 %) 42.3 [place] % (Auto) (3 - 14 %) 7.4 Eos % (Auto) (0 - 4 %) 8.3 Baso % (Auto) (0 - 2 %) 0.8 Plt Count, EDTA (150 - 400 K/uL) 216 PUBS MCHC (31 - 37 g/dL) 32 Toxicology Urine Opiates Screen (NEGATIVE) POSITIVE Urine Methadone Screen (NEGATIVE) NEGATIVE Ur Barbiturates Screen (NEGATIVE) NEGATIVE U Amphetamin/Meth Scrn (NEGATIVE) POSITIVE MDMA (Ecstasy) Screen (NEGATIVE) NEGATIVE U Benzodiazepines Scrn (NEGATIVE) NEGATIVE Urine Cocaine Screen (NEGATIVE) NEGATIVE U Cannabinoids Screen (NEGATIVE) NEGATIVE Urines Urine Color YELLOW Urine Appearance CLEAR Urine pH (5.0 - 8.0) 6.0 Ur Specific [place] (1.010 - 1.030) 1.025 Urine Protein (NEGATIVE) NEGATIVE Urine Ketones (NEGATIVE) NEGATIVE Urine Blood (NEGATIVE) NEGATIVE Urine Nitrite (NEGATIVE) NEGATIVE Urine Bilirubin (NEGATIVE) NEGATIVE Urine Urobilinogen (0.2 - 1.0 EU/dL) 0.2 Ur Leukocyte Esterase (NEGATIVE) NEGATIVE Urine RBC (0 - 1 rbc/hpf) 1-3 Urine WBC (0 - 1 wbc/hpf) NONE SEEN Ur Epithelial Cells (0 - 5 EPI/hpf) 0-1 Urine Bacteria (NONE SEEN) TRACE (<1+) Urine Glucose (NEGATIVE) NEGATIVE Urine Comment CULT NOT INDICATED 10/29 10/29 10/29 10/29 10/29 0726 0842 0934 1109 1207 Blood Gas Sample Site RR RR RR LR Total CO2 (24.0 - 30.0 mmol/L) 21.8 27.1 23.8 22.4 ABG pH (7.35 - 7.45) 6.93 7.13 7.17 7.27 ABG pCO2 at Pt Temp (35 - 45 mmHg) 90.4 74.0 60.4 46.2 ABG pO2 at Pt Temp (80.0 - 100.0 mmHg) 147.0 77.9 111.0 115.0 ABG HCO3 (20.0 - 26.0 mmol/L) 19.0 24.8 22.0 20.9 ABG O2 Sat Calc/Jaren (95.1 - 100.0 %) 97.0 90.7 98.2 98.1 ABG Base Excess (-6.0 - -6.0 mmol/L) -13.6 -4.7 -6.5 -5.8 ABG Reduced Hgb (%) 3.0 9.2 1.8 1.9 ABG Carboxyhemoglobin (0.5 - 1.5 %) 1.1 1.4 1.2 1.3 ABG Methemoglobin (0.4 - 1.5 %) 0.2 0.2 0.2 0.1 Toby Test YES YES YES YES Other Total Hgb (14.0 - 18.0 g/dL) 15.1 14.2 13.1 13.6 A-a O2 Gradient (7.0 - 14.0 mmHg) 186.1 90.6 36.0 47.9 Hgb O2 Saturation (95.0 - 100.0 %) 95.7 89.2 96.8 96.7 Respiration Rate (/MIN) 32 26 30 20 O2 Liters/Min (0 - 20 L/MIN) 10 Vent Mode SB AC AC SIMV FiO2 (20 - 101 %) 50 30 30 30 Tidal Volume (cc) 350 400 540 PEEP (cmH2O) 5 5 5 Pressure Support (cmH2O) 5 Chemistry Lactic Acid (0.4 - 2.0 mmol/L) 3.1 10/29 1510 Chemistry Creatine Kinase (24 - 260 U/L) 397 CK-MB (CK-2) (0.5 - 3.2 ng/mL) 11.4 CK/CKMB % Calc (0.0 - 4.0 %) 2.9 Troponin (0.00 - 1.5 ng/mL) 0.12 Microbiology Date/Time Procedure - Status Source Growth 10/29 938 Blood Culture - RECD BLOOD 10/29 933 Blood Culture - RECD BLOOD Assessment and Plan Problem List 1. Respiratory arrest before cardiac arrest Plan - secondary to severe bronchocontriction - will treat as status asthmaticu - initial ekg did not show any evidence of acute [place] - will continue to trend troponins - first two are negative 2. Asthma exacerbation Plan - will treat as status asthmaticus - serial abgs, methylprednisolone 60 mg q8, duonebs q6 - will keep patient intubated for the time being - initial abg shows poor oxygenation and co2 retention from bronchoconstriction - inciting factor most likely methamphetamines - repeat abg shows improved oxygenation but no major improvements in CO2 retention - once tidal volume was increased did we see improvement in the aforementioned values - will continue with serial abgs 3. Substance abuse Plan - pt has a history of subnstance abuse problems incluindg heroin and amphetamin abuse - will address substance abuse issues when patient is lucid
[2016-10-30] VITALS (25 sets, daily range): BP systolic 119–1137; BP diastolic 58–107
--- NOTE | 2016-10-30 07:09 | DIAGNOSTIC IMAGING REPORT ---
PROCEDURE: XR CHEST 1 VIEW INDICATION: Follow up intubation. TECHNIQUE: Portable AP view (0620 hours). COMPARISON: Compared to chest x-ray on 10/29/2016. FINDINGS: ET tube is in satisfactory position. NG tube ends at the level of the inflatable gastric band. Allowing for overlying wires and electrodes, lungs are clear. Heart and mediastinum are normal. Thorax is normal. IMPRESSION: 1. NG tube ends at the level of the laparoscopic gastric band. 2. ET tube in satisfactory position. 3. Otherwise negative chest.
--- NOTE | 2016-10-30 11:56 | Progress Note ---
Subjective General Patient seen and examined. Patient still intubated. His respiratory exam has improved significantly compared to admission. Patient is otherwise stable for extubation as per the last ABG. Constitutional Other (unable to assess- intubated ). Physical Exam Vital Signs / I&Os Vital Signs Date Time Temp Pulse Resp B/P Pulse O2 O2 Flow FiO2 Ox Delivery Rate 10/30 1100 109 20 159/107 96 Ventilator 30 04/16 1000 103 20 140/95 96 Ventilator 30 / 0900 105 20 136/85 96 Ventilator 30 / 0816 98.1 10/30 0800 108 20 132/86 95 Ventilator /16 0745 Ventilator / 0703 106 20 137/89 96 Ventilator 30 / 0600 103 20 138/94 96 Ventilator 30 /16 0500 108 20 142/85 96 Ventilator 30 / 0400 107 20 137/90 95 Ventilator 30 / 0322 98.1 10/30 0300 106 20 141/90 96 Ventilator 30 / 0200 108 20 149/92 97 Ventilator 30 /16 0100 100 20 140/96 98 Ventilator 30 16 0000 109 20 130/87 99 Ventilator 30 04/15 2300 109 20 130/87 99 Ventilator 30 /15 2203 99.3 103 20 129/85 98 Ventilator 30 04/15 2100 98.8 106 20 128/79 99 Ventilator 30 04/15 2000 114 125/77 97 04/15 1950 Ventilator 30 04/15 1917 123/69 04/15 1900 98.2 114 24 119/66 95 Ventilator 30 04/15 1810 118/79 04/15 1805 99.0 107 19 95 Ventilator 30 04/15 1716 104 19 114/60 97 Ventilator 30 04/15 1600 103 25 111/65 97 Ventilator 30 04/15 1512 106/83 04/15 1509 98 22 95 Ventilator 30 04/15 1400 97.2 92 20 108/72 99 Ventilator 30 04/15 1330 Ventilator 04/15 1300 95 20 109/66 99 Ventilator 30 04/15 1230 98 25 100/64 99 Ventilator 04/15 1228 96.6 99 25 103/63 99 Ventilator 30 /15 1212 96.6 102 25 103/68 99 30 I&O 10/29 0800 04/15 1600 16 0000 Intake Total 0 725 Output Total 400 1150 Balance -400 -425 General Appearance No acute distress, - intubated and non-responsive secondary to sedation HEENT Atraumatic, Moist mucous membranes Lungs - adequate air exchange - no evidence of wheezes or ronchi as previously Neck Supple, No JVD, No thyromegaly, No lymphadenopathy, 2+ carotid pulse wo bruit Cardiovascular - tachycardic - RRR Abdomen Soft, No tenderness, No guarding Extremities No edema, Normal pulses, No tenderness Skin No Breakdown, No Significant Lesions Neurological - sedated Psych/Mental Status - sedated LAB Results Laboratory Tests 10/29 10/29 10/29 10/29 10/29 1207 1510 1714 2014 2299 Blood Gas Sample Site LR Total CO2 (24.0 - 30.0 mmol/L) 22.4 ABG pH (7.35 - 7.45) 7.27 ABG pCO2 at Pt Temp (35 - 45 mmHg) 46.2 ABG pO2 at Pt Temp (80.0 - 100.0 mmHg) 115.0 ABG HCO3 (20.0 - 26.0 mmol/L) 20.9 ABG O2 Sat Calc/Jaren (95.1 - 100.0 %) 98.1 ABG Base Excess (-6.0 - -6.0 mmol/L) -5.8 ABG Reduced Hgb (%) 1.9 ABG Carboxyhemoglobin (0.5 - 1.5 %) 1.3 ABG Methemoglobin (0.4 - 1.5 %) 0.1 Toby Test YES Other Total Hgb (14.0 - 18.0 g/dL) 13.6 A-a O2 Gradient (7.0 - 14.0 mmHg) 47.9 Hgb O2 Saturation (95.0 - 100.0 %) 96.7 Respiration Rate (/MIN) 20 Vent Mode SIMV FiO2 (20 - 101 %) 30 Tidal Volume (cc) 540 PEEP (cmH2O) 5 Pressure Support (cmH2O) 5 Chemistry Lactic Acid (0.4 - 2.0 mmol/L) 4.5 1.9 Creatine Kinase (24 - 260 U/L) 397 349 CK-MB (CK-2) (0.5 - 3.2 ng/mL) 11.4 15.0 CK/CKMB % Calc (0.0 - 4.0 %) 2.9 4.3 Troponin (0.00 - 1.5 ng/mL) 0.12 0.07 10/30 10/30 10/30 4061 6898 4332 Blood Gas Sample Site RR Total CO2 (24.0 - 30.0 mmol/L) 21.5 ABG pH (7.35 - 7.45) 7.51 ABG pCO2 at Pt Temp (35 - 45 mmHg) 26.2 ABG pO2 at Pt Temp (80.0 - 100.0 mmHg) 181.0 ABG HCO3 (20.0 - 26.0 mmol/L) 20.7 ABG O2 Sat Calc/Jaren (95.1 - 100.0 %) 100.2 ABG Base Excess (-6.0 - -6.0 mmol/L) -1.7 ABG Reduced Hgb (%) -0.2 ABG Carboxyhemoglobin (0.5 - 1.5 %) 1.2 ABG Methemoglobin (0.4 - 1.5 %) 0.1 Toby Test YES Other Total Hgb (14.0 - 18.0 g/dL) 13.9 Hgb O2 Saturation (95.0 - 100.0 %) 98.9 Respiration Rate (/MIN) 20 Vent Mode SIMV FiO2 (20 - 101 %) 30 Tidal Volume (cc) 600 PEEP (cmH2O) 5 Pressure Support (cmH2O) 5 Chemistry Plasma Sodium (136 - 145 mmol/L) 142 Plasma Potassium (3.5 - 5.1 mmol/L) 4.3 Plasma Chloride (98 - 107 mmol/L) 108 CO2 (Enzymatic) (21 - 32 mmol/L) 25 BUN (7 - 18 mg/dL) 15 Creatinine (0.6 - 1.3 mg/dL) 0.9 Est GFR ( Amer) (mL/min) >60 Est GFR (Non-Af Amer) (mL/min) >60 Glucose (70 - 110 mg/dL) 109 Plasma Calcium (8.5 - 10.1 mg/dL) 8.2 Plasma Magnesium (1.8 - 2.4 mg/dL) 2.0 Total Bilirubin (0.0 - 1.0 mg/dL) 0.7 AST (15 - 37 U/L) 22 ALT (12 - 78 U/L) 30 Alkaline Phosphatase (46 - 116 U/L) 56 Creatine Kinase (24 - 260 U/L) 231 Troponin (0.00 - 1.5 ng/mL) 0.05 Total Protein (6.4 - 8.2 g/dL) 6.0 Albumin (3.3 - 5.0 g/dL) 2.9 Hematology WBC (4.5 - 11.5 K/uL) 11.3 RBC (4.50 - 5.90 M/uL) 4.55 Hgb (13.5 - 17.5 gm/dL) 13.1 Hct (41.0 - 53.0 %) 40.2 MCV (80 - 100 fL) 88 MCH (26 - 34 pg) 29 RDW (11.6 - 14.8 %) 13.9 Neut % (Auto) (50 - 75 %) 91.6 Lymph % (Auto) (25 - 40 %) 7.4 [place] % (Auto) (3 - 14 %) 0.9 Eos % (Auto) (0 - 4 %) 0 Baso % (Auto) (0 - 2 %) 0.1 Plt Count, EDTA (150 - 400 K/uL) 192 PUBS MCHC (31 - 37 g/dL) 33 Microbiology Date/Time Procedure - Status Source Growth 10/29 1430 MRSA Screen - RECD NASAL Assessment and Plan Problem List 1. Respiratory arrest before cardiac arrest Plan - secondary to methamphetamine induced bronchoconstriction - will continue with around the clock duonebs and methylprednisone 60 mg q8 - will titrate down steroids - will attempt to extubate today 2. Status asthmaticus Plan - improved - will extubate today - lung exam has been clear 3. Substance abuse Plan - will provide referral information for drug treatment centers - will monitor for opioid withdrawal
--- NOTE | 2016-10-30 20:40 | ED DISCHARGE INSTRUCTIONS ---
Patient: PAWEL XAVIER General Instructions [facility] VisitID: [id number] [address] [place] [place] [address] 41y, M Registration Date/Time: 10/29/2016 Respiratory arrest. Cardiac arrest secondary to hypoxia and respiratory arrest. Status asthmaticus with hypoxemia and acute respiratory failure. Underlying asthma is persistent, moderate. (Electronically signed by Leandro Goodwin Dr. 10/30/2016 20:40)
--- NOTE | 2016-10-30 20:40 | ED MED RECONCILIATION SUMMARY ---
Patient: PAWEL XAVIER Medication Reconciliation Report [facility] VisitID: [id number] [address] [place] [address] 41y, M Registration Date/Time: 10/29/2016 Weight: 77.5 kg Height/Length: 72 in. BMI: 23.2 ALLERGIES: Amoxicillin The patient's Home Medications are listed below: THE FOLLOWING MEDICATIONS NEED TO BE RECONCILED: Albuterol Sulfate Inhalation The source(s) of the original Home Medication information: Not obtained. The following Medications were given to the patient in the Emergency Department: Magnesium Sulfate [IVP] IVP 2 gm, administered: 10/29/2016 7:36:00 AM Vistaril [IM] IM 50 mg, administered: 10/29/2016 7:50:00 AM Potassium Chloride [IVPB] IVPB bolus 0, then 20 meq 50 mL/hr, administered: 10/29/2016 9:49:00 AM Propofol [IV Drip] Drip IV bolus 0, then 1000 mg 20 mcg/kg/min, administered: 10/29/2016 8:23:00 AM Versed [IVPB] IVPB bolus 0, then 4 mg 8 mL/hr, administered: 10/29/2016 9:16:00 AM Epinephrine [IVP] IVP 1 mg, administered: 10/29/2016 7:11:00 AM Atropine [IVP] IVP 1 mg, administered: 10/29/2016 7:14:00 AM Propofol [IV Drip] Drip IV bolus 0, then 1000 mg 0.1 mg/kg/min, administered: 10/29/2016 8:30:00 AM Albuterol [Neb Tx] Neb TX 5 unit dose, administered: 10/29/2016 7:24:00 AM ALBUTEROL NEB W ATROVENT Neb [place] 1 unit dose, administered: 10/29/2016 8:40:00 AM IV NS IV Fluids bolus 1000 mL wide open, administered: 10/29/2016 7:10:00 AM Fentanyl [IVP] IVP 100 mcg, administered: 10/29/2016 8:36:00 AM IV NS IV Fluids bolus 1000 mL wide open, administered: 10/29/2016 7:10:00 AM The following Medications were prescribed to the patient: None.
--- NOTE | 2016-10-30 20:40 | ED MAR SUMMARY ---
..... Medication Administration Record [facility] [address] [facility] [facility] [place] [address] Patient: PAWEL XAVIER Visit ID: [id number] 41y, M Weight: 77.5 kg Height/Length: 72 in BMI: 23.2 ALLERGIES: Amoxicillin Start 07:10 10/29/2016 Lydia Bob R.N., Stop 09:10 10/29/2016 Lydia Bob R.N. Medication Administered: IV NS (SALINE), Dose: IV Fluids, Bolus: 1000 mL wide open, Dispensed: 1000 mL bag, Site: #1 left AC. Medication Ordered: IV NS : initial bolus 1000 mL (1000 mL/hr), then 1000 mL/hr for X1 (NOW); Urgent. Start 07:10 10/29/2016 Lydia Bob R.N., Continued Upon Admission 12:00 10/29/2016 Lydia Bob R.N. Medication Administered: IV NS (SALINE), Dose: IV Fluids, Bolus: 1000 mL wide open, Dispensed: 1000 mL bag, Site: #2 right forearm. Medication Ordered: IV NS : initial bolus 1000 mL (1000 mL/hr), then 1000 mL/hr for X1 (NOW). Given 07:11 10/29/2016 Lydia Bob R.N. Medication Administered: EPINEPHRINE [IVP] (EPINEPHRINE HCL), Dose: 1 mg IVP over 5 second(s), Site: #2 right forearm. Medication Ordered: Epinephrine IV 1 mg (HIGH ALERT MEDICATION, NOW). Given 07:14 10/29/2016 Lydia Bob R.N. Medication Administered: ATROPINE [IVP], Dose: 1 mg IVP over 5 second(s), Site: #2 right forearm. Medication Ordered: Atropine IV 1 mg (HIGH ALERT MEDICATION, NOW). Given 07:24 10/29/2016 Lydia Bob R.N. Medication Administered: ALBUTEROL [NEB TX], Dose: 5 unit dose Nebulizer Neb TX. Medication Ordered: Albuterol Neb Tx 5 unit doses (NOW). Given 07:36 10/29/2016 Lydia Bob R.N. Medication Administered: MAGNESIUM SULFATE [IVP] (MAGNESIUM SULFATE IN D5W), Dose: 2 gm IVP over 30 minute(s), Site: #1 left AC. Medication Ordered: Magnesium Sulfate IV 2 gm/50mL (HIGH ALERT MEDICATION, NOW). Given 07:50 10/29/2016 Lydia Bob R.N. Medication Administered: VISTARIL [IM] (HYDROXYZINE HCL), Dose: 50 mg IM. Medication Ordered: Vistaril IM 50 mg (NOW, Do not administer intravenously). Start 08:23 10/29/2016 Lydia Bob R.N. Medication Administered: PROPOFOL [IV DRIP], Dose: 1000 mg Drip IV over 4 hour(s), Rate: 20 mcg/kg/min, Dispensed: 100 mL bag, Site: #1 left AC. Medication Ordered: Propofol Drip IV : initial bolus 20 mg (TITRATE); Urgent. Start 08:30 10/29/2016 Lydia Bob R.N., Stop 09:20 10/29/2016 Lydia Bob R.N. Medication Administered: PROPOFOL [IV DRIP], Dose: 1000 mg Drip IV over 1 hour(s), Rate: 0.1 mg/kg/min, Dispensed: 100 mL bag, Site: #1 left AC. Medication Ordered: Propofol Drip IV : initial bolus 0mg, then 0.1 mg/kg/min (TITRATE); Urgent. Given 08:36 10/29/2016 Lydia Bob R.N. Medication Administered: FENTANYL [IVP], Dose: 100 mcg IVP over 1 minute(s), Site: #2 right forearm. Medication Ordered: Fentanyl IV 100 mcg (HIGH ALERT MEDICATION, NOW). Given 08:40 10/29/2016 Lydia Bob R.N. Medication Administered: ALBUTEROL NEB W ATROVENT, Dose: 1 unit dose Nebulizer Neb [place]. Medication Ordered: Albuterol Neb w Atrovent 1 unit dose (NOW). Start 09:16 10/29/2016 Lydia Bob R.N., Stop 12:30 10/29/2016 Lydia Bob R.N. Medication Administered: VERSED [IVPB] (MIDAZOLAM HCL), Dose: 4 mg IVPB over 6 hour(s), Rate: 8 mL/hr, Dispensed: 50 mL bag, Site: #2 right forearm. Medication Ordered: Versed IV 4 mg IV drip/hour. Titrate to effect. (HIGH ALERT MEDICATION, NOW). Start 09:49 10/29/2016 Lyida Bob RElisabethN., Stop 12:30 10/29/2016 Lydia Bob RKay. Medication Administered: POTASSIUM CHLORIDE [IVPB] (POTASSIUM CHLORIDE), Dose: 20 meq IVPB over 2 hour(s), Rate: 50 mL/hr, Dispensed: 100 mL bag, Site: #1 left AC. Medication Ordered: Potassium Chloride IV 20 meq/100mL (HIGH ALERT MEDICATION, NOW, Run no faster than 10 mEq/hr).
--- NOTE | 2016-10-30 20:40 | ED MAR SUMMARY ---
..... Medication Administration Record [facility] [address] [facility] [place] [address] Patient: PAWEL XAVIER Visit ID: [id number] 41y, M Weight: 77.5 kg Height/Length: 72 in BMI: 23.2 ALLERGIES: Amoxicillin Start 07:10 10/29/2016 Lydia Bob R.N., Stop 09:10 10/29/2016 Lydia Bob R.N. Medication Administered: IV NS (SALINE), Dose: IV Fluids, Bolus: 1000 mL wide open, Dispensed: 1000 mL bag, Site: #1 left AC. Medication Ordered: IV NS : initial bolus 1000 mL (1000 mL/hr), then 1000 mL/hr for X1 (NOW); Urgent. Start 07:10 10/29/2016 Lydia Bob R.N., Continued Upon Admission 12:00 10/29/2016 Lydia Bob R.N. Medication Administered: IV NS (SALINE), Dose: IV Fluids, Bolus: 1000 mL wide open, Dispensed: 1000 mL bag, Site: #2 right forearm. Medication Ordered: IV NS : initial bolus 1000 mL (1000 mL/hr), then 1000 mL/hr for X1 (NOW). Given 07:11 10/29/2016 Lydia Bob R.N. Medication Administered: EPINEPHRINE [IVP] (EPINEPHRINE HCL), Dose: 1 mg IVP over 5 second(s), Site: #2 right forearm. Medication Ordered: Epinephrine IV 1 mg (HIGH ALERT MEDICATION, NOW). Given 07:14 10/29/2016 Lydia Bob R.N. Medication Administered: ATROPINE [IVP], Dose: 1 mg IVP over 5 second(s), Site: #2 right forearm. Medication Ordered: Atropine IV 1 mg (HIGH ALERT MEDICATION, NOW). Given 07:24 10/29/2016 Lydia Bob R.N. Medication Administered: ALBUTEROL [NEB TX], Dose: 5 unit dose Nebulizer Neb [place]. Medication Ordered: Albuterol Neb Tx 5 unit doses (NOW). Given 07:36 10/29/2016 Lydia Bob R.N. Medication Administered: MAGNESIUM SULFATE [IVP] (MAGNESIUM SULFATE IN D5W), Dose: 2 gm IVP over 30 minute(s), Site: #1 left AC. Medication Ordered: Magnesium Sulfate IV 2 gm/50mL (HIGH ALERT MEDICATION, NOW). Given 07:50 10/29/2016 Lydia Bob R.N. Medication Administered: VISTARIL [IM] (HYDROXYZINE HCL), Dose: 50 mg IM. Medication Ordered: Vistaril IM 50 mg (NOW, Do not administer intravenously). Start 08:23 10/29/2016 Lydia Bob R.N. Medication Administered: PROPOFOL [IV DRIP], Dose: 1000 mg Drip IV over 4 hour(s), Rate: 20 mcg/kg/min, Dispensed: 100 mL bag, Site: #1 left AC. Medication Ordered: Propofol Drip IV : initial bolus 20 mg (TITRATE); Urgent. Start 08:30 10/29/2016 Lydia Bob R.N., Stop 09:20 10/29/2016 Lydia Bob R.N. Medication Administered: PROPOFOL [IV DRIP], Dose: 1000 mg Drip IV over 1 hour(s), Rate: 0.1 mg/kg/min, Dispensed: 100 mL bag, Site: #1 left AC. Medication Ordered: Propofol Drip IV : initial bolus 0mg, then 0.1 mg/kg/min (TITRATE); Urgent. Given 08:36 10/29/2016 Lydia Bob R.N. Medication Administered: FENTANYL [IVP], Dose: 100 mcg IVP over 1 minute(s), Site: #2 right forearm. Medication Ordered: Fentanyl IV 100 mcg (HIGH ALERT MEDICATION, NOW). Given 08:40 10/29/2016 Lydia Bob R.N. Medication Administered: ALBUTEROL NEB W ATROVENT, Dose: 1 unit dose Nebulizer Neb [place]. Medication Ordered: Albuterol Neb w Atrovent 1 unit dose (NOW). Start 09:16 10/29/2016 Lydia Bob R.N., Stop 12:30 10/29/2016 Lydia Bob R.N. Medication Administered: VERSED [IVPB] (MIDAZOLAM HCL), Dose: 4 mg IVPB over 6 hour(s), Rate: 8 mL/hr, Dispensed: 50 mL bag, Site: #2 right forearm. Medication Ordered: Versed IV 4 mg IV drip/hour. Titrate to effect. (HIGH ALERT MEDICATION, NOW). Start 09:49 10/29/2016 Lydia Bob RElisabethN., Stop 12:30 10/29/2016 Lydia Bob RKay. Medication Administered: POTASSIUM CHLORIDE [IVPB] (POTASSIUM CHLORIDE), Dose: 20 meq IVPB over 2 hour(s), Rate: 50 mL/hr, Dispensed: 100 mL bag, Site: #1 left AC. Medication Ordered: Potassium Chloride IV 20 meq/100mL (HIGH ALERT MEDICATION, NOW, Run no faster than 10 mEq/hr).
--- NOTE | 2016-10-30 20:40 | ED MED RECONCILIATION SUMMARY ---
Patient: PAWEL XAVIER Medication Reconciliation Report [facility] VisitID: [id number] [address] [place] [address] 41y, M Registration Date/Time: 10/29/2016 Weight: 77.5 kg Height/Length: 72 in. BMI: 23.2 ALLERGIES: Amoxicillin The patient's Home Medications are listed below: THE FOLLOWING MEDICATIONS NEED TO BE RECONCILED: Albuterol Sulfate Inhalation The source(s) of the original Home Medication information: Not obtained. The following Medications were given to the patient in the Emergency Department: Magnesium Sulfate [IVP] IVP 2 gm, administered: 10/29/2016 7:36:00 AM Vistaril [IM] IM 50 mg, administered: 10/29/2016 7:50:00 AM Potassium Chloride [IVPB] IVPB bolus 0, then 20 meq 50 mL/hr, administered: 10/29/2016 9:49:00 AM Propofol [IV Drip] Drip IV bolus 0, then 1000 mg 20 mcg/kg/min, administered: 10/29/2016 8:23:00 AM Versed [IVPB] IVPB bolus 0, then 4 mg 8 mL/hr, administered: 10/29/2016 9:16:00 AM Epinephrine [IVP] IVP 1 mg, administered: 10/29/2016 7:11:00 AM Atropine [IVP] IVP 1 mg, administered: 10/29/2016 7:14:00 AM Propofol [IV Drip] Drip IV bolus 0, then 1000 mg 0.1 mg/kg/min, administered: 10/29/2016 8:30:00 AM Albuterol [Neb Tx] Neb TX 5 unit dose, administered: 10/29/2016 7:24:00 AM ALBUTEROL NEB W ATROVENT Neb TX 1 unit dose, administered: 10/29/2016 8:40:00 AM IV NS IV Fluids bolus 1000 mL wide open, administered: 10/29/2016 7:10:00 AM Fentanyl [IVP] IVP 100 mcg, administered: 10/29/2016 8:36:00 AM IV NS IV Fluids bolus 1000 mL wide open, administered: 10/29/2016 7:10:00 AM The following Medications were prescribed to the patient: None.
--- NOTE | 2016-10-30 20:40 | ED DISCHARGE INSTRUCTIONS ---
Patient: PAWEL XAVIER General Instructions [facility] VisitID: [id number] [address] [place] [place] [address] 41y, M Registration Date/Time: 10/29/2016 Respiratory arrest. Cardiac arrest secondary to hypoxia and respiratory arrest. Status asthmaticus with hypoxemia and acute respiratory failure. Underlying asthma is persistent, moderate. (Electronically signed by Leandro Goodwin Dr. 10/30/2016 20:40)
[2016-10-31] VITALS (24 sets, daily range): BP systolic 119–164; BP diastolic 53–103
--- NOTE | 2016-10-31 17:56 | Progress Note ---
Subjective General Pt seen and examined. Patient has no complaints at the time being. Patient has persistent wheezing. Constitutional Denies: Fever, Chills, Sweats, Weakness, Malaise, Other. Eyes Denies: Pain, Vision Change, Conjunctival Inflammation, Eyelid Inflammation, Redness, Other. Respiratory SOB w/exertion, Wheezing. Denies: Cough, Dry, Hemoptysis, Pleuritic Pain, Sputum, Other. Cardiovascular Denies: Chest Pain, Palpitations, Orthopnea, PND, Edema, Light-headedness, Other. Gastrointestinal Denies: Nausea, Vomiting, Abdominal Pain, Diarrhea, Constipation, Melena, Hematochezia, Other. Genitourinary Denies: Dysuria, Frequency, Incontinence, Hematuria, Retention, Other. Musculoskeletal Denies: Neck Pain, Shoulder Pain, Arm Pain, Back Pain, Hand Pain, Leg Pain, Foot Pain, Other. Skin Denies: Rash, Lesions, Jaundice, Bruising, Other. Neurological Denies: Weakness, Numbness, Incoordination, Change in speech, Confusion, Seizures, Other. Physical Exam Vital Signs / I&Os Vital Signs Date Time Temp Pulse Resp B/P Pulse O2 O2 Flow FiO2 Ox Delivery Rate 10/31 1722 98.1 10/31 1700 86 11 155/100 92 Nasal 2.0 Cannula 10/31 1600 98.1 91 12 159/99 92 Nasal 2.0 Cannula 10/31 1500 98.1 102 18 164/102 95 Nasal 2.0 Cannula 10/31 1450 2.0 10/31 1400 89 18 157/78 94 Nasal 2.0 Cannula 10/31 1300 97.5 89 18 140/103 94 Nasal 2.0 Cannula 10/31 1223 2.0 10/31 1200 85 18 136/93 94 Nasal 2.0 Cannula 10/31 1100 97.5 73 16 122/84 92 Room Air 0.0 10/31 1000 95 18 135/73 92 Room Air 0.0 10/31 0900 Room Air 10/31 0900 95 18 145/91 94 Nasal 1.0 Cannula 10/31 0800 90 18 145/86 93 Nasal 1.0 Cannula 10/31 0725 1.0 10/31 0700 97.3 90 18 138/86 93 Nasal 1.0 Cannula 10/31 0600 97.3 97 18 126/78 93 Nasal 1.0 Cannula 10/31 0500 91 14 131/88 92 Nasal 2.0 Cannula 10/31 0400 77 12 130/77 94 Nasal 2.0 Cannula 10/31 0300 94 15 133/77 94 Nasal Cannula 10/31 0230 2.0 10/31 0200 97.3 92 15 132/76 94 Nasal 2.0 Cannula 10/31 0100 99 17 119/59 94 Nasal 2.0 Cannula 10/31 0015 103 18 138/78 94 Nasal 2.0 Cannula 10/30 2300 98.2 102 21 136/78 92 Room Air 10/30 2211 115 23 126/58 95 Nasal 3.0 Cannula 10/30 2110 119/63 10/30 2103 98.2 118 24 132/67 94 Nasal 3.0 Cannula 10/30 2024 Nasal 3.0 Cannula 10/30 2012 126 20 126/62 93 Nasal 2.0 Cannula 10/30 2009 2.0 10/30 1914 118 20 128/67 94 Nasal 3.0 Cannula 10/30 1817 116 33 123/78 97 Nasal 3.0 Cannula I&O 10/30 0800 10/30 1600 10/31 0000 Intake Total 3228 580 1420 Output Total 1752 1870 575 Balance 1476 -1290 845 General Appearance Alert, Oriented X3, No acute distress HEENT Atraumatic, Moist mucous membranes Lungs - wheezing in all lung espinal - appropriate oxygen saturation - will continue to monitor Cardiovascular Regular rate and rhythm, Normal S1 and S2, No murmurs, gallops, rubs Abdomen Soft, No tenderness Extremities No clubbing, No edema, Normal pulses, Strength = upper ext's, Strength = lower ext's Skin No Breakdown Neurological Normal speech, Sensation intact, Cranial nerves intact, No lateralizing signs Psych/Mental Status Mood normal LAB Results Laboratory Tests 10/31 0420 Chemistry Plasma Sodium (136 - 145 mmol/L) 146 Plasma Potassium (3.5 - 5.1 mmol/L) 4.1 Plasma Chloride (98 - 107 mmol/L) 111 CO2 (Enzymatic) (21 - 32 mmol/L) 27 BUN (7 - 18 mg/dL) 22 Creatinine (0.6 - 1.3 mg/dL) 0.9 Est GFR ( Amer) (mL/min) >60 Est GFR (Non-Af Amer) (mL/min) >60 Glucose (70 - 110 mg/dL) 132 Plasma Calcium (8.5 - 10.1 mg/dL) 8.3 Total Bilirubin (0.0 - 1.0 mg/dL) 0.3 AST (15 - 37 U/L) 22 ALT (12 - 78 U/L) 35 Alkaline Phosphatase (46 - 116 U/L) 56 Total Protein (6.4 - 8.2 g/dL) 5.9 Albumin (3.3 - 5.0 g/dL) 2.7 Hematology WBC (4.5 - 11.5 K/uL) 13.4 RBC (4.50 - 5.90 M/uL) 4.37 Hgb (13.5 - 17.5 gm/dL) 12.6 Hct (41.0 - 53.0 %) 38.8 MCV (80 - 100 fL) 89 MCH (26 - 34 pg) 29 RDW (11.6 - 14.8 %) 14.2 Neut % (Auto) (50 - 75 %) 92.3 Lymph % (Auto) (25 - 40 %) 4.9 [place] % (Auto) (3 - 14 %) 2.7 Eos % (Auto) (0 - 4 %) 0 Baso % (Auto) (0 - 2 %) 0.1 Plt Count, EDTA (150 - 400 K/uL) 183 PUBS MCHC (31 - 37 g/dL) 32 Assessment and Plan Problem List 1. Status asthmaticus Plan - secondary to methamphetamine induced bronchoconstrictin - will c/w duonebs and steroid treatment - will monitor on continuous pulse oximetry - no antibiotics indiciated at the moment - will monitor for improvement 2. Substance abuse Plan - pt cautioned to not
[2016-11-01] VITALS (15 sets, daily range): BP systolic 129–161; BP diastolic 87–106
--- NOTE | 2016-11-01 18:43 | Progress Note ---
Subjective General Patient seen and examined. Patient is still persistently wheezy with some basilar ronchi. Patient is otherwise stable. Constitutional Denies: Fever, Chills, Sweats, Weakness, Malaise, Other. Eyes Denies: Pain, Vision Change, Conjunctival Inflammation, Eyelid Inflammation, Redness, Other. Respiratory SOB w/exertion, Wheezing. Denies: Cough, Dry, Hemoptysis, Pleuritic Pain, Sputum, Other. Cardiovascular Denies: Chest Pain, Palpitations, Orthopnea, PND, Edema, Light-headedness, Other. Gastrointestinal Denies: Nausea, Vomiting, Abdominal Pain, Diarrhea, Constipation, Melena, Hematochezia, Other. Genitourinary Denies: Dysuria, Frequency, Incontinence, Hematuria, Retention, Other. Musculoskeletal Denies: Neck Pain, Shoulder Pain, Arm Pain, Back Pain, Hand Pain, Leg Pain, Foot Pain, Other. Skin Denies: Rash, Lesions, Jaundice, Bruising, Other. Neurological Denies: Weakness, Numbness, Incoordination, Change in speech, Confusion, Seizures, Other. Physical Exam Vital Signs / I&Os Vital Signs Date Time Temp Pulse Resp B/P Pulse O2 O2 Flow FiO2 Ox Delivery Rate 11/01 1836 98.1 83 13 155/106 93 Nasal 2.0 Cannula 11/01 1436 98.1 67 12 161/104 93 Nasal 2.0 Cannula 11/01 1340 2.0 11/01 1100 98.1 74 18 149/99 94 Nasal 2.0 Cannula / 1000 89 18 140/92 90 Nasal 2.0 Cannula 11/01 0900 Nasal 2.0 Cannula 11/01 0900 93 18 140/92 90 Nasal 2.0 Cannula 11/01 0800 93 12 129/90 90 Mask 2.0 11/01 0749 2.0 11/01 0700 97.3 77 18 144/92 90 Mask 2.0 18 0607 2.0 18 0600 77 16 130/89 90 Mask 2.0 11/01 0500 62 16 138/89 90 Mask 2.0 11/01 0403 93 Mask / 0400 69 16 148/96 91 Mask 2.0 11/01 0300 79 16 153/95 89 Nasal 1.5 Cannula 11/01 0200 69 16 151/100 90 Nasal 1.5 Cannula 11/01 0156 1.5 11/01 0100 71 9 140/91 93 Nasal 1.5 Cannula 11/01 0015 73 12 146/87 93 Nasal 1.5 Cannula 11/01 0000 75 12 93 Mask 1.5 10/31 2305 97.9 82 22 123/53 93 Mask 1.5 10/31 2258 98.1 87 12 136/83 93 Nasal 1.5 Cannula 10/31 2114 1.5 10/31 2100 101 14 144/87 91 Nasal 1.5 Cannula 11/01 2051 Nasal 2.0 Cannula 10/31 2000 94 12 150/91 91 Nasal 2.0 Cannula 10/31 1900 75 11 151/86 93 Nasal 2.0 Cannula I&O 10/31 0800 10/31 1600 11/01 0000 Intake Total 240 640 450 Output Total 400 650 750 Balance -160 -10 -300 General Appearance Alert, Oriented X3, No acute distress HEENT Atraumatic, Moist mucous membranes Lungs - bilateral wheezes - oxygen requirement of 2 liters is still present - basilar ronchi Neck Supple, No masses Cardiovascular Regular rate and rhythm, Normal S1 and S2, No murmurs, gallops, rubs Abdomen Soft, No tenderness, No rebound, No masses, No hepatosplenomegaly Extremities No clubbing, No edema, Normal pulses, Strength = upper ext's, Strength = lower ext's Skin No Breakdown, No Significant Lesions Neurological Normal speech, Normal tone, Cranial nerves intact, No lateralizing signs Psych/Mental Status Mood normal LAB Results Laboratory Tests 11/01 417 Chemistry Plasma Sodium (136 - 145 mmol/L) 145 Plasma Potassium (3.5 - 5.1 mmol/L) 4.3 Plasma Chloride (98 - 107 mmol/L) 108 CO2 (Enzymatic) (21 - 32 mmol/L) 32 BUN (7 - 18 mg/dL) 21 Creatinine (0.6 - 1.3 mg/dL) 0.8 Est GFR ( Amer) (mL/min) >60 Est GFR (Non-Af Amer) (mL/min) >60 Glucose (70 - 110 mg/dL) 126 Plasma Calcium (8.5 - 10.1 mg/dL) 8.6 Total Bilirubin (0.0 - 1.0 mg/dL) 0.4 AST (15 - 37 U/L) 26 ALT (12 - 78 U/L) 58 Alkaline Phosphatase (46 - 116 U/L) 59 Total Protein (6.4 - 8.2 g/dL) 6.2 Albumin (3.3 - 5.0 g/dL) 2.7 Hematology WBC (4.5 - 11.5 K/uL) 14.2 RBC (4.50 - 5.90 M/uL) 4.53 Hgb (13.5 - 17.5 gm/dL) 13.1 Hct (41.0 - 53.0 %) 40.2 MCV (80 - 100 fL) 89 MCH (26 - 34 pg) 29 RDW (11.6 - 14.8 %) 14.3 Neut % (Auto) (50 - 75 %) 92.3 Lymph % (Auto) (25 - 40 %) 3.6 [place] % (Auto) (3 - 14 %) 4.0 Eos % (Auto) (0 - 4 %) 0 Baso % (Auto) (0 - 2 %) 0.1 Plt Count, EDTA (150 - 400 K/uL) 194 PUBS MCHC (31 - 37 g/dL) 33 Assessment and Plan Problem List 1. Respiratory arrest before cardiac arrest Plan - secondary to methamphetamine induced bronchospasm - will continue with steroids at current rate - c/w duonebs as scheduled - will monitor for improvement - no indication for antibiotics at the moment 2. Substance abuse Plan - will give patient referrals for substance abuse centers - pt currently on methadone bid with no evidence of withdrawal
[2016-11-02 02:04] VITALS: BP 148/93
--- NOTE | 2016-11-02 06:32 | Progress Note ---
Subjective General Note Date: November 02, 2016 Admission Date: October 29, 2016 Hospital Day: 5 PCP: None Status: Inpatient Advanced Directive: FULL CODE Room: 303 Brief History: The patient is a 41-year-old white male with a significant past medical history of illicit drug use heroin/methamphetamine, nicotine dependence-smoking, who presented to [facility] emergency department secondary to complaints of shortness of breath. Evaluation at that time was consistent with status asthmaticus/reactive airway disease with associated respiratory failure requiring intubation with mechanical ventilation. Secondary to the above, the patient was admitted by Edilson Guadarrama M.D. for further evaluation and treatment. For other history present illness, past medical history, family history, social history, review of systems, and admission physical examination please see the patient's history and physical examination and ER visit note in the patient's medical record. Subjective: The patient states he is doing fairly well today. Respiratory status significantly improved. Patient states status 70% improved since admission. Remains mildly short of breath with wheezing in a.m. Patient requests: No specific other than improved control of narcotic withdrawal Medications and Allergies Medications Current Medications Sig/Freda Start time Last Medication Dose Route Stop Time Status Admin Lisinopril 5 MG DAILY 10/31 1804 AC 11/01 PO 0852 Albuterol Sulfate 2.5 MG RTQ4H PRN 10/31 1245 AC 11/01 IN 0606 Metoprolol Tartrate 12.5 MG BID 10/30 2100 AC 11/01 PO 2057 Methadone HCl 20 MG BID 10/30 1720 AC 11/01 PO 2056 Morphine Sulfate See Dose Q4H PRN 10/30 1400 AC 11/02 Insts (1) IV 0022 Racepinephrine 0.5 ML Q3H PRN 10/30 1030 AC IN Pantoprazole Sodium 40 MG DAILY@0600 10/30 0600 AC 11/02 IV 0534 Methylprednisolone 80 MG Q8HR 10/29 2200 AC 11/02 Sodium Succinate IV 0534 Albuterol/Ipratropium 3 ML RTQ6H 10/29 2000 AC 11/02 IN 0123 Dose Instructions: (1)Morphine Sulfate: 1 - 2 MG Allergies Coded Allergies: Amoxicillin (From AUGMENTIN) (Severe, RED RASH "ALL OVER" 01/08/16) Clavulanic Acid (From AUGMENTIN) (Severe, RED RASH "ALL OVER" 01/08/16) Trazodone (Severe, 01/07/16) Physical Exam Vital Signs / I&Os Vital Signs Date Time Temp Pulse Resp B/P Pulse O2 O2 Flow FiO2 Ox Delivery Rate 11/02 0204 97.9 70 16 148/93 91 Nasal 2.0 Cannula 11/02 0124 2.0 11/01 2102 Nasal 2.0 Cannula 11/01 210 98.8 86 14 155/100 93 Nasal 2.0 Cannula 11/01 2023 2.0 11/01 1836 98.1 83 13 155/106 93 Nasal 2.0 Cannula 11/01 1436 98.1 67 12 161/104 93 Nasal 2.0 Cannula 11/01 1340 2.0 11/01 1100 98.1 74 18 149/99 94 Nasal 2.0 Cannula 11/01 1000 89 18 140/92 90 Nasal 2.0 Cannula 11/01 0900 Nasal 2.0 Cannula 11/01 0900 93 18 140/92 90 Nasal 2.0 Cannula 11/01 0800 93 12 129/90 90 Mask 2.0 11/01 0749 2.0 11/01 0700 97.3 77 18 144/92 90 Mask 2.0 I&O 11/02 0000 11/01 1600 11/01 0800 Intake Total 240 1020 600 Output Total 1225 1050 Balance -985 -30 600 General Appearance Alert, Oriented X3, Cooperative, No acute distress Lungs bilateral expiratory wheezes. Scattered rhonchi. Cardiovascular Regular rate and rhythm, Normal S1 and S2, No murmurs, gallops, rubs Abdomen Normal bowel sounds, Soft, No tenderness Extremities No cyanosis, No clubbing, No edema Neurological Cranial nerves intact, No lateralizing signs Psych/Mental Status Mental status normal, Mood normal LAB Results Laboratory Tests 11/025 Chemistry Plasma Sodium (136 - 145 mmol/L) 143 Plasma Potassium (3.5 - 5.1 mmol/L) 4.4 Plasma Chloride (98 - 107 mmol/L) 105 CO2 (Enzymatic) (21 - 32 mmol/L) 35 BUN (7 - 18 mg/dL) 22 Creatinine (0.6 - 1.3 mg/dL) 0.9 Est GFR ( Amer) (mL/min) >60 Est GFR (Non-Af Amer) (mL/min) >60 Glucose (70 - 110 mg/dL) 132 Plasma Calcium (8.5 - 10.1 mg/dL) 8.6 Hematology WBC (4.5 - 11.5 K/uL) 12.5 RBC (4.50 - 5.90 M/uL) 4.72 Hgb (13.5 - 17.5 gm/dL) 13.9 Hct (41.0 - 53.0 %) 42.4 MCV (80 - 100 fL) 90 MCH (26 - 34 pg) 30 RDW (11.6 - 14.8 %) 14.1 Neut % (Auto) (50 - 75 %) Pending Lymph % (Auto) (25 - 40 %) Pending [place] % (Auto) (3 - 14 %) Pending Band Neutrophils % (0 - 8 %) Pending Plt Count, EDTA (150 - 400 K/uL) 194 PUBS MCHC (31 - 37 g/dL) 33 Assessment and Plan Problem List 1. Respiratory failure Plan -Resolved 2. Asthma exacerbation Plan -Patient with persistent bronchospasm -Continue DuoNeb/albuterol -Switch to oral corticosteroids -Wean oxygen as appropriate -Probable discharge in a.m. 3. Illicit drug use Status Chronic Onset Date Unknown Plan -Patient with history of methamphetamine/heroin usage -Opiate replacement therapy with methadone 20 mg by mouth every 8 hours -Aid in enrollment in methadone treatment program, and discharge planning to help patient in this effort 4. Hyperglycemia Status Acute Onset Date Unknown Plan -Blood glucose mild elevation -Check hemoglobin A1c in a.m. -Monitor Current status: Fair, improved Anticipated discharge date: Anticipated discharge in a.m. Anticipated discharge placement: Home Patient care time: Time spent in chart review, patient interview, physical exam, CPOE, and care documentation: 25 minutes Visit to patient today: 1 Complexity of care: Moderate E&M Codes Rounding: Inpt-Moderate/[id number]
[2016-11-02 06:57] VITALS: BP 157/101
[2016-11-02 10:20] VITALS: BP 138/105
[2016-11-02 14:36] VITALS: BP 146/99
[2016-11-02 18:08] VITALS: BP 154/95
[2016-11-02 20:29] VITALS: BP 144/87
[2016-11-03 01:49] VITALS: BP 139/96
[2016-11-03 07:05] VITALS: BP 139/102
[2016-11-03 10:58] VITALS: BP 150/105
--- NOTE | 2016-11-03 11:06 | Discharge Summary ---
Discharge Summary Report Admit Date 10/29/16 Discharge Date 11/03/16 Admission Diagnosis 1. Asthma exacerbation 2. Respiratory failure 3. Illicit drug use-heroin/methamphetamine Discharge Diagnosis 1. Asthma exacerbation 2. Respiratory failure 3. Illicit drug use-heroin/methamphetamine Brief History The patient is a 41-year-old white male with a significant past medical history of illicit drug use heroin/methamphetamine, nicotine dependence-smoking, who presented to [facility] emergency department secondary to complaints of shortness of breath. Evaluation at that time was consistent with status asthmaticus/reactive airway disease with associated respiratory failure requiring intubation with mechanical ventilation. Secondary to the above, the patient was admitted by Edilson Guadarrama M.D. for further evaluation and treatment. For other history present illness, past medical history, family history, social history, review of systems, and admission physical examination please see the patient's history and physical examination and ER visit note in the patient's medical record. Hospital Course The following problems and their management were noted during the patient's hospitalization: 1. Asthma exacerbation The patient presented with findings of asthma exacerbation. This was severe requiring intubation with mechanical ventilation. The patient was rapidly weaned from mechanical ventilation. He was treated with IV corticosteroids, inhalation bronchodilators in the form of albuterol and Atrovent. At the time of discharge he was weaned from all supplement oxygen. His respiratory status was dramatically improved. He had minimal expiratory wheezes on discharge. He was discharged on steroid taper along with DuoNeb one via nebulizer every 6 hours, albuterol 2.5 mg via nebulizer every 3 hours when necessary shortness of breath, Combivent Respimat one inhalation 4 times a day when not using DuoNeb, and albuterol MDI when not using albuterol nebulizer. He will follow up with his PCP next week 2. Respiratory failure The patient presented with status asthmaticus with associated respiratory failure. He required intubation with mechanical ventilation. He was rapidly weaned from mechanical ventilation. Status as noted above during his hospitalization and discharge. 3. Illicit drug use-heroin/methamphetamine The patient has a history of illicit drug use heroin/methamphetamine. He was placed on opiate replacement therapy in the form of methadone 20 mg by mouth 3 times a day. He had no significant opiate withdrawal symptoms at discharge. We 'll arrange for enrollment in methadone treatment program with [facility] if the patient is unable to secure position in inpatient drug treatment program. He was discharged with a 3 days prescription of methadone 20 mg by mouth 3 times a day. General Appearance Alert, Oriented X3, Cooperative, No acute distress HEENT PERRLA, EOMI, Mucous membran moist/pink Lungs Normal air movement, Minimal expiratory wheezes Cardiovascular Normal S1, Normal S2, No murmurs, Gallops, Rubs Abdomen Normal bowel sounds, Soft, No tenderness Neurological Strength at 5/5 X4 ext, Cranial nerves 3-12 NL Psych/Mental Status Mental status NL, Mood NL Discharge Instructions/Meds For other recommendations regarding discharge diet, activity, followup, and discharge medications please see the patient's discharge instructions. Discharge condition: Good, improved Greater than 30 min. was spent in the patient's discharge preparation including discharge interview and physical examination, progress note, discharge instructions, and discharge summary The patient was interviewed and examined on the day of discharge. E&M Codes Discharge: Inpt >30 min spent/[id number]
[2016-11-03] MEDS ORDERED: LISINOPRIL20 MG PO (11:23)
[2016-11-03] MEDS ORDERED: LOPRESSOR25 MG PO (11:23)
[2016-11-03] MEDS ORDERED: METHADONE HCL10 MG PO (11:26)
[2016-11-03] MEDS ORDERED: IPRATROPIUM BROMIDE/ IN (11:26)
--- NOTE | 2016-11-03 11:28 | Provider's Discharge Care Plan ---
Problem, Goal, Plan Problem List 1. Asthma exacerbation Goals: Improve disease control, Prevent disease progress Instructions: Follow up as directed, Take meds as directed 2. Illicit drug use Goals: Improve disease control, Improve function, Improved health/wellness, Prevent disease progress Instructions: Follow up as directed, Take meds as directed, Enroll in drug treatment program as discussed
[2016-11-03] MEDS ORDERED: NEBULIZER IN (12:59)
[2016-11-03] MEDS ORDERED: PREDNISONE20 MG PO (13:23)
== END 2016-11-03 13:30 | disposition home or self-care (01) | DRG 812 ==
LOC: ED SRH 07:08 → TRANS SRH 11:03 → CC SRH 11:24
PROVIDERS: ADMIT Emergency Medicine
PROC: 5A1945Z Respiratory Ventilation, 24-96 Consecutive Hours (ICD-10-PCS; principal; 2016-10-29)
PROC: 0T9B70Z Drainage of Bladder with Drainage Device, Via Natural or Artificial Opening (ICD-10-PCS; 2016-10-29)
PROC: 0BH17EZ Insertion of Endotracheal Airway into Trachea, Via Natural or Artificial Opening (ICD-10-PCS; 2016-10-29)
PROC: 5A09357 Assistance with Respiratory Ventilation, Less than 24 Consecutive Hours, Continuous Positive Airway Pressure (ICD-10-PCS; 2016-10-29)
PROC: 5A12012 Performance of Cardiac Output, Single, Manual (ICD-10-PCS; 2016-10-29)
PROC: 0D9670Z Drainage of Stomach with Drainage Device, Via Natural or Artificial Opening (ICD-10-PCS; 2016-10-29)
DX: T43.621A Poisoning by amphetamines, accidental (unintentional), initial encounter (principal); J45.42 Moderate persistent asthma with status asthmaticus; R09.2 Respiratory arrest; J96.00 Acute respiratory failure, unspecified whether with hypoxia or hypercapnia; F11.20 Opioid dependence, uncomplicated; F15.10 Other stimulant abuse, uncomplicated; F17.210 Nicotine dependence, cigarettes, uncomplicated

== ENCOUNTER 2016-11-08 19:10 | Emergency (ER) | payer OTHER ==
[~2016-11-08 19:10] MED LIST changes: +IPRATROPIUM BROMIDE/ IN; +LISINOPRIL20 MG PO; +LOPRESSOR25 MG PO; +NEBULIZER IN
--- NOTE | 2016-11-08 20:54 | DIAGNOSTIC IMAGING REPORT ---
PROCEDURE: XR CHEST 2 VIEW INDICATION: CHEST PAIN TECHNIQUE: PA and lateral view. COMPARISON: Chest x-ray 10/30/2016. FINDINGS: Lungs are clear. Cardiovascular structures are normal. Laparoscopic gastric band in place. Bony thorax is unremarkable. IMPRESSION: 1. Negative chest.
--- NOTE | 2016-11-08 21:06 | ED NURSING NOTES ---
Clinical Report - Nurses [facility] [address] [place] [address] 11/08/2016 19:10 Patient: PAWEL XAVIER TRIAGE Triage time 19:23. Chief Complaint: SKIN PROBLEM and BOIL. --19:30 Nikole Stephens R.N. 19:23 11/08/16. BP: 136/111 taken on the left arm, while lying. HR: 121. RR: 20. O2 saturation: 98%. Temp: 98.1 F (oral). Pain level now: 04/25. --19:30 Nikole Stephens R.N. Weight: 79.3 kg. Height/Length: 74 inches. BMI: 22.5. --19:30 Nikole Stephens R.N. Medications Albuterol Sulfate Inhalation. --19:25 Nikole Stephens R.N. Allergies Amoxicillin. --19:25 Nikole Stephens R.N. History Arrived by private vehicle, and accompanied by friend. Primary physician (none). Reported as located on the left buttock (left buttocks). Onset. (last week). It is described as painful. He has had a headache. PAST MEDICAL HX: Asthma. Immunizations: up-to-date. SOCIAL HX: Never smoker. History of drug use: heroin, methamphetamines. Recently used drugs today. (smoked about 8 hours ago). No alcohol use. ( pt reports smoking herion yesterday and meth today, c/o CP at this time as well, very anxious.). --19:30 Nikole Stephens R.N. PROBLEMS: Respiratory Arrest. Status Asthmaticus. Cardiac Arrest. Fever. Lifestyle / Substance Problems. Abscess. Lung Disease. Ureterolithiasis. Substance Abuse. Cellulitis. Infections. Last Tetanus. Paronychia. Hives. Allergic Reaction. Contusion. Crush Injury, Lower Extremity. Hypertension. Immunizations. Bronchitis. Laceration. Tetanus Status. Narcotic Withdrawal. Nephrolithiasis. --19:57 Jamie Coronado Bronchitis [RuleOut]. --19:57 Jamie Coronado ADDITIONAL SURGERIES: Adenoidectomy. Appendectomy. Bariatric Surgery. Fracture Repair. Lithotripsy. Pyloric Stenosis Surgery. Tonsillectomy. --19:57 Jamie Coronado Interventions ID band on patient. --19:30 Nikole Stephens R.N. PHYSICAL ASSESSMENT Ambulatory to room. GENERAL / NEURO / PSYCH: Alert. Appears in pain and anxious. Oriented X 4. HEENT: Pupils equal, round and reactive to light. RESPIRATORY: Respirations not labored. CVS: Cardiac rhythm: sinus tachycardia. Capillary refill less than 2 seconds. Pulses within normal limits. SKIN: Skin is intact, warm and dry. Tenderness on the left buttock- associated with erythema and swelling- abscess. Erythema present. --19:32 Nikole Stephens R.N. NURSING PROGRESS NOTES Two patient identifiers checked. Call light placed in reach. Side rails up x 1. Bed placed in lowest position. Brakes of bed on. --19:32 Nikole Stephens R.N. I & D: Incision and Drainage of abscess performed by PA. Assisted by one nurse (emerson). The abscess is located on the left buttock. Preparation: Incision and Drainage tray set up with 1% lidocaine. Procedure: skin cleansed with Betadine; a large amount of pus was drained. Sample obtained for cultures. A dressing was applied. Total time of assist / procedure: 15 minutes. --19:35 Nikole Stephens R.N. Patient ready for evaluation- chart flagged. --19:35 Nikole Stephens R.N. Patient gowned. --19:35 Nikole Stephens R.N. 19:36 11/08/2016 Lidocaine Injection Injectable 2 % given. Allergies verified and confirmed 5 rights. (at bedside for PA use). --19:36 Nikole Stephens R.N. EKG time: (2000 PM). EKG was ordered, performed by a tech and shown to the ED physician. --20:05 JerelegTeresa jerome Applied dressing consisting of 4x4 gauze and telfa pad. Secured with tape. --20:08 Kat, Nikole, R.N. RESPIRATORY: No respiratory distress. Breath sounds normal. SKIN: Skin is warm and dry. Skin color within normal limits. --20:09 Nikole Stephens R.N. Patient transported to radiology by stretcher with tech. (20:01). Patient returned from radiology by stretcher with tech. (20:11). --20:11 Nikole Stephens R.N. 21:04 11/08/16. BP: 108/90 taken on the left arm, while lying. HR: 117 (regular, tachycardic and strong). RR: 18 (regular, unlabored and normal). O2 saturation: 100% on room air. Temp: 98.9 F (oral). Pain level now: 02/23. --21:05 Nikole Stephens R.N. Overall patient status is the same. GENERAL / NEURO / PSYCH: The patient reports pain still present. Location identified as the chest. Described as moderate in severity. RESPIRATORY: No respiratory distress. Breath sounds normal. SKIN: Skin is warm and dry. Skin color within normal limits. --21:06 Nikole Stephens R.N. ( pt's mother, Mily, marni. call transferred to portable phone & taken to pt to speak to her.). --21:10 Martha Segura R.N. DISPOSITION / DISCHARGE Departure time: 2115. Condition at departure: improved. No learning barriers present. Discharge instructions provided and reviewed with the patient. Reviewed medication(s) side effects, precautions, dosing and course information. Prescription(s) given to the patient. Patient verbalized understanding. Written instructions provided in Serbian. The patient was discharged home and accompanied by friends. He left the Emergency Department ambulatory and via private vehicle. Driving (friends). --21:21 Nikole Stephens R.N. 21:16 11/08/16. BP: 124/89. HR: 110 (regular and tachycardic). RR: 18. O2 saturation: 98% on room air. Temp: deferred. Pain level now: 10/24. --21:21 Nikole Stephens R.N. Locked/Released at 11/08/2016 21:21 by Nikole Stephens R.N.
--- NOTE | 2016-11-08 21:06 | ED ORDER SUMMARY ---
..... Patient: PAWEL XAVIER OrderSheet [facility] VisitID: [id number] [place] [address] 41y, M Registration Date/Time: 11/08/2016 ORDER SHEET Weight: 79.3 kg Allergies: Amoxicillin GENERAL ORDERS: Culture, Wound Deep (Buttock) (L buttock) Urgent (19:27 11/08/2016 HBivens A.R.N.P.) (19:35 CBradburn R.N.) I&D Tray (19:27 11/08/2016 HBivens A.R.N.P.) (19:35 CBradburn R.N.) Dress Wounds (19:27 11/08/2016 HBivens A.R.N.P.) (Ack 19:45 AMcQuoid ER Tech1) (20:07 CBradburn R.N.) Chest 2V Urgent (19:43 11/08/2016 HBivens A.R.N.P.) (Ack 19:45 AMcQuoid ER Tech1) (20:11 CBradburn R.N.) EKG - ER Stat (19:43 11/08/2016 HBivens A.R.N.P.) (Ack 19:45 AMcQuoid ER Tech1) (20:04 CHategekimana) MEDICATION ORDERS: Lidocaine Injection 1% plain (NOW) (19:26 11/08/2016 HBivens A.R.N.P.) (19:36 CBradburn R.N.) IV FLUIDS: ORDER SHEET NOTES: [Electronically signed by Nikole Stephens R.N. (21:21 11/08/2016)] [Electronically signed by Brianna Beard.R.N.P. (22:08 11/08/2016)] [Electronically locked/signed by Nikole Stephens R.N. (21:21 11/08/2016)]
--- NOTE | 2016-11-08 21:06 | ED ORDER SUMMARY ---
..... Patient: PAWEL XAVIER OrderSheet [facility] VisitID: [id number] [place] [address] 41y, M Registration Date/Time: 11/08/2016 ORDER SHEET Weight: 79.3 kg Allergies: Amoxicillin GENERAL ORDERS: Culture, Wound Deep (Buttock) (L buttock) Urgent (19:27 11/08/2016 HBivens A.R.N.P.) (19:35 CBradburn R.N.) I&D Tray (19:27 11/08/2016 HBivens A.R.N.P.) (19:35 CBradburn R.N.) Dress Wounds (19:27 11/08/2016 HBivens A.R.N.P.) (Ack 19:45 AMcQuoid ER Tech1) (20:07 CBradburn R.N.) Chest 2V Urgent (19:43 11/08/2016 HBivens A.R.N.P.) (Ack 19:45 AMcQuoid ER Tech1) (20:11 CBradburn R.N.) EKG - ER Stat (19:43 11/08/2016 HBivens A.R.N.P.) (Ack 19:45 AMcQuoid ER Tech1) (20:04 CHategekimana) MEDICATION ORDERS: Lidocaine Injection 1% plain (NOW) (19:26 11/08/2016 HBivens A.R.N.P.) (19:36 CBradburn R.N.) IV FLUIDS: ORDER SHEET NOTES: [Electronically signed by Nikole Stephens R.N. (21:21 11/08/2016)] [Electronically signed by Brianna Beard.R.N.P. (22:08 11/08/2016)] [Electronically locked/signed by Nikole Stephens R.N. (21:21 11/08/2016)]
--- NOTE | 2016-11-08 21:06 | ED CLINICAL REPORT ---
Clinical Report - Physicians/Mid Levels [facility] [address] [place] [address] 11/08/2016 19:10 Patient: PAWEL XAVIER Time Seen: 19:23; initial patient contact, initial documentation, patient care assumed. Arrived- By private vehicle. Historian- patient. HISTORY OF PRESENT ILLNESS Chief Complaint: LESION, BOIL and TENDER AREA. This started about 1 weeks ago and is still present and worsening. (attempted to squeeze it, no better). It is described as painful. It has been located on the left buttocks. No cause has been identified. Similar symptoms previously: Frequently, milder. Recent medical care: The patient was seen recently and hospitalized. REVIEW OF SYSTEMS No fever, cough or difficulty breathing. He complains of moderate, sharp, stabbing central chest pain, currently moderate. No radiation, modifying factors or associated symptoms. All systems otherwise negative, except as recorded above. PAST HISTORY See nurses notes. PROBLEMS: Fever. Lifestyle / Substance Problems. Abscess. Lung Disease. Ureterolithiasis. Substance Abuse. Cellulitis. Infections. Paronychia. Hives. Allergic Reaction. Asthma. Contusion. Crush Injury, Lower Extremity. Hypertension. Bronchitis. Laceration. Narcotic Withdrawal. Nephrolithiasis. --08:01 Shirley Braxton R.N. Bronchitis [RuleOut]. --08:01 Shirley Braxton R.N. ADDITIONAL SURGERIES: Adenoidectomy. Appendectomy. Bariatric Surgery. Fracture Repair. Lithotripsy. Pyloric Stenosis Surgery. Tonsillectomy. --08:01 Shirley Braxton R.N. SOCIAL HISTORY Never smoker. History of heavy drug use: heroin, methamphetamines. Recently used drugs today. Under influence in ED. No alcohol use. No recent travel. Is a local resident. FAMILY HISTORY Negative. ADDITIONAL NOTES The nursing notes have been reviewed with agreement regarding the chief complaint, HPI, ROS, PMH and patient medications and allergies. PHYSICAL EXAM Vital Signs: 11/08/2016 19:23 BP: 136/111. HR: 121. RR: 20. O2 saturation: 98%. Temp: 98.1 F. Pain level now: 04/25. Have been reviewed as abnormal and appear to be correct. Hypertensive. Tachycardic. Respiratory rate normal. Temperature normal. Oxygen saturation normal. Appearance: Alert. Oriented X3. No acute distress. Anxious. Neck: Neck supple. Respiratory: No respiratory distress. Skin: Skin warm and dry. Abnormal skin color. No rash. Normal skin turgor. Single large abscess with drainage and cellulitis to left buttock. No fluctuance or pointing. Extremities: Normal external inspection. Extremities nontender. Neuro: Oriented X 3. No motor deficit. No sensory deficit. LABS, X-RAYS, AND EKG EKG: EKG time: (1999). No acute process. No acute ischemia. Rate: 116. Regular narrow-complex tachycardia (ventricular rate 116). Sinus tachycardia. Normal EKG. The study has been interpreted contemporaneously by me (and dr mayes). The EKG appears to be a good tracing. Interpretation time: 2001. Chest X-ray: Normal Chest X-Ray. (IMPRESSION: 1. Negative chest. Electronically Final signed by:Russell Archer MD 11/08/2016 8:53:57 PM). The X-rays were interpreted by the radiologist and contemporaneously by me. PROGRESS AND PROCEDURES Incision & Drainage of Abscess: The abscess is located in the left buttock. The risks of the procedure, benefits and alternatives were explained. Consent was obtained. Local anesthesia provided using 1% lidocaine. Skin cleansed with Betadine. The abscess was incised with a #11 surgical blade. A large amount of pus was drained. Cavity was irrigated with saline and packed with gauze. Sample obtained for cultures. Estimated blood loss: 30 mL. ( probed to break up inoculates and packed with 1/4 inch iodoform packing, not as much probing or packing done due to pt movement and grabbing back there during procedure, but otherwise pt tolerated procedure well). Patient counseled in person regarding the patient's stable condition, test results and diagnosis. 21:02. Differential Diagnosis: Other possible considerations: substance abuse, abscess, cellulitis, mrsa. Above considerations are based on history, physical exam, reassessment, X-Ray data and EKG. Differential diagnosis was discussed with patient. Disposition: Discharged home in good and improved condition (21:06). Condition: good and stable. CLINICAL IMPRESSION Single deep abscess with incision and drainage (L Buttock). Chest wall pain .12 lead EKG performed. INSTRUCTIONS Warnings: GENERAL WARNINGS: Return or contact your physician immediately if your condition worsens or changes unexpectedly, if not improving as expected, or if other problems arise. Specifically return if problem worsens. Prescription Medications: Bactrim DS 800 mg / 160 mg: take 1 tablet orally every 12 hours for 10 days. No refill. Motrin 800 mg tablets: take 1 tablet orally every 8 hours as needed for pain. Dispense thirty (30). No refills. Substitution is permissible. Follow-up: Follow up with your doctor in two days for wound check and packing removal. Call for an appointment. Summary of care provided to patient. Understanding of the discharge instructions verbalized by patient. (Electronically signed by Brianna Beard A.R.N.P. 11/08/2016 22:08)
--- NOTE | 2016-11-08 22:08 | ED MED RECONCILIATION SUMMARY ---
Patient: PAWEL XAVIER Medication Reconciliation Report [facility] VisitID: [id number] [place] [address] 41y, M Registration Date/Time: 11/08/2016 Weight: 79.3 kg Height/Length: 74 in. BMI: 22.5 ALLERGIES: Amoxicillin The patient's Home Medications are listed below: THE FOLLOWING MEDICATIONS NEED TO BE RECONCILED: Albuterol Sulfate Inhalation The source(s) of the original Home Medication information: Not obtained. The following Medications were given to the patient in the Emergency Department: Lidocaine [Injection] Injection 2 %, administered: 11/08/2016 7:36:00 PM The following Medications were prescribed to the patient: Bactrim DS 800 mg / 160 mg: take 1 tablet orally every 12 hours for 10 days. No refill. -- Brianna Beard, A.R.N.P. Motrin 800 mg tablets: take 1 tablet orally every 8 hours as needed for pain. Dispense thirty (30). No refills. Substitution is permissible. -- Brianna Beard, Adam.R.N.P.
--- NOTE | 2016-11-08 22:08 | ED DISCHARGE INSTRUCTIONS ---
Patient: PAWEL XAVIER General Instructions [facility] VisitID: [id number] [place] [address] 41y, M Registration Date/Time: 11/08/2016 Single deep abscess with incision and drainage (L Buttock). Chest wall pain .12 lead EKG performed. INSTRUCTIONS Warnings: GENERAL WARNINGS: Return or contact your physician immediately if your condition worsens or changes unexpectedly, if not improving as expected, or if other problems arise. Specifically return if problem worsens. Prescription Medications: Bactrim DS 800 mg / 160 mg: take 1 tablet orally every 12 hours for 10 days. No refill. Motrin 800 mg tablets: take 1 tablet orally every 8 hours as needed for pain. Dispense thirty (30). No refills. Substitution is permissible. Follow-up: Follow up with your doctor in two days for wound check and packing removal. Call for an appointment. Summary of care provided to patient. Understanding of the discharge instructions verbalized by patient. ADDITIONAL INFORMATION Abscess [Incision & Drainage] An abscess (sometimes called a boil) occurs when bacteria get trapped under the skin and begin to grow. Pus forms inside the abscess as the body responds to the bacteria. An abscess can occur with an insect bite, ingrown hair, blocked oil gland, pimple, cyst, or puncture wound. Treatment of your abscess has required an incision to drain the pus. If the abscess pocket was large, a gauze packing may have been inserted. This will need to be removed and possibly replaced on your next visit. Antibiotics are not required in the treatment of a simple abscess, unless the infection is spreading into the skin around the wound (known as cellulitis). Healing of the wound will take about one to two weeks depending on the size of the abscess. Healthy tissue will grow from the bottom and sides of the opening until it seals over. Home Care: The wound may drain for the first two days. Cover the wound with a clean dry dressing. If the dressing becomes soaked with blood or pus, change it. If a gauze packing was placed inside the abscess cavity, you may be advised to remove it yourself. You may do this in the shower. Once the packing is removed, you should wash the area in the shower or bath 3 to 4 times a day, until the skin opening has closed. If you were prescribed antibiotics, take them as directed until they are all gone. You may use acetaminophen (Tylenol) or ibuprofen (Motrin, Advil) to control pain, unless another pain medicine was prescribed. [ NOTE: If you have liver disease or ever had a stomach ulcer, talk with your doctor before using these medicines.] Follow Up with your doctor as advised by our staff. If a gauze packing was inserted in your wound, it should be removed in 1-2 days. Check your wound every day for the signs of worsening infection listed below. Get Prompt Medical Attention if any of the following occur: Increasing redness or swelling Red streaks in the skin leading away from the wound Increasing local pain or swelling Continued pus draining from the wound two days after treatment Fever of 100.4F (38C) or higher, or as directed by your healthcare provider Cellulitis You have an infection of the skin known as cellulitis. This usually starts with a scrape, cut, insect bite, blister or other opening in the skin which becomes infected. This is a serious condition. It must be watched closely to be sure the infection is not spreading. With antibiotic treatment, the size of the red area will gradually shrink in size until the skin returns to normal. This will take 7-10 days. The red area should never increase in size once the antibiotic medicine has been started. Occasionally, an infection will be resistant to one antibiotic and another one will have to be used. Home Care: 1) Limit the use of the affected part, since excess movement can cause the infection to spread. 2) If the infection is on your leg, walk as little as possible during the first few days of the treatment. Keep your leg elevated while sitting. This will reduce swelling. 3) Take all of the antibiotic medicine exactly as directed until it is gone. Be careful not to miss any doses, especially during the first seven days. Follow Up with your doctor or this facility as directed. Check the infected area daily for the warning signs listed below. Get Prompt Medical Attention if any of the following occur: -- Spreading area of redness -- Increasing swelling or pain -- Appearance of pus or drainage -- Fever over 100.4 F (38.0 C) oral, or over 101.4 F (38.6 C) rectal, after two days on antibiotics Staph Infection (MRSA) "Staph" is the short name for the common bacteria called "staphylococcus aureus". Staph bacteria are often present on the skin without causing an infection. If it gets under the skin an infection occurs. This causes redness, tenderness, swelling and sometimes fluid drainage. MRSA stands for "Methicillin-Resistant Staph Aureus". Unlike a common staph infection, MRSA bacteria are resistant to the usual antibiotics and harder to treat. Also, MRSA is more toxic than common staph bacteria. It can spread quickly throughout the body and cause a life-threatening illness. MRSA is spread to others by direct physical contact with the bacteria. MRSA can also be transmitted from items contaminated by a person who has the bacteria, such as bandages, towels, bed sheets, or sports equipment. It is not spread through the air. Once you have a MRSA skin infection, you are at risk of having it recur in the future. If MRSA infection is suspected, the doctor may take a wound culture to confirm the diagnosis. Any abscess will be drained. One or sometimes two antibiotics that work against MRSA will be prescribed. Home Care: 1) Take any antibiotics prescribed exactly as directed until they are gone. 2) Follow the same washing procedures as outlined for Household Members below. 3) Keep draining wounds covered with clean, dry bandages. Change dressings as they become soiled. 4) You and those in contact with you should wash their hands frequently with soap and warm water or use an alcohol-based hand live in housekeeper nanny. Do this after each time you change the bandage or touch the wound. 5) Avoid sharing personal items such as towels, washcloths, razors, clothing, or uniforms. Wash soiled sheets, towels or clothes in hot water with laundry detergent. Use an automatic clothes dryer set on high to kill any remaining bacteria. 6) Remove any artificial nails and nail thai. 7) If you use a gym, wipe down equipment before and after each use. Treatment Of Household Members If you have been diagnosed with possible MRSA infection, those living with you are at higher risk of carrying the bacteria on their skin or in their nose, even if there is no sign of infection. Bacteria must be removed from the skin of all household members (including you) at the same time, so that it is not passed back and forth. Advise them to remove the bacteria as follows: Wash your whole body (scalp to toes) daily for five days with Hibiclens (chlorhexidine). Scrub fingernails with a brush for one minute twice a day. If any skin infections are present (boils, abscess, infected cut) these must be treated by a doctor. Washing alone will not treat a MRSA infection. Clean counter tops and children's toys; do not share personal items such as toothbrush and razors. It is okay to share glasses, plates, utensils. If antibiotic ointment was prescribed use it as directed. Follow Up with your doctor or as advised by our staff. If a wound culture was taken, call as directed in two days to obtain the results. If the culture result is positive for MRSA, tell medical personnel in the future that you were treated for this type of infection. Get Prompt Medical Attention if any of the following occur: -- Increasing redness, swelling or pain -- Red streaks in the skin around the wound -- Weakness or dizziness -- New appearance of pus or drainage from the wound -- New fever over 100.4 F (38.0 C) Chest Wall Pain: Costochondritis The chest pain that you have had today is caused by Costochondritis. This condition is due to an inflammation of the cartilage joining the ribs to the breastbone. It is not caused by heart or lung problems. Although the exact cause for costochondritis is not known, it often occurs during times of emotional stress. It can be painful, but it is not dangerous. It usually disappears within one to two weeks, but may recur. Rarely, a more serious condition may cause symptoms similar to costochondritis; therefore, watch for the warning signs listed below. Home Care: If you feel that emotional stress is a cause of your condition, try to identify sources of that stress. It may not be obvious! Learn ways to deal with the stress in your life such as regular exercise, muscle relaxation, meditation, or simply taking time out for yourself. For more information about this, consult your doctor or go to a local bookstore and review books and tapes available on the subject of stress reduction. You may use acetaminophen (Tylenol) or ibuprofen (Motrin, Advil) to control pain, unless another pain medicine was prescribed. [ NOTE: If you have liver disease or ever had a stomach ulcer, talk with your doctor before using these medicines.] The use of heat (hot wet compress or heating pad) with or without local analgesic creams (Deep Heat Rub, Js Quick) will be helpful to reduce pain. Follow Up with your doctor as directed or sooner if you do not start to improve within the next two days. Get Prompt Medical Attention if any of the following occur: A change in the type of pain: if it feels different, becomes more severe, lasts longer, or spreads into your shoulder, arm, neck, jaw or back Shortness of breath or increased pain with breathing Weakness, dizziness, or fainting Cough with dark colored sputum (phlegm) or blood Abdominal pain Dark red or black stools Fever of 100.4F (38C) or higher, or as directed by your healthcare provider Sulfamethoxazole, Trimethoprim Oral tablet What is this medicine? SULFAMETHOXAZOLE; TRIMETHOPRIM or SMX-TMP (suhl fuh meth OK ayden zohl; trye METH oh prim) is a combination of a sulfonamide antibiotic and a second antibiotic, trimethoprim. It is used to treat or prevent certain kinds of bacterial infections. It will not work for colds, flu, or other viral infections. How should I use this medicine? Take this medicine by mouth with a full glass of water. Follow the directions on the prescription label. Take your medicine at regular intervals. Do not take it more often than directed. Do not skip doses or stop your medicine early. Talk to your project product manager regarding the use of this medicine in children. Special care may be needed. This medicine has been used in children as young as 2 months of age. What side effects may I notice from receiving this medicine? Side effects that you should report to your doctor or health direct care staffer as soon as possible: allergic reactions like skin rash or hives, swelling of the face, lips, or tongue breathing problems fever or chills, sore throat irregular heartbeat, chest pain joint or muscle pain pain or difficulty passing urine red pinpoint spots on skin redness, blistering, peeling or loosening of the skin, including inside the mouth unusual bleeding or bruising unusually weak or tired yellowing of the eyes or skin Side effects that usually do not require medical attention (report to your doctor or health direct care staffer if they continue or are bothersome): diarrhea dizziness headache loss of appetite nausea, vomiting nervousness What may interact with this medicine? Do not take this medicine with any of the following medications: aminobenzoate potassium dofetilide metronidazole This medicine may also interact with the following medications: FEMI inhibitors like benazepril, enalapril, lisinopril, and ramipril cyclosporine digoxin diuretics indomethacin medicines for diabetes methenamine methotrexate phenytoin potassium supplements pyrimethamine sulfinpyrazone tricyclic antidepressants warfarin What if I miss a dose? If you miss a dose, take it as soon as you can. If it is almost time for your next dose, take only that dose. Do not take double or extra doses. Where should I keep my medicine? Keep out of the reach of children. Store at room temperature between 20 to 25 degrees C (68 to 77 degrees F). Protect from light. Throw away any unused medicine after the expiration date. What should I tell my health care provider before I take this medicine? They need to know if you have any of these conditions: anemia asthma being treated with anticonvulsants if you frequently drink alcohol containing drinks kidney disease liver disease low level of folic acid or [id number] dehydrogenase poor nutrition or malabsorption porphyria severe allergies thyroid disorder an unusual or allergic reaction to sulfamethoxazole, trimethoprim, sulfa drugs, other medicines, foods, dyes, or preservatives or trying to get breast-feeding What should I watch for while using this medicine? Tell your doctor or health direct care staffer if your symptoms do not improve. Drink several glasses of water a day to reduce the risk of kidney problems. Do not treat diarrhea with over the counter products. Contact your doctor if you have diarrhea that lasts more than 2 days or if it is severe and watery. This medicine can make you more sensitive to the sun. Keep out of the sun. If you cannot avoid being in the sun, wear protective clothing and use a sunscreen. Do not use sun lamps or tanning beds/booths. Ibuprofen Oral tablet What is this medicine? IBUPROFEN (eye BYOO proe fen) is a non-steroidal anti-inflammatory drug (NSAID). It is used for dental pain, fever, headaches or migraines, osteoarthritis, rheumatoid arthritis, or painful monthly periods. It can also relieve minor aches and pains caused by a cold, flu, or sore throat. How should I use this medicine? Take this medicine by mouth with a glass of water. Follow the directions on the prescription label. Take this medicine with food if your stomach gets upset. Try to not lie down for at least 10 minutes after you take the medicine. Take your medicine at regular intervals. Do not take your medicine more often than directed. A special MedGuide will be given to you by the pharmacist with each prescription and refill. Be sure to read this information carefully each time. Talk to your project product manager regarding the use of this medicine in children. Special care may be needed. What side effects may I notice from receiving this medicine? Side effects that you should report to your doctor or health direct care staffer as soon as possible: allergic reactions like skin rash, itching or hives, swelling of the face, lips, or tongue black or bloody stools, blood in the urine or in vomit breathing problems changes in vision chest pain general ill feeling or flu-like symptoms nausea or vomiting redness, blistering, peeling or loosening of the skin, including inside the mouth slurred speech or weakness on one side of the body stomach pain unexplained weight gain or swelling unusually weak or tired yellowing of eyes or skin Side effects that usually do not require medical attention (report to your doctor or health direct care staffer if they continue or are bothersome): constipation or diarrhea dizziness gas or heartburn stomach upset What may interact with this medicine? Do not take this medicine with any of the following medications: cidofovir ketorolac methotrexate pemetrexed This medicine may also interact with the following medications: alcohol aspirin diuretics lithium other drugs for inflammation like prednisone warfarin What if I miss a dose? If you miss a dose, take it as soon as you can. If it is almost time for your next dose, take only that dose. Do not take double or extra doses. Where should I keep my medicine? Keep out of the reach of children. Store at room temperature between 15 and 30 degrees C (59 and 86 degrees F). Keep container tightly closed. Throw away any unused medicine after the expiration date. What should I tell my health care provider before I take this medicine? They need to know if you have any of these conditions: asthma cigarette smoker drink more than 3 alcohol containing drinks a day heart disease or circulation problems such as heart failure or leg edema (fluid retention) high blood pressure kidney disease liver disease stomach bleeding or ulcers an unusual or allergic reaction to ibuprofen, aspirin, other NSAIDS, other medicines, foods, dyes, or preservatives or trying to get breast-feeding What should I watch for while using this medicine? Tell your doctor or healthcare professional if your symptoms do not start to get better or if they get worse. This medicine does not prevent heart attack or stroke. In fact, this medicine may increase the chance of a heart attack or stroke. The chance may increase with longer use of this medicine and in people who have heart disease. If you take aspirin to prevent heart attack or stroke, talk with your doctor or health direct care staffer. Do not take other medicines that contain aspirin, ibuprofen, or naproxen with this medicine. Side effects such as stomach upset, nausea, or ulcers may be more likely to occur. Many medicines available without a prescription should not be taken with this medicine. This medicine can cause ulcers and bleeding in the stomach and intestines at any time during treatment. Ulcers and bleeding can happen without warning symptoms and can cause . To reduce your risk, do not smoke cigarettes or drink alcohol while you are taking this medicine. You may get drowsy or dizzy. Do not drive, use machinery, or do anything that needs mental alertness until you know how this medicine affects you. Do not stand or sit up quickly, especially if you are an older patient. This reduces the risk of dizzy or fainting spells. This medicine can cause you to bleed more easily. Try to avoid damage to your teeth and gums when you brush or floss your teeth. You have been given the following additional information: Abscess, Incision And Drainage Cellulitis MRSA Skin Infection, Suspected Or Confirmed Chest Wall Pain, Costochondritis Sulfamethoxazole, Trimethoprim Oral tablet Ibuprofen Oral tablet (Electronically signed by Brianna Beard A.R.N.P. 11/08/2016 22:08)
--- NOTE | 2016-11-08 22:08 | ED MAR SUMMARY ---
..... Medication Administration Record [address] [place] [address] Patient: PAWEL XAVIER Visit ID: [id number] 41y, M Weight: 79.3 kg Height/Length: 74 in BMI: 22.5 ALLERGIES: Amoxicillin Given 19:36 11/08/2016 Nikole Stephens R.N. Medication Administered: LIDOCAINE [INJECTION], Dose: 2 % Injectable Injection. Medication Ordered: Lidocaine Injection 1% plain (NOW).
--- NOTE | 2016-11-08 22:08 | ED MAR SUMMARY ---
..... Medication Administration Record [address] [place] [address] Patient: PAWEL XAVIER Visit ID: [id number] 41y, M Weight: 79.3 kg Height/Length: 74 in BMI: 22.5 ALLERGIES: Amoxicillin Given 19:36 11/08/2016 Nikole Stephens R.N. Medication Administered: LIDOCAINE [INJECTION], Dose: 2 % Injectable Injection. Medication Ordered: Lidocaine Injection 1% plain (NOW).
--- NOTE | 2016-11-08 22:08 | ED MED RECONCILIATION SUMMARY ---
Patient: PAWEL XAVIER Medication Reconciliation Report [facility] VisitID: [id number] [place] [address] 41y, M Registration Date/Time: 11/08/2016 Weight: 79.3 kg Height/Length: 74 in. BMI: 22.5 ALLERGIES: Amoxicillin The patient's Home Medications are listed below: THE FOLLOWING MEDICATIONS NEED TO BE RECONCILED: Albuterol Sulfate Inhalation The source(s) of the original Home Medication information: Not obtained. The following Medications were given to the patient in the Emergency Department: Lidocaine [Injection] Injection 2 %, administered: 11/08/2016 7:36:00 PM The following Medications were prescribed to the patient: Bactrim DS 800 mg / 160 mg: take 1 tablet orally every 12 hours for 10 days. No refill. -- Brianna Beard, A.R.N.P. Motrin 800 mg tablets: take 1 tablet orally every 8 hours as needed for pain. Dispense thirty (30). No refills. Substitution is permissible. -- Brianna Beard, Adam.R.N.P.
== END 2016-11-08 21:16 | disposition home or self-care (01) ==
LOC: ED SRH 19:10
DX: L02.31 Cutaneous abscess of buttock (principal); R07.89 Other chest pain; J45.909 Unspecified asthma, uncomplicated; I10 Essential (primary) hypertension
CPT/HCPCS: 90070; 90131; 90309; 90470; 91672

== ENCOUNTER 2016-12-26 20:05 | Emergency (ER) | payer OTHER ==
--- NOTE | 2016-12-26 21:25 | DIAGNOSTIC IMAGING REPORT ---
PROCEDURE: XR CHEST 2 VIEW INDICATION: CHEST PAIN TECHNIQUE: PA and lateral views. COMPARISON: Compared to chest x-ray on 11/08/2016. FINDINGS: Lungs are clear. Heart and mediastinum are normal. Thorax is normal. Status post laparoscopic gastric band. IMPRESSION: 1. Negative chest.
--- NOTE | 2016-12-26 21:56 | ED NURSING NOTES ---
Clinical Report - Nurses [facility] [address] [place] [address] 12/26/2016 20:06 Patient: PAWEL XAVIER TRIAGE Triage time 20:11. Acuity: LEVEL 3. Chief Complaint: SKIN LESION. --20:18 Nikole Stephens R.N. 20:11 12/26/16. BP: 155/95. HR: 89. RR: 18. O2 saturation: 96%. Temp: 98.3 F. Pain level now: 12/24. --20:18 Nikole Stephens R.N. Weight: 81.6 kg stated. Height/Length: 74 inches. BMI: 23.1. --20:12 Nikole Stephens R.N. Medications Albuterol Sulfate HFA Inhalation. --20:14 Nikole Stephens R.N. Allergies Amoxicillin. Definite Severe(rash) --20:14 Nikole Stephens R.N. History Arrived by private vehicle. Historian: patient. Accompanied by friend. Primary physician (none). Reported as generalized in location, located on the scalp, face, lips, neck, right arm, right thumb and right leg and located on the back. Onset was gradual. (about 10 ago). It is described as moderately painful. The patient has had a cough productive of yellow sputum (for 1 weeks). There has been a change from the baseline cough. PAST MEDICAL HX: Asthma. Immunizations: up-to-date. SOCIAL HX: History of drug use: heroin, methamphetamines. Recently used drugs yesterday. (daily smoking). No alcohol use. The patient was not exposed to tuberculosis, influenza, chicken pox, meningitis, MRSA, VRE, C-diff, SARS, Jacky flu, H1N1 flu, Ebola or MERS. ABUSE ASSESSMENT: No report of abuse. SELF HARM ASSESSMENT: A self harm assessment was performed. The patient answered "no" to the question "Have you recently felt down, depressed, or hopeless?", "Have you noticed less interest or pleasure in doing things?", "Do you have thoughts of harming or killing yourself?", "Are you here because you tried to hurt yourself?", "Have you ever tried to hurt yourself before today?", "Have you recently had thoughts about harming or killing others?" and "Do you have any dangerous items in your possession?". FALL RISK ASSESSMENT: Fall risk assessment completed. No fall risk identified. NUTRITIONAL RISK ASSESSMENT: The nutritional risk assessment revealed no deficiencies. FUNCTIONAL ASSESSMENT: Functional assessment: no impairments noted. LEARNING NEEDS ASSESSMENT: The learning needs assessment revealed no barriers. SKIN INTEGRITY ASSESSMENT: Skin integrity risk assessment completed. No skin integrity risk identified. --20:18 Nikole Stephens R.N. PROBLEMS: Chest Wall Pain. Respiratory Arrest. Status Asthmaticus. Cardiac Arrest. Fever. Lifestyle / Substance Problems. Abscess. Lung Disease. Ureterolithiasis. Substance Abuse. Cellulitis. Infections. Last Tetanus. Paronychia. Hives. Allergic Reaction. Asthma. Contusion. Crush Injury, Lower Extremity. Hypertension. Immunizations. Bronchitis. Laceration. Tetanus Status. Narcotic Withdrawal. Nephrolithiasis. --20:15 Nikole Stephens R.N. Bronchitis [RuleOut]. --20:15 Nikole Stephens R.N. ADDITIONAL SURGERIES: Adenoidectomy. Appendectomy. Bariatric Surgery. Fracture Repair. Lithotripsy. Pyloric Stenosis Surgery. Tonsillectomy. --20:15 Nikole Stephens R.N. Interventions ID band on patient. --20:18 Nikole Stephens R.N. PHYSICAL ASSESSMENT Ambulatory to room. GENERAL / NEURO / PSYCH: Alert. The patient does not appear to be in acute distress. Oriented X 4. HEENT: Pupils equal, round and reactive to light. Mucous membranes are pink. RESPIRATORY: Expiratory bilateral wheezes anteriorly and posteriorly. CVS: Capillary refill less than 2 seconds. Pulses within normal limits. GI / : Abdomen nontender. SKIN: Skin is warm and dry. Multiple small and medium-sized ulcerations with erythema and tenderness on the scalp, face, lips, back, right arm, right thumb and right leg. --20:21 Nikole Stephens R.N. NURSING PROGRESS NOTES Patient gowned. Two patient identifiers checked. Call light placed in reach. Side rails up x 1. Bed placed in lowest position. Brakes of bed on. Patient ready for evaluation- chart flagged. --20:21 Nikole Stephens R.N. ( RT at bedside). --20:40 Nikole Stephens R.N. 20:45 12/26/2016 Duoneb (Ipratropium-Albuterol) Neb TX Nebulizer 2 unit dose given. Given by the respiratory therapist. Allergies verified and confirmed 5 rights. --20:45 Nikole Stephens R.N. 20:55 12/26/2016 Duoneb Neb TX discontinued due to improvement in patient condition. --21:02 Nikole Stephens R.N. 21:42 12/26/16. BP: 142/93 taken on the left arm, while lying. HR: 93. RR: 18. O2 saturation: 99% on room air. Temp: deferred. Pain level now: 510. --21:46 Nikole Stephens R.N. The patient reports no complaints and he is calm and resting quietly. Overall patient status is improved- he states feels better. RESPIRATORY: No respiratory distress. Decreased breath sounds in the bases bilaterally. SKIN: Skin is warm and dry. Skin color within normal limits. Two patient identifiers checked. Call light placed in reach. Side rails up x 2. Bed placed in lowest position. Brakes of bed on. --21:46 Nikole Stephens R.N. 21:51 12/26/2016 Bactrim DS (Sulfamethoxazole-TMP DS) PO Tablets 1 tab given. Allergies verified and confirmed 5 rights. --21:51 Nikole Stephens R.N. DISPOSITION / DISCHARGE Departure time: 2206. Condition at departure: improved and stable. No learning barriers present. Discharge instructions provided and reviewed with the patient. Reviewed medication(s) side effects, precautions, dosing and course information. Prescription(s) given to the patient. Reviewed wound care instructions. Follow up contact number [phone]. Patient verbalized understanding. Written instructions provided in Danish. The patient was discharged home and unaccompanied at time of discharge. He left the Emergency Department ambulatory and via private vehicle. Driving (friend). --22:12 Nikole Stephens R.N. 22:05 12/26/16. BP: 128/71 taken on the left arm, while lying. HR: 110 (regular and tachycardic). RR: 18 (regular and unlabored). O2 saturation: 98% on room air. Temp: deferred. Pain level now: 11/23. --22:12 Nikole Stephens R.N. Locked/Released at 12/26/2016 22:12 by Nikole Stephens R.N.
--- NOTE | 2016-12-26 21:56 | ED CLINICAL REPORT ---
Clinical Report - Physicians/Mid Levels [facility] [address] [place] [address] 12/26/2016 20:06 Patient: PAWEL XAVIER Time Seen: 20:37 Anjum 12 2016. Arrived- By private vehicle. Historian- patient. HISTORY OF PRESENT ILLNESS Chief Complaint: SKIN RASH. This started 10 days and is still present. It is described as itchy and painful. It has been generalized in location and located on the face and trunk. It has not been located on the right upper extremity. (patient presents with skin rash over the last 10 days, with multiple lesions on his face, neck, scalp, right arm, left forearm. Patient has had worsening of his asthma symptoms over the last 2-3 days, no fevers, he has had a cough. Patient with history of heroin and meth use, smoking/substances. Patient last uses inhaler a few hours prior to arrival.). REVIEW OF SYSTEMS No fever, chills, sore throat, difficulty breathing or lump in throat. No headache, eye irritation, diarrhea or difficulty with urination. All systems otherwise negative, except as recorded above. PAST HISTORY Problems: Chest Wall Pain. Respiratory Arrest. Status Asthmaticus. Cardiac Arrest. Fever. Lifestyle / Substance Problems. Abscess. Lung Disease. Ureterolithiasis. Substance Abuse. Cellulitis. Infections. Last Tetanus. Paronychia. Hives. Allergic Reaction. Asthma. Contusion. Hypertension. Immunizations. Bronchitis. Laceration. Tetanus Status. Narcotic Withdrawal. Nephrolithiasis. Additional Surgeries: Adenoidectomy. Appendectomy. Bariatric Surgery. Fracture Repair. Lithotripsy. Pyloric Stenosis Surgery. Tonsillectomy. Medications: Albuterol Sulfate HFA Inhalation. Allergies: Amoxicillin. Definite Severe(rash). SOCIAL HISTORY History of drug use smokes heroin/ meth. No alcohol use. PHYSICAL EXAM Appearance: Alert. CVS: Normal heart rate and rhythm. Heart sounds normal. Respiratory: Chest tender. Wheezing present. Skin: Skin warm. (multiple small lesions of erythema, most prominent in his right radial aspect of his wrist, with mild exudate, none of these are of any palpable fluctuance. Lesions noted to his face, upper extremities.). Neuro: Oriented X 3. LABS, X-RAYS, AND EKG Chest X-ray: (IMPRESSION: 1. Negative chest. Electronically Final signed by:Bonilla Harp MD 12/26/2016 9:20:05 PM). PROGRESS AND PROCEDURES Course of Care: Patient's previous record reviewed, as well as previous CODE BLUE and CPR in progress upon arrival, and respiratory distress. Patient with improvement of symptoms in the emergency department, no indication for further workup. Vital signs improving with neb treatment. Patient recently started on Bactrim. Previous culture positive for staph, sensitive to Bactrim. He has no chest pain, his symptoms of his shortness of breath improved after nebulizer treatments i the emergency department. 12/26/2016 21:42 BP: 142/93. HR: 93. RR: 18. O2 saturation: 99%. Pain level now: 5/10. Disposition: Discharged. CLINICAL IMPRESSION Cellulitis of the scalp, head and right hand. INSTRUCTIONS (Medical ). Warnings: Further evaluation is necessary. Prescription Medications: Bactrim DS 800 mg / 160 mg: take 1 tablet orally every 12 hours for 10 days. No refill. Substitution is permissible. Medrol Dosepak: take according to package directions. Dispense one (1) dosepak. No refills. Substitution is permissible. (Electronically signed by Susanne Benoit P.A.-C 12/26/2016 22:10)
--- NOTE | 2016-12-26 21:56 | ED ORDER SUMMARY ---
..... Patient: PAWEL XAVIER OrderSheet [facility] VisitID: [id number] [place] [address] 41y, M Registration Date/Time: 12/26/2016 ORDER SHEET Weight: 81.6 kg (stated) Allergies: Amoxicillin GENERAL ORDERS: Chest 2V Urgent (20:37 12/26/2016 EKoroleva P.A.-C) (Ack 20:41 LMuller) (21:02 CBradburn R.N.) MEDICATION ORDERS: DuoNeb Neb Tx 2 unit doses (NOW) (20:26 12/26/2016 EKoroleva P.A.-C) (Ack 20:40 CBradburn R.N.) (20:45 CBradburn R.N.) Bactrim DS PO (Tablet 800-160 mg) 1 tab (NOW) (21:48 12/26/2016 EKoroleva P.A.-C) (Ack 21:50 CBradburn R.N.) (21:51 CBradburn R.N.) IV FLUIDS: ORDER SHEET NOTES: [Electronically signed by Susanne BenoitAElisabeth-Lydia (22:10 12/26/2016)] [Electronically signed by Nikole Stephens R.N. (22:12 12/26/2016)] [Electronically locked/signed by Nikole Stephens R.N. (22:12 12/26/2016)]
--- NOTE | 2016-12-26 21:56 | ED ORDER SUMMARY ---
..... Patient: PAWEL XAVIER OrderSheet [facility] VisitID: [id number] [place] [address] 41y, M Registration Date/Time: 12/26/2016 ORDER SHEET Weight: 81.6 kg (stated) Allergies: Amoxicillin GENERAL ORDERS: Chest 2V Urgent (20:37 12/26/2016 EKoroleva P.A.-C) (Ack 20:41 LMuller) (21:02 CBradburn R.N.) MEDICATION ORDERS: DuoNeb Neb Tx 2 unit doses (NOW) (20:26 12/26/2016 EKoroleva P.A.-C) (Ack 20:40 CBradburn R.N.) (20:45 CBradburn R.N.) Bactrim DS PO (Tablet 800-160 mg) 1 tab (NOW) (21:48 12/26/2016 EKoroleva P.A.-C) (Ack 21:50 CBradburn R.N.) (21:51 CBradburn R.N.) IV FLUIDS: ORDER SHEET NOTES: [Electronically signed by Susanne BenoitAElisabeth-Lydia (22:10 12/26/2016)] [Electronically signed by Nikole Stephens R.N. (22:12 12/26/2016)] [Electronically locked/signed by Nikole Stephens R.N. (22:12 12/26/2016)]
--- NOTE | 2016-12-26 21:56 | ED CLINICAL REPORT ---
Clinical Report - Physicians/Mid Levels [facility] [address] [place] [address] 12/26/2016 20:06 Patient: PAWEL XAVIER Time Seen: 20:37 Anjum 12 2016. Arrived- By private vehicle. Historian- patient. HISTORY OF PRESENT ILLNESS Chief Complaint: SKIN RASH. This started 10 days and is still present. It is described as itchy and painful. It has been generalized in location and located on the face and trunk. It has not been located on the right upper extremity. (patient presents with skin rash over the last 10 days, with multiple lesions on his face, neck, scalp, right arm, left forearm. Patient has had worsening of his asthma symptoms over the last 2-3 days, no fevers, he has had a cough. Patient with history of heroin and meth use, smoking/substances. Patient last uses inhaler a few hours prior to arrival.). REVIEW OF SYSTEMS No fever, chills, sore throat, difficulty breathing or lump in throat. No headache, eye irritation, diarrhea or difficulty with urination. All systems otherwise negative, except as recorded above. PAST HISTORY Problems: Chest Wall Pain. Respiratory Arrest. Status Asthmaticus. Cardiac Arrest. Fever. Lifestyle / Substance Problems. Abscess. Lung Disease. Ureterolithiasis. Substance Abuse. Cellulitis. Infections. Last Tetanus. Paronychia. Hives. Allergic Reaction. Asthma. Contusion. Hypertension. Immunizations. Bronchitis. Laceration. Tetanus Status. Narcotic Withdrawal. Nephrolithiasis. Additional Surgeries: Adenoidectomy. Appendectomy. Bariatric Surgery. Fracture Repair. Lithotripsy. Pyloric Stenosis Surgery. Tonsillectomy. Medications: Albuterol Sulfate HFA Inhalation. Allergies: Amoxicillin. Definite Severe(rash). SOCIAL HISTORY History of drug use smokes heroin/ meth. No alcohol use. PHYSICAL EXAM Appearance: Alert. CVS: Normal heart rate and rhythm. Heart sounds normal. Respiratory: Chest tender. Wheezing present. Skin: Skin warm. (multiple small lesions of erythema, most prominent in his right radial aspect of his wrist, with mild exudate, none of these are of any palpable fluctuance. Lesions noted to his face, upper extremities.). Neuro: Oriented X 3. LABS, X-RAYS, AND EKG Chest X-ray: (IMPRESSION: 1. Negative chest. Electronically Final signed by:Bonilla Harp MD 12/26/2016 9:20:05 PM). PROGRESS AND PROCEDURES Course of Care: Patient's previous record reviewed, as well as previous CODE BLUE and CPR in progress upon arrival, and respiratory distress. Patient with improvement of symptoms in the emergency department, no indication for further workup. Vital signs improving with neb treatment. Patient recently started on Bactrim. Previous culture positive for staph, sensitive to Bactrim. He has no chest pain, his symptoms of his shortness of breath improved after nebulizer treatments i the emergency department. 12/26/2016 21:42 BP: 142/93. HR: 93. RR: 18. O2 saturation: 99%. Pain level now: 5/10. Disposition: Discharged. CLINICAL IMPRESSION Cellulitis of the scalp, head and right hand. INSTRUCTIONS (Medical ). Warnings: Further evaluation is necessary. Prescription Medications: Bactrim DS 800 mg / 160 mg: take 1 tablet orally every 12 hours for 10 days. No refill. Substitution is permissible. Medrol Dosepak: take according to package directions. Dispense one (1) dosepak. No refills. Substitution is permissible. (Electronically signed by Susanne Benoit P.A.-C 12/26/2016 22:10)
--- NOTE | 2016-12-26 22:13 | ED DISCHARGE INSTRUCTIONS ---
Patient: PAWEL XAVIER General Instructions [facility] VisitID: [id number] [place] [address] 41y, M Registration Date/Time: 12/26/2016 Cellulitis of the scalp, head and right hand. INSTRUCTIONS (Medical ). Warnings: Further evaluation is necessary. Prescription Medications: Bactrim DS 800 mg / 160 mg: take 1 tablet orally every 12 hours for 10 days. No refill. Substitution is permissible. Medrol Dosepak: take according to package directions. Dispense one (1) dosepak. No refills. Substitution is permissible. ADDITIONAL INFORMATION Cellulitis You have an infection of the skin known as cellulitis. This usually starts with a scrape, cut, insect bite, blister or other opening in the skin which becomes infected. This is a serious condition. It must be watched closely to be sure the infection is not spreading. With antibiotic treatment, the size of the red area will gradually shrink in size until the skin returns to normal. This will take 7-10 days. The red area should never increase in size once the antibiotic medicine has been started. Occasionally, an infection will be resistant to one antibiotic and another one will have to be used. Home Care: 1) Limit the use of the affected part, since excess movement can cause the infection to spread. 2) If the infection is on your leg, walk as little as possible during the first few days of the treatment. Keep your leg elevated while sitting. This will reduce swelling. 3) Take all of the antibiotic medicine exactly as directed until it is gone. Be careful not to miss any doses, especially during the first seven days. Follow Up with your doctor or this facility as directed. Check the infected area daily for the warning signs listed below. Get Prompt Medical Attention if any of the following occur: -- Spreading area of redness -- Increasing swelling or pain -- Appearance of pus or drainage -- Fever over 100.4 F (38.0 C) oral, or over 101.4 F (38.6 C) rectal, after two days on antibiotics Facial Cellulitis You have an infection of the skin known as cellulitis. This usually starts with a scrape, cut or insect bite which becomes infected. It may also occur from an infected oil gland (pimple) or hair follicle. This can be a serious condition and must be watched closely to be sure the infection is not spreading. With antibiotic treatment, the size of the red area will gradually shrink in size until the skin returns to normal. This will take 7-10 days. The red area should never increase in size once the antibiotic medicine has been started. Occasionally, an infection will be resistant to one antibiotic and another one will have to be used. Home Care: 1) Take all of the antibiotic medicine exactly as prescribed until it is gone. Be careful not to miss any doses, especially during the first few days. 2) A cool compress (face cloth soaked in cool water) applied to the face may help with the swelling and pain. 3) You may use acetaminophen (Tylenol) or ibuprofen (Motrin, Advil) to control pain, unless another medicine was prescribed. [ NOTE : If you have chronic liver or kidney disease or ever had a stomach ulcer or GI bleeding, talk with your doctor before using these medicines.] (Aspirin should never be used in anyone under 18 years of age who is ill with a fever. It may cause severe liver damage.) Follow Up with your doctor or this facility as directed. Check the infected area daily for the warning signs listed below. Get Prompt Medical Attention if any of the following occur: -- Increasing area of redness, swelling or pain -- Pus or fluid drainage from the skin or the eye -- Fever of 100.5 F (38 C) oral or 101.5 F (38.6 C) rectal for more than two days on antibiotics -- Eyelid swells shut -- Increasing headache or neck pain -- Unusual drowsiness or confusion -- Convulsion (seizure) Sulfamethoxazole, Trimethoprim Oral tablet What is this medicine? SULFAMETHOXAZOLE; TRIMETHOPRIM or SMX-TMP (suhl fuh meth OK ayden zohl; trye METH oh prim) is a combination of a sulfonamide antibiotic and a second antibiotic, trimethoprim. It is used to treat or prevent certain kinds of bacterial infections. It will not work for colds, flu, or other viral infections. How should I use this medicine? Take this medicine by mouth with a full glass of water. Follow the directions on the prescription label. Take your medicine at regular intervals. Do not take it more often than directed. Do not skip doses or stop your medicine early. Talk to your crayon painter regarding the use of this medicine in children. Special care may be needed. This medicine has been used in children as young as 2 months of age. What side effects may I notice from receiving this medicine? Side effects that you should report to your doctor or health pet care worker as soon as possible: allergic reactions like skin rash or hives, swelling of the face, lips, or tongue breathing problems fever or chills, sore throat irregular heartbeat, chest pain joint or muscle pain pain or difficulty passing urine red pinpoint spots on skin redness, blistering, peeling or loosening of the skin, including inside the mouth unusual bleeding or bruising unusually weak or tired yellowing of the eyes or skin Side effects that usually do not require medical attention (report to your doctor or health pet care worker if they continue or are bothersome): diarrhea dizziness headache loss of appetite nausea, vomiting nervousness What may interact with this medicine? Do not take this medicine with any of the following medications: aminobenzoate potassium dofetilide metronidazole This medicine may also interact with the following medications: FEMI inhibitors like benazepril, enalapril, lisinopril, and ramipril cyclosporine digoxin diuretics indomethacin medicines for diabetes methenamine methotrexate phenytoin potassium supplements pyrimethamine sulfinpyrazone tricyclic antidepressants warfarin What if I miss a dose? If you miss a dose, take it as soon as you can. If it is almost time for your next dose, take only that dose. Do not take double or extra doses. Where should I keep my medicine? Keep out of the reach of children. Store at room temperature between 20 to 25 degrees C (68 to 77 degrees F). Protect from light. Throw away any unused medicine after the expiration date. What should I tell my health care provider before I take this medicine? They need to know if you have any of these conditions: anemia asthma being treated with anticonvulsants if you frequently drink alcohol containing drinks kidney disease liver disease low level of folic acid or [id number] dehydrogenase poor nutrition or malabsorption porphyria severe allergies thyroid disorder an unusual or allergic reaction to sulfamethoxazole, trimethoprim, sulfa drugs, other medicines, foods, dyes, or preservatives or trying to get breast-feeding What should I watch for while using this medicine? Tell your doctor or health pet care worker if your symptoms do not improve. Drink several glasses of water a day to reduce the risk of kidney problems. Do not treat diarrhea with over the counter products. Contact your doctor if you have diarrhea that lasts more than 2 days or if it is severe and watery. This medicine can make you more sensitive to the sun. Keep out of the sun. If you cannot avoid being in the sun, wear protective clothing and use a sunscreen. Do not use sun lamps or tanning beds/booths. You have been given the following additional information: Cellulitis Cellulitis, Facial Sulfamethoxazole, Trimethoprim Oral tablet (Electronically signed by Susanne Benoit P.A.-C 12/26/2016 22:10)
--- NOTE | 2016-12-26 22:13 | ED DISCHARGE INSTRUCTIONS ---
Patient: PAWEL XAVIER General Instructions [facility] VisitID: [id number] [place] [address] 41y, M Registration Date/Time: 12/26/2016 Cellulitis of the scalp, head and right hand. INSTRUCTIONS (Medical ). Warnings: Further evaluation is necessary. Prescription Medications: Bactrim DS 800 mg / 160 mg: take 1 tablet orally every 12 hours for 10 days. No refill. Substitution is permissible. Medrol Dosepak: take according to package directions. Dispense one (1) dosepak. No refills. Substitution is permissible. ADDITIONAL INFORMATION Cellulitis You have an infection of the skin known as cellulitis. This usually starts with a scrape, cut, insect bite, blister or other opening in the skin which becomes infected. This is a serious condition. It must be watched closely to be sure the infection is not spreading. With antibiotic treatment, the size of the red area will gradually shrink in size until the skin returns to normal. This will take 7-10 days. The red area should never increase in size once the antibiotic medicine has been started. Occasionally, an infection will be resistant to one antibiotic and another one will have to be used. Home Care: 1) Limit the use of the affected part, since excess movement can cause the infection to spread. 2) If the infection is on your leg, walk as little as possible during the first few days of the treatment. Keep your leg elevated while sitting. This will reduce swelling. 3) Take all of the antibiotic medicine exactly as directed until it is gone. Be careful not to miss any doses, especially during the first seven days. Follow Up with your doctor or this facility as directed. Check the infected area daily for the warning signs listed below. Get Prompt Medical Attention if any of the following occur: -- Spreading area of redness -- Increasing swelling or pain -- Appearance of pus or drainage -- Fever over 100.4 F (38.0 C) oral, or over 101.4 F (38.6 C) rectal, after two days on antibiotics Facial Cellulitis You have an infection of the skin known as cellulitis. This usually starts with a scrape, cut or insect bite which becomes infected. It may also occur from an infected oil gland (pimple) or hair follicle. This can be a serious condition and must be watched closely to be sure the infection is not spreading. With antibiotic treatment, the size of the red area will gradually shrink in size until the skin returns to normal. This will take 7-10 days. The red area should never increase in size once the antibiotic medicine has been started. Occasionally, an infection will be resistant to one antibiotic and another one will have to be used. Home Care: 1) Take all of the antibiotic medicine exactly as prescribed until it is gone. Be careful not to miss any doses, especially during the first few days. 2) A cool compress (face cloth soaked in cool water) applied to the face may help with the swelling and pain. 3) You may use acetaminophen (Tylenol) or ibuprofen (Motrin, Advil) to control pain, unless another medicine was prescribed. [ NOTE : If you have chronic liver or kidney disease or ever had a stomach ulcer or GI bleeding, talk with your doctor before using these medicines.] (Aspirin should never be used in anyone under 18 years of age who is ill with a fever. It may cause severe liver damage.) Follow Up with your doctor or this facility as directed. Check the infected area daily for the warning signs listed below. Get Prompt Medical Attention if any of the following occur: -- Increasing area of redness, swelling or pain -- Pus or fluid drainage from the skin or the eye -- Fever of 100.5 F (38 C) oral or 101.5 F (38.6 C) rectal for more than two days on antibiotics -- Eyelid swells shut -- Increasing headache or neck pain -- Unusual drowsiness or confusion -- Convulsion (seizure) Sulfamethoxazole, Trimethoprim Oral tablet What is this medicine? SULFAMETHOXAZOLE; TRIMETHOPRIM or SMX-TMP (suhl fuh meth OK ayden zohl; trye METH oh prim) is a combination of a sulfonamide antibiotic and a second antibiotic, trimethoprim. It is used to treat or prevent certain kinds of bacterial infections. It will not work for colds, flu, or other viral infections. How should I use this medicine? Take this medicine by mouth with a full glass of water. Follow the directions on the prescription label. Take your medicine at regular intervals. Do not take it more often than directed. Do not skip doses or stop your medicine early. Talk to your security police officer regarding the use of this medicine in children. Special care may be needed. This medicine has been used in children as young as 2 months of age. What side effects may I notice from receiving this medicine? Side effects that you should report to your doctor or health vp care management as soon as possible: allergic reactions like skin rash or hives, swelling of the face, lips, or tongue breathing problems fever or chills, sore throat irregular heartbeat, chest pain joint or muscle pain pain or difficulty passing urine red pinpoint spots on skin redness, blistering, peeling or loosening of the skin, including inside the mouth unusual bleeding or bruising unusually weak or tired yellowing of the eyes or skin Side effects that usually do not require medical attention (report to your doctor or health vp care management if they continue or are bothersome): diarrhea dizziness headache loss of appetite nausea, vomiting nervousness What may interact with this medicine? Do not take this medicine with any of the following medications: aminobenzoate potassium dofetilide metronidazole This medicine may also interact with the following medications: FEMI inhibitors like benazepril, enalapril, lisinopril, and ramipril cyclosporine digoxin diuretics indomethacin medicines for diabetes methenamine methotrexate phenytoin potassium supplements pyrimethamine sulfinpyrazone tricyclic antidepressants warfarin What if I miss a dose? If you miss a dose, take it as soon as you can. If it is almost time for your next dose, take only that dose. Do not take double or extra doses. Where should I keep my medicine? Keep out of the reach of children. Store at room temperature between 20 to 25 degrees C (68 to 77 degrees F). Protect from light. Throw away any unused medicine after the expiration date. What should I tell my health care provider before I take this medicine? They need to know if you have any of these conditions: anemia asthma being treated with anticonvulsants if you frequently drink alcohol containing drinks kidney disease liver disease low level of folic acid or yjcqyqy-[id number] dehydrogenase poor nutrition or malabsorption porphyria severe allergies thyroid disorder an unusual or allergic reaction to sulfamethoxazole, trimethoprim, sulfa drugs, other medicines, foods, dyes, or preservatives or trying to get breast-feeding What should I watch for while using this medicine? Tell your doctor or health vp care management if your symptoms do not improve. Drink several glasses of water a day to reduce the risk of kidney problems. Do not treat diarrhea with over the counter products. Contact your doctor if you have diarrhea that lasts more than 2 days or if it is severe and watery. This medicine can make you more sensitive to the sun. Keep out of the sun. If you cannot avoid being in the sun, wear protective clothing and use a sunscreen. Do not use sun lamps or tanning beds/booths. You have been given the following additional information: Cellulitis Cellulitis, Facial Sulfamethoxazole, Trimethoprim Oral tablet (Electronically signed by Susanne Benoit P.A.-C 12/26/2016 22:10)
--- NOTE | 2016-12-26 22:13 | ED MED RECONCILIATION SUMMARY ---
Patient: PAWEL XAVIER Medication Reconciliation Report [facility] VisitID: [id number] [address] [place] [address] 41y, M Registration Date/Time: 12/26/2016 Weight: 81.6 kg Height/Length: 74 in. BMI: 23.1 ALLERGIES: Amoxicillin The patient's Home Medications are listed below: THE FOLLOWING MEDICATIONS NEED TO BE RECONCILED: Albuterol Sulfate HFA Inhalation The source(s) of the original Home Medication information: Not obtained. The following Medications were given to the patient in the Emergency Department: Duoneb [Neb Tx] Neb TX 2 unit dose, administered: 12/26/2016 8:45:00 PM Bactrim DS [PO] PO 1 tab, administered: 12/26/2016 9:51:00 PM The following Medications were prescribed to the patient: Bactrim DS 800 mg / 160 mg: take 1 tablet orally every 12 hours for 10 days. No refill. Substitution is permissible. -- Susanne Benoit PElisabethAShakir Medrol Dosepak: take according to package directions. Dispense one (1) dosepak. No refills. Substitution is permissible. -- Susanne Benoit, P.A.-C
--- NOTE | 2016-12-26 22:13 | ED MAR SUMMARY ---
..... Medication Administration Record [facility] [address] [place] [address] Patient: PAWEL XAVIER Visit ID: [id number] 41y, M Weight: 81.6 kg Height/Length: 74 in BMI: 23.1 ALLERGIES: Amoxicillin Given 20:45 12/26/2016 Nikole Stephens R.N., Stop 20:55 12/26/2016 Nikole Stephens R.N. Medication Administered: DUONEB [NEB TX] (IPRATROPIUM-ALBUTEROL), Dose: 2 unit dose Nebulizer Neb TX. Medication Ordered: DuoNeb Neb Tx 2 unit doses (NOW). Given 21:51 12/26/2016 Nikole Stephens R.N. Medication Administered: BACTRIM DS [PO] (SULFAMETHOXAZOLE-TMP DS), Dose: 1 tab Tablets PO. Medication Ordered: Bactrim DS PO (Tablet 800-160 mg) 1 tab (NOW).
--- NOTE | 2016-12-26 22:13 | ED MAR SUMMARY ---
..... Medication Administration Record [facility] [address] [address] Patient: PAWEL XAVIER Visit ID: [id number] 41y, M Weight: 81.6 kg Height/Length: 74 in BMI: 23.1 ALLERGIES: Amoxicillin Given 20:45 12/26/2016 Nikole Stephens R.N., Stop 20:55 12/26/2016 Nikole Stephens R.N. Medication Administered: DUONEB [NEB TX] (IPRATROPIUM-ALBUTEROL), Dose: 2 unit dose Nebulizer Neb TX. Medication Ordered: DuoNeb Neb Tx 2 unit doses (NOW). Given 21:51 12/26/2016 Nikole Stephens R.N. Medication Administered: BACTRIM DS [PO] (SULFAMETHOXAZOLE-TMP DS), Dose: 1 tab Tablets PO. Medication Ordered: Bactrim DS PO (Tablet 800-160 mg) 1 tab (NOW).
--- NOTE | 2016-12-26 22:13 | ED MED RECONCILIATION SUMMARY ---
Patient: PAWEL XAVIER Medication Reconciliation Report [facility] VisitID: [id number] [address] [place] [address] 41y, M Registration Date/Time: 12/26/2016 Weight: 81.6 kg Height/Length: 74 in. BMI: 23.1 ALLERGIES: Amoxicillin The patient's Home Medications are listed below: THE FOLLOWING MEDICATIONS NEED TO BE RECONCILED: Albuterol Sulfate HFA Inhalation The source(s) of the original Home Medication information: Not obtained. The following Medications were given to the patient in the Emergency Department: Duoneb [Neb Tx] Neb TX 2 unit dose, administered: 12/26/2016 8:45:00 PM Bactrim DS [PO] PO 1 tab, administered: 12/26/2016 9:51:00 PM The following Medications were prescribed to the patient: Bactrim DS 800 mg / 160 mg: take 1 tablet orally every 12 hours for 10 days. No refill. Substitution is permissible. -- Susanne Benoit PElisabethAShakir Medrol Dosepak: take according to package directions. Dispense one (1) dosepak. No refills. Substitution is permissible. -- Susanne Benoit, P.A.-C
== END 2016-12-26 22:07 | disposition home or self-care (01) ==
LOC: ED SRH 20:05
DX: L03.811 Cellulitis of head [any part, except face] (principal); L03.113 Cellulitis of right upper limb; I10 Essential (primary) hypertension; Z88.1 Allergy status to other antibiotic agents; J45.909 Unspecified asthma, uncomplicated